=== PATIENT | male | born 1960 | race Caucasian/White ===

== ENCOUNTER 2021-08-08 09:17 | Inpatient (IN) ==
[2021-08-08] MEDS ORDERED: SODIUM CHLORIDE 0.9% 1000ML 500 ML IV ONE (09:39)
[2021-08-08] MEDS ORDERED: ALBUT/IPRATROP 3MG/0.5MG NEB 3 ML VIAL NEB ONE (09:39)
[2021-08-08] MEDS ORDERED: methylPREDNISolone 125 MG/2 ML VIAL IV STA (09:39)
[2021-08-08] MEDS ORDERED: LABETALOL HCL IV 5 MG/ML 20ML IV STA (09:39)
[2021-08-08] MEDS ORDERED: cefTRIAXone SODIUM 2,000 MG/70 ML BAG IV STA (09:44)
--- NOTE | 2021-08-08 09:51 | Emergency Department Note ---
Impression & Plan Acute respiratory distress, Hypertension, SOB (shortness of breath), Wheezing ED Provider Note NAME: QUE TINSLEY AGE: 61 SEX: M : 1960 ARRIVES VIA: Ambulance INFORMANT: [Patient] ED PROVIDER(S): [Ortiz Moore MD] CHIEF COMPLAINT: Short of breath HISTORY OF PRESENT ILLNESS: The patient is a 61-year-old male who quit smoking about 10 months ago. He feels he may have COPD although was never officially diagnosed. He has noticed shortness of breath that has worsened over the last several months. Today he was quite short of breath and presents by ambulance. He can hear himself wheeze. He has been using an [id number]-wremwqb inhaler from [employer] which helps a b it with his breathing. In route, he received a DuoNeb which helped quite a bit. Patient states that he takes no medications. He has not seen his doctor in about 5 years. The patient is not vaccinated against COVID-19. He has had no Covid exposures. He denies any fever. He is coughing and the cough is sometimes productive of white sputum. He has a tightness in his chest and some pain in the chest with coughing but no chest pain otherwise. No vomiting or diarrhea. REVIEW OF SYSTEMS: See HPI for pertinent positives and negatives. A total of ten systems were reviewed and were otherwise negative. PMHx/PSHx: See Below SOCIAL HISTORY: See Below. PHYSICAL EXAM: GENERAL: Patient is in mild respiratory distress. HEENT: No acute trauma, normocephalic atraumatic, mucous membranes moist, no nasal congestion, no scleral icterus. NECK: No stridor, no adenopathy, no meningismus, trachea is midline. LUNGS: Wheezing bilaterally, increased respiratory rate, mild respiratory di stress. Accessory muscle use noted. HEART: Mildly tachycardic, regular rhythm, no murmurs. ABDOMEN: Soft, nontender, bowel sounds positive, no hernias, no peritonitis. EXTREMITIES: No cyanosis, mild bilateral pedal edema, full range of motion of all the joints without pain or difficulty, no signs for acute trauma. NEUROLOGIC: Oriented x 3, no acute motor or sensory deficits, no focal weakness. SKIN: No rash, no jaundice, no diaphoresis. DIFFERENTIAL DIAGNOSIS: Reactive airway disease, pneumonia, pneumothorax, COPD, COVID-19, CHF, infection, cardiac ischemia, pulmonary embolism, bronchitis, musculoskeletal, gastrointestinal, as well as other pathologies. EMERGENCY DEPARTMENT COURSE/PROCEDURES: ECG: Indication was shortness of breath. The ECG shows a normal sinus rhythm with a rate of 99. There are some inverted T waves in the anterior leads. Some flattened T waves in the lateral leads. No ST elevation. No PVCs. The QTc is 487. Continuous Cardiac Monitoring: An order was placed for continuous cardiac monitoring. The monitor shows a rate of 101 with sinus tachycardia. Critical Care Note: I have personally spent 53 minutes of critical care time in the direct management of this patient. This includes bedside care, interpretation of diagnostic studies, and testing, discussion with consultants, patient, and family members, and other required patient management activities. This 53 minutes is in excess of all separately billable procedures. MEDICAL DECISION MAKING: There is no leukocytosis or worrisome anemia. There is a normal platelet count. Renal panel testing shows a mildly low potassium, no kidney failure. Lactic acid level was somewhat elevated, consistent with possible infection versus hypoxia/dehydration. Alk phos mildly elevated, the bilirubin was normal. ECG showed a sinus rhythm, no acute ischemia. Cardiac enzyme testing x1 was not consistent with acute cardiac injury. Covid testing returned negative. Chest film did not show pneumonia or CHF. On exam, the patient was obviously short of breath and in mild respiratory distress. He was wheezing. He was hypertensive. The patient was aggressively managed. He was given IV saline, IV Solu-Medrol, IV ceftriaxone. He received a 1 hour DuoNeb. He was ordered for IV labetalol however, the patient's blood pressure began to trend down on its own as per nursing staff and thus, this med was held. The patient does seem to be improving with the nebulizer treatment and Solu- Medrol treatment. He is in need of a hospital stay given his severe dyspnea. He has not been to see a physician in some time. I do suspect some underlying lung disease. He likely has an acute bronchitis which has flared his underlying lung issue. I spoke to the patient, I spoke with the case managers. The on-call hospitalist was consulted. Past Med/Surg History Medical History FOUZIA (generalized anxiety disorder) HTN (hypertension) Mood disorder Surgical History Hx of craniotomy Family History Father Iliac aneurysm Social History Smoking Status: Former smoker Tobacco Type: Cigarettes Hx Alcohol Use: Yes Alcohol type: beer Alcohol Intake Frequency: 2-4 x/Month Feels Safe at Home: Yes Allergies Allergies Allergy/AdvReac Type Severity Reaction Status Date / Time No Known Allergies Allergy Unverified 08/08/21 10:11 Home Meds Home Medications Medication Instructions Recorded Confirmed No Known Home Medications 08/08/21 08/08/21 Results & Data (ED) Vital Signs Vital Signs - 24 hr 08/08/21 09:30 08/08/21 09:50 08/08/21 10:00 Temperature 37.5 C Temperature Source Oral Pulse Rate 101 H 90 Pulse Rate [Right] Pulse Rate from SpO2 Sensor 91 H Pulse Rhythm Regular Pulse Strength Normal Respiratory Rate 24 28 H Respiratory Effort / Characteristics Spontaneous Short of Breath SOB on Exertion Spontaneous Short of Breath SOB on Exertion Respiratory Depth Normal Normal Respiratory Pattern Regular Tachypnea Tachypnea Blood Pressure 173/111 H 122/93 Blood Pressure Mean 131 102 Blood Pressure Position Semi-fowlers Pulse Oximetry 86 L 93 Oxygen Delivery Method Room Air Nasal Cannula Nasal Cannula Oxygen Flow Rate 0 2 2 Sepsis Recent Fever Within 48 Hours No Sepsis New/Unexplained Change in Mental Status No Sepsis Action Taken by Nursing Physician Notified Oxygen Flow Rate - Titration 2 Pulse Oximetry Post Tiitration 93 08/08/21 10:08 08/08/21 10:15 08/08/21 10:30 Temperature Temperature Source Pulse Rate 100 H 85 Pulse Rate [Right] 88 Pulse Rate from SpO2 Sensor 101 H 87 Pulse Rhythm Pulse Strength Respiratory Rate 24 28 H 25 H Respiratory Effort / Characteristics Spontaneous Short of Breath SOB on Exertion Spontaneous Grunting Respiratory Depth Respiratory Pattern Blood Pressure 114/88 126/84 Blood Pressure Mean 96 98 Blood Pressure Position Pulse Oximetry 93 92 93 Oxygen Delivery Method Nasal Cannula Nasal Cannula Nasal Cannula Oxygen Flow Rate 2 2 2 Sepsis Recent Fever Within 48 Hours Sepsis New/Unexplained Change in Mental Status Sepsis Action Taken by Nursing Oxygen Flow Rate - Titration Pulse Oximetry Post Tiitration 08/08/21 10:45 Temperature Temperature Source Pulse Rate 94 H Pulse Rate [Right] Pulse Rate from SpO2 Sensor 94 H Pulse Rhythm Pulse Strength Respiratory Rate 24 Respiratory Effort / Characteristics Respiratory Depth Respiratory Pattern Blood Pressure 147/106 H Blood Pressure Mean 119 Blood Pressure Position Pulse Oximetry 99 Oxygen Delivery Method Nebulizer Oxygen Flow Rate Sepsis Recent Fever Within 48 Hours Sepsis New/Unexplained Change in Mental Status Sepsis Action Taken by Nursing Oxygen Flow Rate - Titration Pulse Oximetry Post Tiitration Home Medications Current Medication List: was personally reviewed by me Laboratory Data Attestation: I reviewed the patient's lab results. Result diagrams: 08/08/21 09:40 08/08/21 09:40 Lab Results 08/08/21 08/08/21 08/08/21 Range/Units 09:30 09:30 09:40 WBC 6.18 (4.8-10.8) K/uL RBC 5.23 (4.7-6.1) M/uL Hgb 17.6 (14.0-18.0) g/dL Hct 52.8 H (42-52) % MCV 101.0 H (80-100) fL MCH 33.7 (25-34) pg MCHC 33.3 (32-36) g/dL RDW Std Deviation 53.1 H (36.4-46.3) fL RDW Coeff of Clem 14.3 (11.5-14.5) % Plt Count 329 (130-400) K/uL MPV 11.1 H (7.4-10.4) fL Immature Gran % (Auto) 1.5 % Neut % (Auto) 59.5 % Lymph % (Auto) 30.9 % Nuckolls % (Auto) 6.6 % Eos % (Auto) 1.3 % Baso % (Auto) 0.2 % Neut # (Auto) 3.68 (1.4-6.5) K/uL Lymph # (Auto) 1.91 (1.2-3.4) K/uL Nuckolls # (Auto) 0.41 (0.11-0.59) K/uL Eos # (Auto) 0.08 (0-0.5) K/uL Baso # (Auto) 0.01 (0-0.2) K/uL Immature Gran # (Auto) 0.09 H (0.00-0.02) K/uL Sodium (136-145) mmol/L Potassium (3.5-5.1) mmol/L Chloride (98-107) mmol/L Carbon Dioxide (21-32) mmol/L Anion Gap (3-11) BUN (7-18) mg/dl Creatinine (0.6-1.4) mg/dl Est Cr Clr Drug Dosing ml/min Est GFR ( Amer) ml/min Est GFR (Non-Af Amer) ml/min BUN/Creatinine Ratio (10-20) Glucose (70-99) mg/dl Lactate (0.4-2.0) mmol/L Calcium (8.5-10.1) mg/dl Magnesium (1.8-2.4) mg/dl Total Bilirubin (0.2-1) mg/dl AST (15-37) U/L ALT (12-78) U/L Alkaline Phosphatase (45-117) U/L Troponin I (0-0.045) ng/ml Total Protein (6.4-8.2) gm/dl Albumin (3.4-5.0) gm/dl Globulin (2.5-4.0) gm/dl Albumin/Globulin Ratio (0.9-2) COVID-19 Eval Order Covid19 at [facility] SARS-CoV-2 (PCR) NEGATIVE (Negative) 08/08/21 08/08/21 Range/Units 09:40 10:11 WBC (4.8-10.8) K/uL RBC (4.7-6.1) M/uL Hgb (14.0-18.0) g/dL Hct (42-52) % MCV (80-100) fL MCH (25-34) pg MCHC (32-36) g/dL RDW Std Deviation (36.4-46.3) fL RDW Coeff of Clem (11.5-14.5) % Plt Count (130-400) K/uL MPV (7.4-10.4) fL Immature Gran % (Auto) % Neut % (Auto) % Lymph % (Auto) % Nuckolls % (Auto) % Eos % (Auto) % Baso % (Auto) % Neut # (Auto) (1.4-6.5) K/uL Lymph # (Auto) (1.2-3.4) K/uL Nuckolls # (Auto) (0.11-0.59) K/uL Eos # (Auto) (0-0.5) K/uL Baso # (Auto) (0-0.2) K/uL Immature Gran # (Auto) (0.00-0.02) K/uL Sodium 138 (136-145) mmol/L Potassium 3.3 L (3.5-5.1) mmol/L Chloride 95 L (98-107) mmol/L Carbon Dioxide 34 H (21-32) mmol/L Anion Gap 9.0 (3-11) BUN 7 (7-18) mg/dl Creatinine 0.91 (0.6-1.4) mg/dl Est Cr Clr Drug Dosing 101.0 ml/min Est GFR ( Amer) 106.5 ml/min Est GFR (Non-Af Amer) 91.9 ml/min BUN/Creatinine Ratio 7.8 L (10-20) Glucose 106 H (70-99) mg/dl Lactate 2.2 H* (0.4-2.0) mmol/L Calcium 8.7 (8.5-10.1) mg/dl Magnesium 2.4 (1.8-2.4) mg/dl Total Bilirubin 0.5 (0.2-1) mg/dl AST 28 (15-37) U/L ALT 37 (12-78) U/L Alkaline Phosphatase 156 H (45-117) U/L Troponin I < 0.015 (0-0.045) ng/ml Total Protein 7.6 (6.4-8.2) gm/dl Albumin 3.2 L (3.4-5.0) gm/dl Globulin 4.4 H (2.5-4.0) gm/dl Albumin/Globulin Ratio 0.7 L (0.9-2) COVID-19 Eval Order SARS-CoV-2 (PCR) (Negative) Administered Medications Discontinued Medications Albuterol (Albut/Ipratrop 3mg/0.5mg Neb 3 Ml Vial) 12 ml NEB ONE ONE Stop: 08/08/21 09:40 Last Admin: 08/08/21 10:30 Dose: 12 ml Documented by: [id number] Sodium Chloride (Nss 1000ml) 500 mls @ 999 mls/hr IV .Q31M ONE Stop: 08/08/21 10:09 Last Admin: 08/08/21 10:42 Dose: 999 mls/hr Documented by: [id number] Ceftriaxone Sodium (Rocephin) 2,000 mg in 70 mls @ 140 mls/hr IV NOW STA Stop: 08/08/21 10:13 Last Infusion: 08/08/21 11:41 Dose: 0 mls/hr Documented by: [id number] Admin: 08/08/21 10:50 Dose: 140 mls/hr Documented by: [id number] Methylprednisolone (Methylprednisolone 125 Mg/2 Ml Vial) 125 mg IV NOW STA Stop: 08/08/21 09:40 Last Admin: 08/08/21 10:47 Dose: 125 mg Documented by: [id number] Potassium Chloride (Potassium Chloride Crtab 20 Meq Tabcr) 40 meq PO NOW STA Stop: 08/08/21 12:55 Last Admin: 08/08/21 13:34 Dose: 40 meq Documented by: [id number] Imaging Data Radiologist's Impression: Chest X-Ray 08/08/21 09:39 XR chest 1V portable HISTORY: 61 years-old Male SOB acute shortness of breath COMPARISON: None TECHNIQUE: Portable AP view of the chest FINDINGS: Cardiac silhouette is upper limits of normal in size. Calcified plaque of the thoracic aorta. No pneumothorax, large pleural effusion or overt pulmonary edema. Mild blunting of the costophrenic angles. There is a suggested small hiatal hernia. No acute fracture. IMPRESSION: 1. No acute processes of the chest. 2. Small hiatal hernia. ACT 112: Negative or not required by law. The above report was generated using voice recognition software. It may contain grammatical, syntax or spelling errors. Electronically signed by: Richardson Vazquez M.D. 08/08/2021 10:20 AM Discharge Plan Visit Data Chief Complaint: Shortness of Breath/Dyspnea Stated Complaint: SOB ED Provider: Ortiz Moore Discharge Problem: Acute respiratory distress, Hypertension, SOB (shortness of breath), Wheezing Patient Disposition: Admitted As Inpatient Condition: Fair
[2021-08-08 09:55] LABS: Basophils # (auto) 0.01 K/uL (0-0.2); Basophils % (auto) 0.2 %; Eosinophils # (auto) 0.08 K/uL (0-0.5); Eosinophils % (auto) 1.3 %; Hematocrit (blood only) 52.8 % (42-52); Hemoglobin 17.6 g/dL (14.0-18.0); Immature Granulocytes # (auto) 0.09 K/uL (0.00-0.02); Immature Granulocytes % (auto) 1.5 %; Lymphocytes # (auto) 1.91 K/uL (1.2-3.4); Lymphocytes % (auto) 30.9 %; Mean Corpuscular Hemoglobin 33.7 pg (25-34); Mean Corpuscular Hgb Conc 33.3 g/dL (32-36); Mean Platelet Volume 11.1 fL (7.4-10.4); Monocytes # (auto) 0.41 K/uL (0.11-0.59); Monocytes % (auto) 6.6 %; Neutrophils # (auto) 3.68 K/uL (1.4-6.5); Neutrophils % (auto) 59.5 %; Platelet Count 329 K/uL (130-400); RDW Coefficient of Variation 14.3 % (11.5-14.5); RDW Standard Deviation 53.1 fL (36.4-46.3); Red Blood Count 5.23 M/uL (4.7-6.1); White Blood Count 6.18 K/uL (4.8-10.8)
[2021-08-08 10:12] LABS: Alanine Aminotransferase 37 U/L (12-78); Albumin Level 3.2 gm/dl (3.4-5.0); Aspartate Aminotransferase 28 U/L (15-37); BUN Creatinine Ratio 7.8 (10-20); Blood Urea Nitrogen 7 mg/dl (7-18); Calcium 8.7 mg/dl (8.5-10.1); Carbon Dioxide 34 mmol/L (21-32); Chloride 95 mmol/L (98-107); Est GFR (African American) 106.5 ml/min; Est GFR (Non-African American) 91.9 ml/min; Glucose 106 mg/dl (70-99); Magnesium 2.4 mg/dl (1.8-2.4); Potassium 3.3 mmol/L (3.5-5.1); Sodium 138 mmol/L (136-145)
[2021-08-08 10:17] LABS: Albumin Globulin Ratio 0.7 (0.9-2); Alkaline Phosphatase 156 U/L (45-117); Bilirubin,Total 0.5 mg/dl (0.2-1); Globulin 4.4 gm/dl (2.5-4.0); Total Protein 7.6 gm/dl (6.4-8.2); Troponin I < 0.015 ng/ml (0-0.045)
--- NOTE | 2021-08-08 10:21 | XRay Report ---
XR chest 1V portable HISTORY: 61 years-old Male SOB acute shortness of breath COMPARISON: None TECHNIQUE: Portable AP view of the chest FINDINGS: Cardiac silhouette is upper limits of normal in size. Calcified plaque of the thoracic aorta. No pneu mothorax, large pleural effusion or overt pulmonary edema. Mild blunting of the costophrenic angles. There is a suggested small hiatal hernia. No acute fracture. IMPRESSION: 1. No acute processes of the chest. 2. Small hiatal hernia. ACT 112: Negative or not required by law. The above report was generated using voice recognition software. It may contain grammatical, syntax o r spelling errors. Electronically signed by: Richardson Vazquez M.D. 08/08/2021 10:20 AM
--- NOTE | 2021-08-08 11:47 | History & Physical Report ---
Date of Service August 08, 2021 Assessment & Plan (1) Acute respiratory failure with hypoxia: Plan: -Admit to [facility] with telemetry -Patient presenting from home with reports of worsening shortness of breath and cough for 8 months -In the ED, found to be hypoxic on room air at 86%, currently requiring 2 L of oxygen via nasal cannula -Former heavy tobacco use, quitting 8 months ago. Suspect underlying COPD. -S/p Solu-Medrol 125 mg, continue with Solu-Medrol 40 mg q8h -S/p IV ceftriaxone, continue with and add doxycycline -Supportive care with nebs, incentive spirometer, flutter valve -wean O2 as able -will need outpatient follow up for PFTs and pulmonary (2) Lower urinary tract symptoms (LUTS): Plan: -check UA -?? BPH -likely will need outpatient urology follow up (3) HTN (hypertension): Plan: -Previously prescribed lisinopril in the past, however self stopped medication several years ago -BP intermittently elevated, continue to monitor and add hypertensive if needed (4) Mood disorder: (5) FOUZIA (generalized anxiety disorder): Plan: -Previously on citalopram and Abilify however self stopped medication several years ago -Outpatient follow-up (6) DVT prophylaxis: Plan: -SQ Lovenox History of Present Illness Chief Complaint: Shortness of breath Primary Care Provider: Luis Miguel Edgar MD 61-year-old male with PMH HTN, mood disorder, anxiety disorder, former tobacco use (quit smoking 8 months ago), and other problems listed below who presents the ED with reports of shortness of breath. Patient reports worsening shortness of breath over the past 8 months. He reports severe shortness of breath with minimal exertion. He also describes chest tightness. He has had a cough productive for ribeiro/white sputum. No fevers or chills. Patient denies lightheadedness, dizziness, diaphoresis, syncopal events. No abdominal pain, nausea, vomiting, diarrhea. Patient reports urinary hesitancy and frequency. No dysuria. In the ED, patient was saturating 86% on room air, currently requiring 2 L of oxygen via nasal cannula. COVID-19 testing negative. CXR negative for acute cardiopulmonary findings. Patient was given IV ceftriaxone, IV Solu- Medrol 125 mg IV, IVF, hour-long nebulizer treatment. Patient reports much i mprovement after nebulizer treatment. Allergies Allergy/AdvReac Type Severity Reaction Status Date / Time No Known Allergies Allergy Unverified 08/16/21 00:08 Home Medications Medication Instructions Recorded Confirmed Type albuterol sulfate 90 mcg/actuation 1 inh INHALATION QID PRN #6.7 g 08/11/21 08/16/21 Rx aerosol inhaler umeclidinium 62.5 mcg-vilanterol 1 ea INHALATION DAILY #60 ea 08/11/21 08/16/21 Rx 25 mcg/actuation powdr for inhalation (Anoro Ellipta) pantoprazole 40 mg tablet,delayed 40 mg PO DAILY #30 tab 08/13/21 08/16/21 Rx release ibuprofen 200 mg tablet (Advil) 400 mg PO Q6H PRN 08/16/21 08/16/21 History prednisone 20 mg tablet 20 mg PO .TAPER UD 08/16/21 08/16/21 History Past Med/Surg History Medical History FOUIZA (generalized anxiety disorder) HTN (hypertension) Mood disorder Surgical History Hx of craniotomy Family History Father Iliac aneurysm Social History Smoking Status: Former smoker Tobacco Type: Cigarettes Hx Alcohol Use: Yes Alcohol type: beer, wine and hard liquor Alcohol Intake Frequency: 2-4 x/Month Hx Substance Use: No Preferred Language: Sinhala Communication Ability: Effective Wing Scorer Required: No Beliefs That Will Affect Care: None marital status: Single Current Living Situation: Other Current Living Situation Comment: Roommate Feels Safe at Home: Yes Assistive Devices: Glasses Review of Systems Review of Systems: ROS per HPI, all other systems reviewed and negative Physical Exam Constitutional: well developed, well nourished and + ill appearing; no acute distress Eyes: PERRL, conjunctivae normal, anicteric sclerae ENMT: external ear and nose normal, oropharynx normal Respiratory: no respiratory distress and + not able to speak in complete sentence Auscultation: + diminished lung sounds and + wheezes (Expiratory throughout all lung rodriguez) Shortness of breath with minimal exertion Cardiovascular: Rate/Rhythm: regular rate and regular rhythm Vessels: normal peripheral pulses Extremities: no edema Gastrointestinal (Abdomen): normal bowel sounds, soft, nontender, no hepatosplenomegaly Musculoskeletal: no cyanosis or clubbing, extremities motor strength 5/5 Skin: no rashes, warm and dry Neurologic: PERRL, EOMI, accommodation nl, no face palsy, no dysarthria Psychiatric: A+Ox3, euthymic affect Results & Data Results & Data ([facility]) Vital Signs (Past 12 Hours) Vital Signs Temp Pulse Pulse Resp BP Pulse Ox 08/08/21 11:30 88 19 160/95 H 100 08/08/21 11:00 92 H 19 152/100 H 99 08/08/21 10:45 94 H 24 147/106 H 99 08/08/21 10:30 85 88 25 H 126/84 93 08/08/21 10:15 100 H 28 H 114/88 92 08/08/21 10:08 24 93 08/08/21 10:00 90 28 H 122/93 93 08/08/21 09:30 37.5 C 101 H 24 173/111 H 86 L Laboratory Results Short CBC 08/08/21 Range/Units 09:40 WBC 6.18 (4.8-10.8) K/uL Hgb 17.6 (14.0-18.0) g/dL Hct 52.8 H (42-52) % Plt Count 329 (130-400) K/uL BMP 08/08/21 09:40 Sodium 138 Potassium 3.3 L Chloride 95 L Carbon Dioxide 34 H BUN 7 Creatinine 0.91 Glucose 106 H Calcium 8.7 Cardiac Enzymes 08/08/21 Range/Units 09:40 Troponin I < 0.015 (0-0.045) ng/ml Liver Function 08/08/21 Range/Units 09:40 Total Bilirubin 0.5 (0.2-1) mg/dl AST 28 (15-37) U/L ALT 37 (12-78) U/L Alkaline Phosphatase 156 H (45-117) U/L Albumin 3.2 L (3.4-5.0) gm/dl Diagnostic Findings Chest X-Ray 08/08/21 09:39 XR chest 1V portable HISTORY: 61 years-old Male SOB acute shortness of breath COMPARISON: None TECHNIQUE: Portable AP view of the chest FINDINGS: Cardiac silhouette is upper limits of normal in size. Calcified plaque of the thoracic aorta. No pneumothorax, large pleural effusion or overt pulmonary edema. Mild blunting of the costophrenic angles. There is a suggested small hiatal hernia. No acute fracture. IMPRESSION: 1. No acute processes of the chest. 2. Small hiatal hernia. ACT 112: Negative or not required by law. The above report was generated using voice recognition software. It may contain grammatical, syntax or spelling errors. Electronically signed by: Richardson Vazquez M.D. 08/08/2021 10:20 AM Code Status & VTE Plan Code Status Patient is a full code as per my discussion with him. VTE Prophylaxis Plan VTE Prophylaxis will be ordered: Yes Supervising Physician Co-Signing Physician Notes Patient was seen and examined. Agree with Kristan RICHARDS exam, assessment and plan. 61-year-old male with PMH of HTN, mood disorder, anxiety disorder, former tobacco used presented to the ER with worsening shortness of breath. Patient said shortness of breath has been worsening in the last few months associated with chest tightness. He said he ran out of breath minimal exertion. Denies any palpitation, dizziness, diaphoresis, lightheadedness, nausea and vomiting. In the ER he was found to be hypoxia with Oxygen level 86% and was placed on 2 L of oxygen via nasal cannula. COVID-19 testing negative. CXR on admission negative for acute cardiopulmonary findings. Received IV ceftriaxone, IV Solu- Medrol 125 mg IV, IVF, hour-long nebulizer treatment. Continue antibiotic with Rocephin and doxycycline. will add incentive spirometer, flutter valve. Continue oxygen supplement. Continue monitor closely. MD Emani
[2021-08-08 12:32] LABS: Allen Test Pos (Pos); Base Excess ABG 3.8 mEq/L (-9-1.8); HCO3 ABG 35 mmol/L (19-24); Oxygen Saturation ABG 90.4 % (90-95); PCO2 ABG 83 mmHg (35-46); PO2 ABG 66 mmHg (80-95); pH ABG 7.24 (7.35-7.45)
--- NOTE | 2021-08-08 12:34 | CT Scan Report ---
CT lung screening (low dose) CLINICAL HISTORY: hypoxia, suspected COPD, former smoker COMPARISON STUDY: No previous studies for comparison. CT DOSE: 134.12 mGy.cm TECHNIQUE: Low-dose helical CT was acquired without intravenous contrast from lung apices to bases a nd reconstructed at 2.5 mm every 2 mm. Automated exposure control was utilized for the study. A dos e lowering technique was utilized adhering to the principles of ALARA. FINDINGS: Suboptimal evaluation of the lung bases due to the mild respiratory motion artifact. No pn eumothorax. No pleural effusions. Mild diffuse bronchial wall thickening. Mild emphysema. Suboptimal evaluation of the lungs due to the low-dose technique. There is mild emphysema. Mild focal reticulono dular interstitial thickening at the lung apices. Dominant nodular density within the right lung apex measures 5 mm. This could be chronic or represent mild inflammatory/infectious change. No suspicious pulmonary nodules identified. There are a few tiny tree-in-bud nodular opacities within the lungs mo st pronounced within the right lower lobe. This may represent a mild infectious bronchiolitis. There is trace fluid within the trachea and mainstem bronchi. No mediastinal or hilar lymphadenopathy. Limi raeann views of the upper abdomen demonstrate a normal liver, spleen, and adrenal glands. There is a sma ll hiatus hernia. Normal caliber thoracic aorta. The heart is normal in size. No pericardial effusion . Multiple old bilateral rib fractures. IMPRESSION: 1. No suspicious pulmonary nodules identified. Tiny nodular densities measuring up to 5 mm at the papi g apices are low suspicion. 2. Focal reticulonodular interstitial thickening within the lung apices with diffuse bronchial wall t hickening and a few scattered tree-in-bud nodular opacities within the lungs. Findings favor a mild i nfectious bronchiolitis. This could obviously be this could also be seen in the setting of respirator y bronchiolitis interstitial lung disease given history of smoking. 3. Otherwise, no focal lung consolidations. 4. Mild emphysema. Overall Lung RADS Category: 2 - Benign appearance or behavior - Nodules with a very low likelihood o f becoming a clinically active cancer due to size or lack of growth. Continue annual screening. Modifier S: No ACT 112: Negative or not required by law. Electronically signed by: Dash Sanchez M.D. 08/08/2021 12:32 PM
[2021-08-08] MEDS ORDERED: POTASSIUM CHLORIDE CRTAB 20 MEQ TABCR PO STA (12:54)
--- NOTE | 2021-08-08 14:00 | Pulmonary Consultation ---
Date of Consultation August 08, 2021 Assessment & Plan (1) Shortness of breath: Attending: Dr. Mendez Impression: Is a 61-year-old male with no medical treatment within the last 5 years. He has a tobacco abuse history since age 17. He quit 8 months ago but does admit to smoking as recently as 3 months ago. Patient presents with hypercapnia. Presumed COPD and presumed obstructive sleep apnea. Will need full outpatient work-up including pulmonary function tests and polysomnog curtis exam. Shortness of breath is most likely secondary to presumed COPD Received Solu-Medrol 125 mg IV in the emergency department Currently scheduled to receive Solu-Medrol 40 mg IV 3 times daily Would initiate taper over 7-day. Outpatient follow-up for pulmonary function testing and polysomnography exam We will work on qualifying him for discharge with AVAPS We will need to step to rule out need for ambulatory supplemental oxygen (2) Hypoxia: Most likely secondary to presumed COPD Oxygenation improved with BiPAP/CPAP therapy We will need to step prior to discharge We will check nocturnal study tonight Continue to monitor on telemetry Check echocardiogram (3) Hypercapnia: Patient presenting PCO2 of 83 Serum CO2 34 Patient will benefit from positive pressure treatment. We will start with BiPAP. Would benefit from AVAPS on discharge (4) Obesity: Patient with BMI of 31.9 kg/m Discussed benefits of weight loss Patient should establish with outpatient PCP and talk about weight loss strategies with them (5) History of tobacco abuse: History of tobacco abuse since age 17 "Quit" 8 months ago but has smoked as recently as 3 months ago Discussed complete abstention with patient (6) Obstructive sleep apnea: Diagnosis of RYAN is presumed based on body habitus and snoring history Recommend patient get polysomnography exam as an outpatient Patient will need BiPAP/AVAPS for hypercapnia Continue with BiPAP at bedtime and as needed (7) COPD (chronic obstructive pulmonary disease): Previous tobacco abuse history since age [age] Patient states that he quit smoking 8 months ago regularly but he has smoked as recently as 3 months ago Recommend complete tobacco abstention We will treat for presumptive COPD Start Anoro Ellipta (LAMA/LABA) Agree with inpatient steroids for bronchospasms on exam Would titrate off quickly as tolerated No indication for antibiotics at this time Could check procalcitonin. No leukocytosis, no lactic acid elevation. (8) DVT prophylaxis: No plans for bronchoscopy or other invasive procedures by pulmonary Would recommend chemical prophylaxis and SCDs Ambulate as tolerated Supervising Physician Co-Signing Physician Notes Patient seen and examined. Me are reviewed. Discussed with critical care DIGNA. Patient likely has underlying obstructive lung disease of significant severity. His CO2 is elevated indicating likely chronic hypercarbic respiratory failure. He would likely benefit from home trilogy. He should have outpatient PFTs performed as well as an overnight attended polysomnogram. Agree with treatment for acute exacerbation of COPD with systemic steroids but can likely get away with a 5-day burst of prednisone. Azithromycin indicated for acute exacerbation of COPD. Do not need more broad-spectrum antibiotics. Patient will need to be assessed for supplemental oxygen prior to discharge. Would continue BiPAP overnight tonight and repeat venous blood gas in the morning to ensure CO2 is clearing. We will continue to follow with you History of Present Illness Reason for Consultation: Shortness of breath\\presumed COPD History of Present Illness Attending: Dr. Mendez This is a 61-year-old male with a past medical history of mood disorder, generalized anxiety disorder, hypertension, lower respiratory tract symptoms, past tobacco abuse history (quit 3 years ago), obesity. The patient states that he has had a progressive shortness of breath and cough for the past several months. He previously smoked and quit 8 years ago but notes that he has smoked periodically with his last cigarette being 3 years ago. He has no ethanol abuse history. He previously worked at [employer] and denies any vocational exposure. He has no prior history of pulmonary function testing or following with a manager wind. On presentation patient was found to be hypoxic and started on supplemental oxygen. Arterial blood gases were obtained which showed PH of 7.24, PCO2 83, PaO2 66, P HCO3 35 on 3 L of supplemental oxygen. Patient was started on BiPAP 10/5 with an FiO2 of 40%. He did not tolerate this well and was changed to CPAP at 10 cm of water. Patient has a generally nonproductive cough but does occasionally produce white sputum. He denies any hemoptysis. He has no history of malignancy. He thinks that his grandfather may have had lung cancer but he is unsure. He has a mother with a history of COPD as a non-smoker. The patient states that he has exertional dyspnea with no chest pain with exertion. The patient is not . He lives with a roommate. He is unvaccinated. He denies exposure to Covid positive people recently. He previously worked at [employer] and is retired. Allergies Allergy/AdvReac Type Severity Reaction Status Date / Time No Known Allergies Allergy Unverified 08/08/21 10:11 Home Medications Medication Instructions Recorded Confirmed Type No Known Home Medications 08/08/21 08/08/21 History Patient History Medical History FOUZIA (generalized anxiety disorder) HTN (hypertension) Mood disorder Surgical History Hx of craniotomy Family History Father Iliac aneurysm Social History Smoking Status: Former smoker Tobacco Type: Cigarettes Hx Alcohol Use: Yes Alcohol type: beer Alcohol Intake Frequency: 2-4 x/Month Feels Safe at Home: Yes Review of Systems Review of Systems: All systems reviewed & are unremarkable except as noted in Subjective Physical Exam Physical Exam: GENERAL : No acute distress EYES: No icterus, gaze conjugate NOSE: No evidence of epistaxis MOUTH: No lesions or candidiasis. CPAP mask in place NECK: Supple. No JVD LUNGS: Deep inspiration induces cough. Patient does have expiratory wheezes in bilateral midlung zones. HEART: Regular, rate controlled. No appreciation of ectopy ABDOMEN: Soft, NT, ND, BS Present EXTREMITIES: No LE edema, pedal pulses intact and equal bilaterally NEURO: A&OX3 Results & Data Results & Data ([facility]) Vital Signs (Past 12 Hours) Vital Signs Temp Pulse Pulse Resp BP BP Pulse Ox 08/08/21 13:15 81 22 94 08/08/21 12:56 84 20 132/73 92 08/08/21 12:06 89 L 08/08/21 11:30 88 19 160/95 H 100 08/08/21 11:00 92 H 19 152/100 H 99 08/08/21 10:45 94 H 24 147/106 H 99 08/08/21 10:30 85 88 25 H 126/84 93 08/08/21 10:15 100 H 28 H 114/88 92 08/08/21 10:08 24 93 08/08/21 10:00 90 28 H 122/93 93 08/08/21 09:30 37.5 C 101 H 24 173/111 H 86 L Laboratory Results 08/08/21 09:40 08/08/21 09:40 08/08/21 12:12 ABG pH 7.24 L ABG pCO2 83 H ABG pO2 66 L ABG HCO3 35 H ABG O2 Saturation 90.4 ABG Base Excess 3.8 H Lactic acid 1.8 Diagnostic Findings Chest X-Ray 08/08/21 09:39 XR chest 1V portable HISTORY: 61 years-old Male SOB acute shortness of breath COMPARISON: None TECHNIQUE: Portable AP view of the chest FINDINGS: Cardiac silhouette is upper limits of normal in size. Calcified plaque of the thoracic aorta. No pneumothorax, large pleural effusion or overt pulmonary edema. Mild blunting of the costophrenic angles. There is a suggested small hiatal hernia. No acute fracture. IMPRESSION: 1. No acute processes of the chest. 2. Small hiatal hernia. ACT 112: Negative or not required by law. The above report was generated using voice recognition software. It may contain grammatical, syntax or spelling errors. Electronically signed by: Richardson Vazquez M.D. 08/08/2021 10:[address] Lung 08/08/21 11:31 CT lung screening (low dose) CLINICAL HISTORY: hypoxia, suspected COPD, former smoker COMPARISON STUDY: No previous studies for comparison. CT DOSE: 134.12 mGy.cm TECHNIQUE: Low-dose helical CT was acquired without intravenous contrast from lung apices to bases and reconstructed at 2.5 mm every 2 mm. Automated exposure control was utilized for the study. A dose lowering technique was utilized adhering to the principles of ALARA. FINDINGS: Suboptimal evaluation of the lung bases due to the mild respiratory motion artifact. No pneumothorax. No pleural effusions. Mild diffuse bronchial wall thickening. Mild emphysema. Suboptimal evaluation of the lungs due to the low-dose technique. There is mild emphysema. Mild focal reticulonodular interstitial thickening at the lung apices. Dominant nodular density within the right lung apex measures 5 mm. This could be chronic or represent mild inflammatory/infectious change. No suspicious pulmonary nodules identified. There are a few tiny tree-in-bud nodular opacities within the lungs most pronounced within the right lower lobe. This may represent a mild infectious bronchiolitis. There is trace fluid within the trachea and mainstem bronchi. No mediastinal or hilar lymphadenopathy. Limited views of the upper abdomen demonstrate a normal liver, spleen, and adrenal glands. There is a small hiatus hernia. Normal caliber thoracic aorta. The heart is normal in size. No perica rdial effusion. Multiple old bilateral rib fractures. IMPRESSION: 1. No suspicious pulmonary nodules identified. Tiny nodular densities measuring up to 5 mm at the lung apices are low suspicion. 2. Focal reticulonodular interstitial thickening within the lung apices with diffuse bronchial wall thickening and a few scattered tree-in-bud nodular opacities within the lungs. Findings favor a mild infectious bronchiolitis. This could obviously be this could also be seen in the setting of respiratory bronchiolitis interstitial lung disease given history of smoking. 3. Otherwise, no focal lung consolidations. 4. Mild emphysema. Overall Lung RADS Category: 2 - Benign appearance or behavior - Nodules with a very low likelihood of becoming a clinically active cancer due to size or lack of growth. Continue annual screening. Modifier S: No ACT 112: Negative or not required by law. Electronically signed by: Dash Sanchez M.D. 08/08/2021 12:32 PM Medications Administered Current Inpatient Medications Methylprednisolone (Methylprednisolone 40 Mg/Ml Vial) 40 mg IV Q8H SADIA Stop: 09/07/21 17:59 Patient was started on ceftriaxone and doxycycline in the emergency department PG Care Time/CCT Total # of Minutes Spent Total Time Spent with Patient: Total time spent is greater than 50% in coordination of care (as documented) at patient's floor/unit and/or counseling patient: 50 minutes Coding Level of Care Code 90934 Initial Inpt Care Lvl 3 Diagnoses Shortness of breath R06.02 Hypoxia R09.02 Hypercapnia R06.89 Obesity E66.9 History of tobacco abuse Z87.891 Obstructive sleep apnea G47.33 COPD (chronic obstructive pulmonary disease) J44.9 DVT prophylaxis Z29.9 Time Spent (min) 50
--- NOTE | 2021-08-08 14:32 | Electrocardiogram Report ---
Test Reason : Blood Pressure : / mmHG Vent. Rate : 099 BPM Atrial Rate : 099 BPM P-R Int : 122 ms QRS Dur : 092 ms QT Int : 380 ms P-R-T Axes : 072 054 085 degrees QTc Int : 487 ms Poor data quality, interpretation may be adversely affected Normal sinus rhythm T wave abnormality, consider anterior ischemia Abnormal ECG No previous ECGs available Confirmed by Eric Rosa ([id number]) on 08/08/2021 2:31:30 PM Referred By: Confirmed By:Eric Rosa
[2021-08-08] MEDS ORDERED: ACETAMINOPHEN 325 MG TAB PO PRN (16:30)
[2021-08-08] MEDS ORDERED: ALBUT/IPRATROP 3MG/0.5MG NEB 3 ML VIAL NEB PRN (16:42)
[2021-08-08] MEDS: ALBUT/IPRATROP 3MG/0.5MG NEB 3 ML VIAL NEB SCH ×2 (17:46→19:03)
[2021-08-08 18:24] LABS: Base Excess ABG 4.4 mEq/L (-9-1.8); HCO3 ABG 36 mmol/L (19-24); Oxygen Saturation ABG 93.2 % (90-95); PCO2 ABG 86 mmHg (35-46); PO2 ABG 72 mmHg (80-95); pH ABG 7.24 (7.35-7.45)
[2021-08-08 18:26] LABS: Appearance Urine Clear (Clear); Bacteria Urine Automated Negative (Negative); Bilirubin Urine Negative (Negative); Blood Urine Negative (Negative); Color Urine Dark Yellow; Glucose Urine UA Negative (Negative); Ketones Urine Negative (Negative); Leukocyte Esterase Urine Negative (Negative); Nitrite Urine Negative (Negative); Protein Urine Trace (Negative); RBC Urine Automated 0-4 /hpf (0-4); Specific Gravity Urine 1.015 (1.000-1.030); Urobilinogen Urine Negative (Negative); pH Urine 5.5 (4.5-7.5)
[2021-08-08 18:27] LABS: Allen Test Pos (Pos)
[2021-08-08] MEDS ORDERED: FLUARIX QUADRIVALENT 0.5 ML SYR IM ONE (20:36)
[2021-08-08] MEDS: methylPREDNISolone 40 MG in SYRINGE 0 ML IV SCH (21:49)
[2021-08-08] MEDS: DOXYCYCLINE HYCLATE 100 MG in DEXTROSE 5% 100 ML IV SCH (21:49)
[2021-08-08] MEDS: ENOXAPARIN INJ 40 MG/0.4 ML SYR SQ SCH (21:49)
[2021-08-08] MEDS: UMECLIDINIUM/VILANTEROL 62.5/25MCG 7 PUFFS/INHALER INH SCH (21:50)
[2021-08-09] MEDS: methylPREDNISolone 40 MG in SYRINGE 0 ML IV SCH ×3 (01:45→17:28)
[2021-08-09] MEDS: DOXYCYCLINE HYCLATE 100 MG in DEXTROSE 5% 100 ML IV SCH ×2 (06:06→16:29)
[2021-08-09] MEDS: ALBUT/IPRATROP 3MG/0.5MG NEB 3 ML VIAL NEB SCH ×4 (07:09→18:47)
[2021-08-09 07:57] LABS: Hematocrit (blood only) 47.4 % (42-52); Hemoglobin 15.5 g/dL (14.0-18.0); Mean Corpuscular Hemoglobin 33.5 pg (25-34); Mean Corpuscular Hgb Conc 32.7 g/dL (32-36); Mean Corpuscular Volume 102.6 fL (80-100); RDW Coefficient of Variation 14.4 % (11.5-14.5); RDW Standard Deviation 54.1 fL (36.4-46.3); Red Blood Count 4.62 M/uL (4.7-6.1); White Blood Count 4.72 K/uL (4.8-10.8)
[2021-08-09 08:13] LABS: BUN Creatinine Ratio 12.3 (10-20); Calcium 8.9 mg/dl (8.5-10.1); Creatinine Clr Calc Pharmacy 83.6 ml/min; Est GFR (African American) 93.9 ml/min; Potassium 4.4 mmol/L (3.5-5.1)
[2021-08-09 08:16] LABS: Base Excess ABG 3.9 mEq/L (-9-1.8); HCO3 ABG 30 mmol/L (19-24); Oxygen Saturation ABG 90.2 % (90-95); PCO2 ABG 49 mmHg (35-46); PO2 ABG 55 mmHg (80-95)
[2021-08-09 08:21] LABS: Allen Test Pos (Pos)
[2021-08-09 08:25] LABS: Platelet Count 161 K/uL (130-400)
[2021-08-09] MEDS: UMECLIDINIUM/VILANTEROL 62.5/25MCG 7 PUFFS/INHALER INH SCH (08:50)
[2021-08-09] MEDS: cefTRIAXone SODIUM 2,000 MG in DEXTROSE 5% 50 ML IV SCH (09:01)
--- NOTE | 2021-08-09 10:01 | Pulmonology Progress Note ---
Date of Service August 09, 2021 Assessment & Plan (1) Shortness of breath: (2) Hypoxia: (3) Hypercapnia: (4) Obesity: (5) History of tobacco abuse: (6) Obstructive sleep apnea: (7) COPD (chronic obstructive pulmonary disease): (8) DVT prophylaxis: Plan: Attending: Dr. Mendez Impression: Is a 61-year-old male with no medical treatment within the last 5 years. He has a tobacco abuse history since age 17. He quit 8 months ago but does admit to smoking as recently as 3 months ago. Patient presents with hypercapnia. Presumed COPD and presumed obstructive sleep apnea. Will need full outpatient work-up including pulmonary function tests and cathi ysomnography exam. Recommendations: 1. Hypercapnia * ABG improved with BiPAP overnight * This is most likely a progressive disease process baseline serum CO2 and ABG findings * Patient most likely has a combination of severe COPD not previously diagnosed as well as obstructive sleep apnea * Will work on getting patient qualify for AVAPS on discharge * A follow-up in the outpatient clinic for pulmonary function testing and follow-up in the sleep clinic for polysomnography 2. Hypoxia: * Multifactorial as above. * Continue supplemental oxygen to maintain SaO2 between 88 and 92% * Doubt pneumonia as patient's procalcitonin is negative and no leukocytosis on admission * Rapid taper prednisone * Suspect the patient will need supplemental oxygen on discharge. Will need to step testing the day of discharge. 3. COPD * Presumed COPD based on history and clinical presentation * Started on Anoro Ellipta (LAMA/LABA) * Continue DuoNeb as needed * Maintain SaO2 between 88 and 92% * Outpatient follow-up for pulmonary function testing * Continue to encourage complete abstention of tobacco abuse 4. Presumed obstructive sleep apnea * Diagnosis of RYAN is presumed based on body habitus and snoring history * Recommend patient get polysomnography exam as an outpatient * Patient will need BiPAP/AVAPS for hypercapnia * Continue with BiPAP at bedtime and as needed 5. Tobacco abuse * Patient started smoking at age 17. He quit regularly smoking 8 months ago. Most recently smoked approximately 3 months ago. * Counseled on complete tobacco abstention 6. DVT prophylaxis * No plans from a pulmonary perspective for invasive procedures * Continue enoxaparin daily Thank you for including us in the care of this patient. We will continue to follow along with you at this time. Admission and Anticipated Discharge Date Admission Date: August 08, 2021 Subjective Attending: Dr. Mendez Patient seen and examined at bedside.He is sitting on the edge of the bed comfo rtably.He feels better but still has some shortness of breath. Cough. He denies fever, chills, sweats, is rigors. No nausea or vomiting. He has not been walking on the floors yet. He did well with BiPAP last night. However, he did complain about pressure across the bridge of his nose. I explained that that can be modified with the mask on outpatient trials.He has no other acute complaints at this time. Review of Systems Review of Systems: All systems reviewed & are unremarkable except as noted in Subjective Physical Exam Physical Exam: GENERAL : No acute distress EYES: No icterus, gaze conjugate NOSE: No evidence of epistaxis MOUTH: No lesions or candidiasis NECK: Supple LUNGS: Limited air movement. Diffuse bronchospasm and upper lung rodriguez. No rhonchi. No cough with deep inspiration today. HEART: Regular, rate controlled ABDOMEN: Soft, NT, ND, BS Present EXTREMITIES: No LE edema, pedal pulses intact NEURO: A&OX3 Results & Data Results & Data ([facility]) Vital Signs (Past 12 Hours) Vital Signs Temp Pulse Pulse Pulse Resp BP Pulse Ox 08/09/21 07:44 36.7 C 59 L 20 130/73 93 08/09/21 07:13 79 24 90 08/09/21 07:10 79 24 90 08/09/21 04:05 36.8 C 81 24 136/51 L 94 08/09/21 01:59 67 21 92 08/08/21 23:48 37.1 C 67 24 110/73 94 08/08/21 22:52 78 20 92 08/08/21 22:48 78 Pulse Ox 08/09/21 07:44 08/09/21 07:13 08/09/21 07:10 08/09/21 04:05 08/09/21 01:59 08/08/21 23:48 08/08/21 22:52 08/08/21 22:48 92 Laboratory Results 08/09/21 07:34 08/09/21 07:34 08/08/21 08/08/21 08/08/21 12:12 17:14 18:03 ABG pH 7.24 L Cancelled 7.24 L ABG pCO2 83 H Cancelled 86 H ABG pO2 66 L Cancelled 72 L ABG HCO3 35 H Cancelled 36 H ABG O2 Saturation 90.4 Cancelled 93.2 ABG Base Excess 3.8 H Cancelled 4.4 H 08/09/21 08/09/21 07:34 08:01 ABG pH Cancelled 7.40 ABG pCO2 Cancelled 49 H ABG pO2 Cancelled 55 L ABG HCO3 Cancelled 30 H ABG O2 Saturation Cancelled 90.2 ABG Base Excess Cancelled 3.9 H Diagnostic Findings No new diagnostics since admission PG Care Time/CCT Total # of Minutes Spent Total Time Spent with Patient: Total time spent is greater than 50% in coordination of care (as documented) at patient's floor/unit and/or counseling patient:20 minutes Coding Level of Care Code 56361 Subseq Hosp Care Lvl 2 Diagnoses Shortness of breath R06.02 Hypoxia R09.02 Hypercapnia R06.89 Obesity E66.9 History of tobacco abuse Z87.891 Obstructive sleep apnea G47.33 COPD (chronic obstructive pulmonary disease) J44.9 DVT prophylaxis Z29.9 Time Spent (min) 20
[2021-08-09] MEDS: ENOXAPARIN INJ 40 MG/0.4 ML SYR SQ SCH (17:29)
--- NOTE | 2021-08-09 23:59 | Hospitalist Progress Note ---
Date of Service August 09, 2021 Assessment & Plan (1) Acute respiratory failure with hypoxia: Plan: Present on admission with worsening SOB CT showed focal reticulonodular interstitial thickening within the lung apices with diffuse bronchial wall thickening and a few scattered tree-in-bud nodular opacities within the lungs. Findings favor a mild infectious bronchiolitis. CXR showed no acute processes of the chest. ABG showed pH 7.24 and PCO2 83 Received IV solumedrol in the ER Pt was placed in Bipap on admission Continue Solumedrol 40mg IV q8h Continue oxygen supplement Pulm on board Case management will need to be arranged to get BiPAP/AVAPS for hypercapnia on discharge Continue with BiPAP at bedtime and as need Will need outpatient formal sleep study (2) Lower urinary tract symptoms (LUTS): Plan: -check UA -?? BPH -likely will need outpatient urology follow up (3) HTN (hypertension): Plan: -Previously prescribed lisinopril in the past, however self stopped medication several years ago -BP intermittently elevated, continue to monitor and add hypertensive if needed (4) Mood disorder: (5) FOUZIA (generalized anxiety disorder): Plan: -Previously on citalopram and Abilify however self stopped medication several years ago -Outpatient follow-up (6) DVT prophylaxis: Plan: -SQ Lovenox Admission and Anticipated Discharge Date Admission Date: August 08, 2021 Subjective Pt was seen and examined for follow up of SOB Sitting at the edge of the bed with no acute distress Pt said that his breathing improves Review of Systems Review of Systems: All systems reviewed & are unremarkable except as noted in Subjective Physical Exam Physical Exam: General- No acute distress Head- atraumatic Eyes- PERRL, EOMI, ENT- oropharynx clear Neck- supple, no JVD Lungs-+mild wheezing Heart- regular rhythm; no murmur Abdomen- normal bowel sounds, soft, nontender Extremities- no calf tenderness Neuro- alert, oriented x 3; PERRL, EOMI; no facial palsy; no dysarthria Skin- warm & dry Results & Data Results & Data ([facility]) Vital Signs (Past 12 Hours) Vital Signs Temp Pulse Resp BP Pulse Ox 08/09/21 19:41 37.3 C 89 20 133/86 97 08/09/21 18:48 92 H 22 94 08/09/21 15:33 92 H 20 94
[2021-08-10] MEDS: methylPREDNISolone 40 MG in SYRINGE 0 ML IV SCH ×3 (02:20→17:30)
[2021-08-10] MEDS: DOXYCYCLINE HYCLATE 100 MG in DEXTROSE 5% 100 ML IV SCH ×2 (05:40→17:35)
[2021-08-10] MEDS: ALBUT/IPRATROP 3MG/0.5MG NEB 3 ML VIAL NEB SCH ×4 (06:06→18:05)
[2021-08-10 07:23] LABS: Hematocrit (blood only) 46.4 % (42-52); Mean Corpuscular Hemoglobin 33.1 pg (25-34); Mean Corpuscular Hgb Conc 32.3 g/dL (32-36); Mean Corpuscular Volume 102.4 fL (80-100); Mean Platelet Volume 10.9 fL (7.4-10.4); Platelet Count 272 K/uL (130-400); RDW Coefficient of Variation 14.3 % (11.5-14.5); RDW Standard Deviation 53.6 fL (36.4-46.3); Red Blood Count 4.53 M/uL (4.7-6.1); White Blood Count 6.95 K/uL (4.8-10.8)
[2021-08-10 07:39] LABS: BUN Creatinine Ratio 17.4 (10-20); Calcium 8.9 mg/dl (8.5-10.1); Est GFR (African American) 99.9 ml/min; Est GFR (Non-African American) 86.2 ml/min; Magnesium 2.4 mg/dl (1.8-2.4); Phosphorus 3.9 mg/dl (2.5-4.9); Potassium 4.1 mmol/L (3.5-5.1)
--- NOTE | 2021-08-10 07:55 | Hospitalist Progress Note ---
Date of Service August 10, 2021 Assessment & Plan (1) Acute respiratory failure with hypoxia: Plan: Present on admission with worsening SOB CT showed focal reticulonodular interstitial thickening within the lung apices with diffuse bronchial wall thickening and a few scattered tree-in-bud nodular opacities within the lungs. Findings favor a mild infectious bronchiolitis. CXR showed no acute processes of the chest. ABG showed pH 7.24 and PCO2 83 Received IV solumedrol in the ER Pt was placed in Bipap on admission Continue Solumedrol 40mg IV q8h Continue oxygen supplement Pulmonary medicine consulted Arranged to get BiPAP/AVAPS for hypercapnia on discharge Continue with BiPAP at bedtime and as need Start Anoro Ellipta (LAMA/LABA) Will need outpatient PFTs, nocturnal polysomnography 2 step study prior to DC Pauses on telemetry Overnight there were some pauses, several secs noted on telemetry Patient seemed to be asymptomatic during this process cardiology was consulted (2) Lower urinary tract symptoms (LUTS): Plan: - UA unremarkable -?? BPH -likely will need outpatient urology follow up (3) HTN (hypertension): Plan: -Previously prescribed lisinopril in the past, however self stopped medication several years ago -BP intermittently elevated, continue to monitor and add hypertensive if needed (4) Mood disorder: (5) FOUZIA (generalized anxiety disorder): Plan: -Previously on citalopram and Abilify however self stopped medication several years ago -Outpatient follow-up (6) DVT prophylaxis: Plan: -SQ Lovenox Admission and Anticipated Discharge Date Admission Date: August 08, 2021 Subjective Pt was seen and examined for follow up of shortness of breath Currently laying in bed, in no acute distress, on nasal cannula, was on BiPAP overnight Says he is feeling much better, today he was able to walk to the bathroom Overnight however there were some pauses noted on telemetry, and therefore cardiology was consulted Currently patient denies any chest pain, increased shortness of breath, abdominal pain, nausea vomiting, dizziness or lightheadedness Contacted by pulmonary, this morning, that IVAP was set up - will need 2 step prior to DC Review of Systems Review of Systems: All systems reviewed & are unremarkable except as noted in Subjective Physical Exam Physical Exam: General- No acute distress, on NC 3L Head- atraumatic Eyes- PERRL, EOMI, ENT- oropharynx clear Neck- supple, no JVD Lungs-+ expiratory wheezing, improved air movement Heart- regular rhythm; no murmur Abdomen- normal bowel sounds, soft, nontender Extremities- no calf tenderness, moves extremities Neuro- alert, oriented x 3; PERRL, EOMI; no facial palsy; no dysarthria Skin- warm & dry Results & Data Results & Data ([facility]) Vital Signs (Past 12 Hours) Vital Signs Temp Pulse Pulse Pulse Resp BP Pulse Ox 08/10/21 06:56 36.8 C 67 18 137/93 97 08/10/21 06:07 75 20 95 08/10/21 04:00 36.6 C 69 20 144/99 H 95 08/10/21 03:19 60 16 93 08/10/21 00:00 36.5 C 64 19 129/81 94 08/09/21 23:00 66 13 95 Laboratory Results 08/10/21 08/10/21 08/10/21 Range/Units 06:34 06:34 06:34 WBC (4.8-10.8) K/uL RBC (4.7-6.1) M/uL Hgb (14.0-18.0) g/dL Hct (42-52) % MCV (80-100) fL MCH (25-34) pg MCHC (32-36) g/dL RDW Std Deviation (36.4-46.3) fL RDW Coeff of Clem (11.5-14.5) % Plt Count (130-400) K/uL MPV (7.4-10.4) fL ABG pH (7.35-7.45) ABG pCO2 (35-46) mmHg ABG pO2 (80-95) mmHg ABG HCO3 (19-24) mmol/L ABG O2 Saturation (90-95) % ABG Base Excess (-9-1.8) mEq/L Richi Test (Pos) Barometric Pressure mm/Hg Oxygen Given Sodium 136 (136-145) mmol/L Potassium 4.1 (3.5-5.1) mmol/L Chloride 98 (98-107) mmol/L Carbon Dioxide 34 H (21-32) mmol/L Anion Gap 4.0 (3-11) BUN 17 (7-18) mg/dl Creatinine 0.96 (0.6-1.4) mg/dl Est Cr Clr Drug Dosing 88.0 ml/min Est GFR ( Amer) 99.9 ml/min Est GFR (Non-Af Amer) 86.2 ml/min BUN/Creatinine Ratio 17.4 (10-20) Glucose 127 H (70-99) mg/dl Calcium 8.9 (8.5-10.1) mg/dl Phosphorus 3.9 (2.5-4.9) mg/dl Magnesium 2.4 (1.8-2.4) mg/dl Troponin I < 0.015 (0-0.045) ng/ml Lyme Disease IgG Ab Pending Lyme Disease IgM Ab Pending 08/10/21 08/10/21 08/09/21 Range/Units 06:34 02:20 08:01 WBC 6.95 (4.8-10.8) K/uL RBC 4.53 L (4.7-6.1) M/uL Hgb 15.0 (14.0-18.0) g/dL Hct 46.4 (42-52) % MCV 102.4 H (80-100) fL MCH 33.1 (25-34) pg MCHC 32.3 (32-36) g/dL RDW Std Deviation 53.6 H (36.4-46.3) fL RDW Coeff of Clem 14.3 (11.5-14.5) % Plt Count 272 D (130-400) K/uL MPV 10.9 H (7.4-10.4) fL ABG pH 7.40 (7.35-7.45) ABG pCO2 49 H (35-46) mmHg ABG pO2 55 L (80-95) mmHg ABG HCO3 30 H (19-24) mmol/L ABG O2 Saturation 90.2 (90-95) % ABG Base Excess 3.9 H (-9-1.8) mEq/L Richi Test Pos (Pos) Barometric Pressure 734.7 mm/Hg Oxygen Given 5L Sodium (136-145) mmol/L Potassium (3.5-5.1) mmol/L Chloride (98-107) mmol/L Carbon Dioxide (21-32) mmol/L Anion Gap (3-11) BUN (7-18) mg/dl Creatinine (0.6-1.4) mg/dl Est Cr Clr Drug Dosing ml/min Est GFR ( Amer) ml/min Est GFR (Non-Af Amer) ml/min BUN/Creatinine Ratio (10-20) Glucose (70-99) mg/dl Calcium (8.5-10.1) mg/dl Phosphorus (2.5-4.9) mg/dl Magnesium (1.8-2.4) mg/dl Troponin I < 0.015 (0-0.045) ng/ml Lyme Disease IgG Ab Lyme Disease IgM Ab 08/09/21 08/09/21 Range/Units 07:34 07:34 WBC 4.72 L (4.8-10.8) K/uL RBC 4.62 L (4.7-6.1) M/uL Hgb 15.5 (14.0-18.0) g/dL Hct 47.4 (42-52) % MCV 102.6 H (80-100) fL MCH 33.5 (25-34) pg MCHC 32.7 (32-36) g/dL RDW Std Deviation 54.1 H (36.4-46.3) fL RDW Coeff of Clem 14.4 (11.5-14.5) % Plt Count 161 D (130-400) K/uL MPV 11.0 H (7.4-10.4) fL ABG pH (7.35-7.45) ABG pCO2 (35-46) mmHg ABG pO2 (80-95) mmHg ABG HCO3 (19-24) mmol/L ABG O2 Saturation (90-95) % ABG Base Excess (-9-1.8) mEq/L Richi Test (Pos) Barometric Pressure mm/Hg Oxygen Given Sodium 138 (136-145) mmol/L Potassium 4.4 D (3.5-5.1) mmol/L Chloride 99 (98-107) mmol/L Carbon Dioxide 31 (21-32) mmol/L Anion Gap 7.0 (3-11) BUN 12 D (7-18) mg/dl Creatinine 1.01 (0.6-1.4) mg/dl Est Cr Clr Drug Dosing 83.6 ml/min Est GFR ( Amer) 93.9 ml/min Est GFR (Non-Af Amer) 81.0 ml/min BUN/Creatinine Ratio 12.3 (10-20) Glucose 126 H (70-99) mg/dl Calcium 8.9 (8.5-10.1) mg/dl Phosphorus (2.5-4.9) mg/dl Magnesium (1.8-2.4) mg/dl Troponin I (0-0.045) ng/ml Lyme Disease IgG Ab Lyme Disease IgM Ab Medications Administered Current Inpatient Medications Acetaminophen (Acetaminophen 325 Mg Tab) 650 mg PO Q4H PRN PRN Reason: pain/fever Stop: 09/07/21 16:29 Albuterol (Albut/Ipratrop 3mg/0.5mg Neb 3 Ml Vial) 3 ml NEB QIDR SADIA Stop: 09/07/21 16:29 Last Admin: 08/10/21 06:06 Dose: 3 ml Documented by: Albuterol (Albut/Ipratrop 3mg/0.5mg Neb 3 Ml Vial) 3 ml NEB Q2H PRN PRN Reason: SOB/WHEEZING Stop: 09/07/21 16:41 Last Admin: 08/09/21 05:45 Dose: 3 ml Documented by: Enoxaparin Sodium (Enoxaparin Inj 40 Mg/0.4 Ml Syr) 40 mg SQ Q24H SADIA Stop: 09/07/21 17:59 Last Admin: 08/09/21 17:29 Dose: 40 mg Documented by: Methylprednisolone 40 mg/ (Syringe) 0.64 mls @ 1.5 mls/min IV Q8H SADIA Stop: 09/07/21 17:59 Last Admin: 08/10/21 02:20 Dose: 1.5 mls/min Documented by: Ceftriaxone Sodium 2,000 mg/ (Dextrose) 70 mls @ 140 mls/hr IV Q24H SADIA; Protocol Stop: 08/15/21 09:59 Last Infusion: 08/09/21 09:37 Dose: Infused Documented by: Doxycycline Hyclate 100 mg/ (Dextrose) 110 mls @ 50 mls/hr IV Q12H SADIA; Protocol Stop: 08/15/21 16:59 Last Admin: 08/10/21 05:40 Dose: 50 mls/hr Documented by: Umeclidinium/Vilanterol (Umeclidinium/Vilanterol 62.5/25mcg 7 Puffs/Inhaler) 1 puffs INH DAILY SADIA Stop: 09/07/21 17:14 Last Admin: 08/09/21 08:50 Dose: 1 puffs Documented by:
[2021-08-10] MEDS: UMECLIDINIUM/VILANTEROL 62.5/25MCG 7 PUFFS/INHALER INH SCH (08:19)
[2021-08-10 08:29] LABS: Lyme Ab IgG w/WB Rflx Negative (Negative); Lyme Ab IgM w/WB Rflx Negative (Negative)
[2021-08-10] MEDS: cefTRIAXone SODIUM 2,000 MG in DEXTROSE 5% 50 ML IV SCH (10:04)
--- NOTE | 2021-08-10 10:59 | Cardiology Consultation ---
Date of Consultation August 10, 2021 Assessment & Plan (1) Acute respiratory distress: (2) COPD exacerbation: (3) Abnormal EKG: (4) Diastolic dysfunction: (5) Sinus pause: 61 year old male admitted with an acute pulmonary exacerbation as noted. Continuous telemetry monitoring reveals sinus as a predominant rhythm with heart rates typically in the 70s and 80s. During presumed hours of sleep there were four pauses up to 3.9 seconds in duration, asymptomatic. No offending medications noted. Lyme negative. TSH requested. Recommend evaluation for underlying sleep apnea/hypoxemia. No overt indication for permanent pacemaker implantation. Patient notably adverse to permanent pacemaker implantation. Abnormal EKG. + Anterior T wave changes suggestive of ischemia. Patient asymptomatic. Troponin less than 0.0.15, negative x 4. Resting echocardiography revealed preserved systolic function, abnormal septal wall motion consistent with RV pressure/volume overload, otherwise, no segmental LV wall motion abnormalities. Recommend outpatient stress testing once recovered from the acute pulmonary exacerbation. Recommend aspirin 81 mg/day and statin therapy given the above, as well as coronary atherosclerosis noted on CT imaging. Recommend risk factor and life style modification. Supervising Physician Co-Signing Physician Notes Patient was seen and personally examined evaluation as above. Patient with asy mptomatic pauses observed and nocturnal hours on telemetry. Suspect hypoxia/possible sleep apnea contributing. No current indications to pacemaker and patient not willing to consider at this time. Would keep on telemetry during her current hospitalization evaluation as noted above History of Present Illness Reason for Consultation: Pauses on telemetry Requesting Physician: Chantal Attending Physician: Nery History of Present Illness 61-year-old male admitted to [facility] on August 08, 2021 with acute respiratory failure with hypoxemia. Pulmonary evaluation revealed obstructive lung disease of significant severity, chronic hypercarbic respiratory failure, and probable underlying obstructive sleep apnea/nocturnal hypoxemia. Patient notes improvement in presenting symptoms, improvement with use of nebulizer treatments. Plans are for outpatient PFTs as well as overnight polysomnogram. Continuous telemetry monitoring reveals sinus as a predominant rhythm with heart rates typically in the 70s and 80s. During presumed hours of sleep there were pauses up to 3.9 seconds in duration, asymptomatic. Lyme negative. TSH requested. EKG on presentation revealed normal sinus rhythm at 99 bpm with anterior T wave abnormality suggestive of ischemia. EKG this morning, August 10, 2021 reveals normal sinus rhythm at 66 bpm with anterior T wave changes suggestive of ischemia and a QTC of 482 ms. Resting echocardiography on August 09, 2021 revealed normal LV chamber size, with mild concentric LVH. LV systolic function was normal, EF 60 to 65%. Abnormal septal wall motion noted, consistent with RV pressure/volume overload. Otherwise, no segmental LV wall motion abnormalities. Grade 1 diastolic dysfunction. No significant valvular pathology. TR jet notably inadequate to calculate PASP. Troponin less than 0.015, negative x4 Patient denies prior cardiac history. He specifically denies history of CAD, DC, CHF, heart murmur, arrhythmia, rheumatic fever, or scarlet fever. Patient denies excessive fatigue, weakness, dizziness, lightheadedness, near syncope, syncope, chest pain, palpitations, or peripheral edema Past Medical and Surgical History: COPD. Hypertension. Generalized anxiety disorder. Family History: Mother with COPD at the age of 69. Father with what sounds like a PE in his 80s. 2 brothers without cardiac issues. Social History: Patient smoked from the age of 19 until the age of 60, quitting in September 2020. Notes prior consumption of alcohol, quitting in December 2019. No illegal drug use. 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 Complete Review of Systems is as stated above, negative, or noncontributory. Allergies Allergy/AdvReac Type Severity Reaction Status Date / Time No Known Allergies Allergy Unverified 08/08/21 10:11 Home Medications Medication Instructions Recorded Confirmed Type No Known Home Medications 08/08/21 08/08/21 History Patient History Medical History FOUZIA (generalized anxiety disorder) HTN (hypertension) Mood disorder Surgical History Hx of craniotomy Family History Father Iliac aneurysm Social History Smoking Status: Former smoker Tobacco Type: Cigarettes Hx Alcohol Use: Yes Alcohol type: beer, wine and hard liquor Alcohol Intake Frequency: 2-4 x/Month Hx Substance Use: No Preferred Language: French Communication Ability: Effective Food And Nutrition Supervisor Required: No Beliefs That Will Affect Care: None marital status: Single Current Living Situation: Other Current Living Situation Comment: Roommate Feels Safe at Home: Yes Assistive Devices: Oxygen - Continuous Physical Exam Physical Exam: General: A&Ox3. Barrel chested. NAD. HENT: Normocephalic. Atraumatic. Eyes: PER. Conjunctiva pink, sclera clear. Neck: No carotid bruits. No overt JVD. Heart: RRR. No murmur. No rub. No gallop. PMI is nondisplaced. Lungs: Decreased. Diminished. Poor air exchange. Faint expiratory wheeze. Abdomen: +BS. Soft. Nontender. No masses or organomegaly. Extremities: No clubbing, cyanosis, or edema. Limited neurological examination is without focal deficits. Pulses: radial=2/4, posterior tibial=2/4. Results & Data ([facility]) Vital Signs (Past 12 Hours) Vital Signs Temp Pulse Pulse Pulse Resp BP Pulse Ox 08/10/21 10:52 100 H 20 90 08/10/21 08:06 75 08/10/21 07:40 36.8 C 75 17 155/104 H 97 08/10/21 06:56 36.8 C 67 18 137/93 97 08/10/21 06:07 75 20 95 08/10/21 04:00 36.6 C 69 20 144/99 H 95 08/10/21 03:19 60 16 93 08/10/21 00:00 36.5 C 64 19 129/81 94 08/09/21 23:00 66 13 95 Laboratory Results Laboratory Results - last 24 hr 08/10/21 08/10/21 08/10/21 02:20 06:34 06:34 WBC 6.95 RBC 4.53 L Hgb 15.0 Hct 46.4 MCV 102.4 H MCH 33.1 MCHC 32.3 RDW Std Deviation 53.6 H RDW Coeff of Clem 14.3 Plt Count 272 D MPV 10.9 H Sodium 136 Potassium 4.1 Chloride 98 Carbon Dioxide 34 H Anion Gap 4.0 BUN 17 Creatinine 0.96 Est Cr Clr Drug Dosing 88.0 Est GFR ( Amer) 99.9 Est GFR (Non-Af Amer) 86.2 BUN/Creatinine Ratio 17.4 Glucose 127 H Calcium 8.9 Phosphorus 3.9 Magnesium 2.4 Troponin I < 0.015 TSH Lyme Disease IgG Ab Lyme Disease IgM Ab 08/10/21 08/10/21 08/10/21 06:34 06:34 06:34 WBC RBC Hgb Hct MCV MCH MCHC RDW Std Deviation RDW Coeff of Clem Plt Count MPV Sodium Potassium Chloride Carbon Dioxide Anion Gap BUN Creatinine Est Cr Clr Drug Dosing Est GFR ( Amer) Est GFR (Non-Af Amer) BUN/Creatinine Ratio Glucose Calcium Phosphorus Magnesium Troponin I < 0.015 TSH 1.440 Lyme Disease IgG Ab Negative Lyme Disease IgM Ab Negative 08/10/21 10:02 WBC RBC Hgb Hct MCV MCH MCHC RDW Std Deviation RDW Coeff of Clem Plt Count MPV Sodium Potassium Chloride Carbon Dioxide Anion Gap BUN Creatinine Est Cr Clr Drug Dosing Est GFR ( Amer) Est GFR (Non-Af Amer) BUN/Creatinine Ratio Glucose Calcium Phosphorus Magnesium Troponin I < 0.015 TSH Lyme Disease IgG Ab Lyme Disease IgM Ab
--- NOTE | 2021-08-10 12:29 | Electrocardiogram Report ---
Test Reason : Blood Pressure : / mmHG Vent. Rate : 066 BPM Atrial Rate : 066 BPM P-R Int : 112 ms QRS Dur : 106 ms QT Int : 460 ms P-R-T Axes : 055 035 052 degrees QTc Int : 482 ms Normal sinus rhythm Prolonged QT Abnormal ECG When compared with ECG of 08-AUG-2021 09:26, Vent. rate has decreased BY 33 BPM Confirmed by Eric Rosa ([id number]) on 08/10/2021 12:29:09 PM Referred By: REFERRED SELF Confirmed By:Eric Rosa
[2021-08-10] MEDS: ASPIRIN 81 MG ECTAB PO SCH (14:35)
--- NOTE | 2021-08-10 17:09 | Pulmonology Progress Note ---
Date of Service August 10, 2021 Assessment & Plan (1) Shortness of breath: (2) Hypoxia: (3) Hypercapnia: (4) Obesity: (5) History of tobacco abuse: (6) Obstructive sleep apnea: (7) COPD (chronic obstructive pulmonary disease): (8) DVT prophylaxis: Plan: Attending: Dr. Mendez Impression: Is a 61-year-old male with no medical treatment within the last 5 years. He has a tobacco abuse history since age 17. He quit 8 months ago but does admit to smoking as recently as 3 months ago. Patient presents with hypercapnia. Presumed COPD and presumed obstructive sleep apnea. Will need full outpatient work-up including pulmonary function tests and cathi ysomnography exam. Recommendations: 1. Hypercapnia * ABG improved with BiPAP overnight * This is most likely a progressive disease process baseline serum CO2 and ABG findings * Patient most likely has a combination of severe COPD not previously diagnosed as well as obstructive sleep apnea * Patient will need noninvasive ventilator on discharge. [facility] and evaluation. * A follow-up in the outpatient clinic for pulmonary function testing and follow-up in the sleep clinic for polysomnography * Due to chronic respiratory failure consequent to COPD, patient now requires a noninvasive home ventilator. Bilevel therapy with and without a rate would be ineffective as patient requires a volume targeted mode. Ventilation is required to decrease work of breathing and improve pulmonary status. Interruption of ventilator support would lead to decline of health status. NIMV settings per prescription. This should be used during sleep. 2. Hypoxia: * Multifactorial as above. * Continue supplemental oxygen to maintain SaO2 between 88 and 92% * Doubt pneumonia as patient's procalcitonin is negative and no leukocytosis on admission * Rapid taper prednisone * Suspect the patient will need supplemental oxygen on discharge. Will need two step testing the day of discharge. 3. COPD * Presumed COPD based on history and clinical presentation * Continue Anoro Ellipta (LAMA/LABA) during this hospital stay and on discharge * Continue DuoNeb as needed * Maintain SaO2 between 88 and 92% * Outpatient follow-up for pulmonary function testing. First available appointment 09/28/2021. We will keep patient on the list and try and schedule sooner as available. * Continue to encourage complete abstention of tobacco abuse 4. Presumed obstructive sleep apnea * Diagnosis of RYAN is presumed based on body habitus and snoring history * Recommend patient get polysomnography exam as an outpatient. Patient will be scheduled Dr. Mendez as an outpatient * Patient will need BiPAP/AVAPS for hypercapnia * Continue with BiPAP at bedtime and as needed 5. Tobacco abuse * Patient started smoking at age 17. He quit regularly smoking 8 months ago. Most recently smoked approximately 3 months ago. * Counseled on complete tobacco abstention 6. DVT prophylaxis * No plans from a pulmonary perspective for invasive procedures * Continue enoxaparin daily Thank you for including us in the care of this patient. We will continue to follow along with you at this time. Admission and Anticipated Discharge Date Admission Date: August 08, 2021 Supervising Physician Co-Signing Physician Notes Patient seen and examined. He he is breathing easier. He is using the oxygen and states he is less short of breath. He is not coughing or expectorating phlegm. He does feel that the positive airway pressure overnight was beneficial. There are concerns about getting this covered in the outpatient setting due to insurance payment issues. At this point time I think the patient is stabilized and can likely be dismissed from the hospital on supplemental oxygen and his current inhalers. He will need to follow-up with pulmonary with pulmonary function testing and an outpatient polysomnography. The above recommendations and plan were discussed with the patient at bedside. Questions were answered to the best of my ability. We will be happy to continue to manage him in the outpatient setting. Subjective Attending: Dr. Mendez Patient seen and examined in bed 238 bed 2. He seems to be doing better. He feels better. Tolerated BiPAP last night. No acute shortness of breath. Still requiring supplemental oxygen. Patient denies fever, chills, sweats, rigors. No acute changes or acute complaints. Review of Systems Review of Systems: All systems reviewed & are unremarkable except as noted in Subjective Physical Exam Physical Exam: GENERAL : No acute distress EYES: No icterus, gaze conjugate NOSE: No evidence of epistaxis MOUTH: No lesions or candidiasis NECK: Supple LUNGS: Patient continue with coarse breath sounds bilaterally. Posterior upper field bronchospasm appreciated. This improved somewhat with nebulizer treatments. HEART: Regular, rate controlled in the 70s. Telemetry reviewed. Patient with 5 pauses overnight of less than 3.9 seconds. These seem to be associated with hours of sleep. ABDOMEN: Soft, NT, ND, BS Present EXTREMITIES: No LE edema, pedal pulses intact NEURO: A&OX3 Results & Data Results & Data ([facility]) Vital Signs (Past 12 Hours) Vital Signs Temp Pulse Pulse Pulse Resp BP Pulse Ox 08/10/21 15:14 36.6 C 81 16 142/92 H 95 08/10/21 14:54 79 18 98 08/10/21 11:41 36.8 C 84 16 125/84 92 08/10/21 10:52 100 H 20 90 08/10/21 08:06 75 08/10/21 07:40 36.8 C 75 17 155/104 H 97 08/10/21 06:56 36.8 C 67 18 137/93 97 08/10/21 06:07 75 20 95 Laboratory Results 08/10/21 06:34 08/10/21 06:34 08/08/21 08/08/21 08/08/21 12:12 17:14 18:03 ABG pH 7.24 L Cancelled 7.24 L ABG pCO2 83 H Cancelled 86 H ABG pO2 66 L Cancelled 72 L ABG HCO3 35 H Cancelled 36 H ABG O2 Saturation 90.4 Cancelled 93.2 ABG Base Excess 3.8 H Cancelled 4.4 H 08/09/21 08/09/21 07:34 08:01 ABG pH Cancelled 7.40 ABG pCO2 Cancelled 49 H ABG pO2 Cancelled 55 L ABG HCO3 Cancelled 30 H ABG O2 Saturation Cancelled 90.2 ABG Base Excess Cancelled 3.9 H Diagnostic Findings No further diagnostic imaging PG Care Time/CCT Total # of Minutes Spent Total Time Spent with Patient: Total time spent is greater than 50% in coordination of care (as documented) at patient's floor/unit and/or counseling patient: 30 minutes Coding Level of Care Code 25197 Subseq Hosp Care Lvl 2 Diagnoses Shortness of breath R06.02 Hypoxia R09.02 Hypercapnia R06.89 Obesity E66.9 History of tobacco abuse Z87.891 Obstructive sleep apnea G47.33 COPD (chronic obstructive pulmonary disease) J44.9 DVT prophylaxis Z29.9 Time Spent (min) 30
[2021-08-10] MEDS: ENOXAPARIN INJ 40 MG/0.4 ML SYR SQ SCH (17:30)
[2021-08-11] MEDS: methylPREDNISolone 40 MG in SYRINGE 0 ML IV SCH ×3 (01:58→18:08)
[2021-08-11] MEDS: DOXYCYCLINE HYCLATE 100 MG in DEXTROSE 5% 100 ML IV SCH ×2 (05:47→18:10)
[2021-08-11 07:20] LABS: Hematocrit (blood only) 47.8 % (42-52); Hemoglobin 15.7 g/dL (14.0-18.0); Mean Corpuscular Hemoglobin 33.5 pg (25-34); Mean Corpuscular Hgb Conc 32.8 g/dL (32-36); Mean Corpuscular Volume 102.1 fL (80-100); Mean Platelet Volume 10.9 fL (7.4-10.4); Platelet Count 279 K/uL (130-400); RDW Coefficient of Variation 14.5 % (11.5-14.5); RDW Standard Deviation 54.5 fL (36.4-46.3); Red Blood Count 4.68 M/uL (4.7-6.1); White Blood Count 6.52 K/uL (4.8-10.8)
[2021-08-11] MEDS: ALBUT/IPRATROP 3MG/0.5MG NEB 3 ML VIAL NEB SCH ×4 (07:20→19:30)
[2021-08-11 07:57] LABS: BUN Creatinine Ratio 21.8 (10-20); Calcium 9.1 mg/dl (8.5-10.1); Creatinine Clr Calc Pharmacy 106.1 ml/min; Est GFR (African American) 113.3 ml/min; Est GFR (Non-African American) 97.8 ml/min; Magnesium 2.6 mg/dl (1.8-2.4); Potassium 4.6 mmol/L (3.5-5.1)
[2021-08-11 07:59] LABS: Phosphorus 4.7 mg/dl (2.5-4.9)
[2021-08-11] MEDS: UMECLIDINIUM/VILANTEROL 62.5/25MCG 7 PUFFS/INHALER INH SCH (07:59)
[2021-08-11] MEDS: ASPIRIN 81 MG ECTAB PO SCH (07:59)
--- NOTE | 2021-08-11 09:12 | Hospitalist Progress Note ---
Date of Service August 11, 2021 Assessment & Plan (1) Acute respiratory failure with hypoxia: Plan: Present on admission with worsening SOB CT showed focal reticulonodular interstitial thickening within the lung apices with diffuse bronchial wall thickening and a few scattered tree-in-bud nodular opacities within the lungs. Findings favor a mild infectious bronchiolitis. CXR showed no acute processes of the chest. ABG showed pH 7.24 and PCO2 83 Received IV solumedrol in the ER Pt was placed in Bipap on admission Continue Solumedrol 40mg IV q8h Continue oxygen supplement Pulmonary medicine consulted Plan to arranged to get BiPAP/AVAPS for hypercapnia on discharge however not able to do so right now due to lack of insurance Continue with BiPAP at bedtime and as need Start Anoro Ellipta (LAMA/LABA) Will need outpatient PFTs, nocturnal polysomnography 2 step study prior to DC Pauses on telemetry Overnight there were some pauses, several secs noted on telemetry Patient seemed to be asymptomatic during this process Cardiology was consulted -continues to have pauses on telemetry, cardiology continues to most monitor (2) Lower urinary tract symptoms (LUTS): Plan: - UA unremarkable -?? BPH -likely will need outpatient urology follow up (3) HTN (hypertension): Plan: -Previously prescribed lisinopril in the past, however self stopped medication several years ago -BP intermittently elevated, continue to monitor and add hypertensive if needed (4) Mood disorder: (5) FOUZIA (generalized anxiety disorder): Plan: -Previously on citalopram and Abilify however self stopped medication several years ago -Outpatient follow-up (6) DVT prophylaxis: Plan: -SQ Lovenox Admission and Anticipated Discharge Date Admission Date: August 08, 2021 Subjective Pt was seen and examined for follow up of shortness of breath Currently sitting up in bed, in no acute distress, on nasal cannula Says his breathing is better Overnight yesterday however there were some pauses noted on telemetry, and therefore cardiology was consulted more pauses noted on telemetry, cardiology continues to closely monitor Currently patient denies any chest pain, increased shortness of breath, abdo cesario pain, nausea vomiting, dizziness or lightheadedness Contacted by pulmonary, that IVAP can not be set up due to lack of insurance - will need 2 step prior to DC, pulmonary outpt follow up Review of Systems Review of Systems: All systems reviewed & are unremarkable except as noted in Subjective Physical Exam Physical Exam: General- No acute distress, on NC 2L Head- atraumatic Eyes- PERRL, EOMI, ENT- oropharynx clear Neck- supple, no JVD Lungs-+ mild expiratory wheezing, improved air movement Heart- regular rhythm; no murmur Abdomen- normal bowel sounds, soft, nontender Extremities- no calf tenderness, moves extremities Neuro- alert, oriented x 3; PERRL, EOMI; no facial palsy; no dysarthria Skin- warm & dry Results & Data Results & Data ([facility]) Vital Signs (Past 12 Hours) Vital Signs Temp Pulse Pulse Resp BP BP Pulse Ox 08/11/21 08:08 36.8 C 88 18 124/63 95 08/11/21 07:26 59 L 08/11/21 07:21 82 18 90 08/11/21 04:00 36.4 C L 51 L 20 143/98 H 96 08/11/21 03:32 70 16 93 08/10/21 23:41 36.4 C L 72 18 134/90 92 08/10/21 22:11 76 14 98 Laboratory Results 08/11/21 08/11/21 08/10/21 Range/Units 06:46 06:46 10:02 WBC 6.52 (4.8-10.8) K/uL RBC 4.68 L (4.7-6.1) M/uL Hgb 15.7 (14.0-18.0) g/dL Hct 47.8 (42-52) % MCV 102.1 H (80-100) fL MCH 33.5 (25-34) pg MCHC 32.8 (32-36) g/dL RDW Std Deviation 54.5 H (36.4-46.3) fL RDW Coeff of Clem 14.5 (11.5-14.5) % Plt Count 279 (130-400) K/uL MPV 10.9 H (7.4-10.4) fL Sodium 138 (136-145) mmol/L Potassium 4.6 (3.5-5.1) mmol/L Chloride 101 (98-107) mmol/L Carbon Dioxide 33 H (21-32) mmol/L Anion Gap 5.0 (3-11) BUN 18 (7-18) mg/dl Creatinine 0.80 (0.6-1.4) mg/dl Est Cr Clr Drug Dosing 106.1 ml/min Est GFR ( Amer) 113.3 ml/min Est GFR (Non-Af Amer) 97.8 ml/min BUN/Creatinine Ratio 21.8 H (10-20) Glucose 123 H (70-99) mg/dl Calcium 9.1 (8.5-10.1) mg/dl Phosphorus 4.7 (2.5-4.9) mg/dl Magnesium 2.6 H (1.8-2.4) mg/dl Troponin I < 0.015 (0-0.045) ng/ml TSH (0.300-4.500) uIu/ml 08/10/21 Range/Units 06:34 WBC (4.8-10.8) K/uL RBC (4.7-6.1) M/uL Hgb (14.0-18.0) g/dL Hct (42-52) % MCV (80-100) fL MCH (25-34) pg MCHC (32-36) g/dL RDW Std Deviation (36.4-46.3) fL RDW Coeff of Clem (11.5-14.5) % Plt Count (130-400) K/uL MPV (7.4-10.4) fL Sodium (136-145) mmol/L Potassium (3.5-5.1) mmol/L Chloride (98-107) mmol/L Carbon Dioxide (21-32) mmol/L Anion Gap (3-11) BUN (7-18) mg/dl Creatinine (0.6-1.4) mg/dl Est Cr Clr Drug Dosing ml/min Est GFR ( Amer) ml/min Est GFR (Non-Af Amer) ml/min BUN/Creatinine Ratio (10-20) Glucose (70-99) mg/dl Calcium (8.5-10.1) mg/dl Phosphorus (2.5-4.9) mg/dl Magnesium (1.8-2.4) mg/dl Troponin I (0-0.045) ng/ml TSH 1.440 (0.300-4.500) uIu/ml Medications Administered Current Inpatient Medications Acetaminophen (Acetaminophen 325 Mg Tab) 650 mg PO Q4H PRN PRN Reason: pain/fever Stop: 09/07/21 16:29 Albuterol (Albut/Ipratrop 3mg/0.5mg Neb 3 Ml Vial) 3 ml NEB QIDR SADIA Stop: 09/07/21 16:29 Last Admin: 08/11/21 07:20 Dose: 3 ml Documented by: Albuterol (Albut/Ipratrop 3mg/0.5mg Neb 3 Ml Vial) 3 ml NEB Q2H PRN PRN Reason: SOB/WHEEZING Stop: 09/07/21 16:41 Last Admin: 08/09/21 05:45 Dose: 3 ml Documented by: Aspirin (Aspirin 81 Mg Ectab) 81 mg PO QAM SADIA Stop: 09/09/21 12:29 Last Admin: 08/11/21 07:59 Dose: 81 mg Documented by: Enoxaparin Sodium (Enoxaparin Inj 40 Mg/0.4 Ml Syr) 40 mg SQ Q24H SADIA Stop: 09/07/21 17:59 Last Admin: 08/10/21 17:30 Dose: 40 mg Documented by: Methylprednisolone 40 mg/ (Syringe) 0.64 mls @ 1.5 mls/min IV Q8H SADIA Stop: 09/07/21 17:59 Last Admin: 08/11/21 01:58 Dose: 1.5 mls/min Documented by: Ceftriaxone Sodium 2,000 mg/ (Dextrose) 70 mls @ 140 mls/hr IV Q24H SADIA; Protocol Stop: 08/15/21 09:59 Last Infusion: 08/10/21 11:28 Dose: Infused Documented by: Doxycycline Hyclate 100 mg/ (Dextrose) 110 mls @ 50 mls/hr IV Q12H [facility]ADIA; Protocol Stop: 08/15/21 16:59 Last Infusion: 08/11/21 08:00 Dose: Infused Documented by: Umeclidinium/Vilanterol (Umeclidinium/Vilanterol 62.5/25mcg 7 Puffs/Inhaler) 1 puffs INH DAILY SADIA Stop: 09/07/21 17:14 Last Admin: 08/11/21 07:59 Dose: 1 puffs Documented by:
[2021-08-11] MEDS: cefTRIAXone SODIUM 2,000 MG in DEXTROSE 5% 50 ML IV SCH (10:38)
--- NOTE | 2021-08-11 11:00 | Cardiology Progress Note ---
Date of Service August 11, 2021 Assessment & Plan (1) Acute respiratory distress: (2) COPD exacerbation: (3) Abnormal EKG: (4) Diastolic dysfunction: (5) Sinus pause: Plan: 61 year old male admitted with an acute pulmonary exacerbation as noted. Continuous telemetry monitoring notable for nocturnal bradycardia and pauses, now up to 4.9 seconds in duration. Patient asymptomatic. No offending medications noted. Lyme negative. TSH within normal limits. Bradyarrhythmias appear to be secondary to underlying obstructive sleep apnea/hypoxemia though with mild progression noted over the last 24 hours. Patient remains somewhat adverse to permanent pacemaker implantation though appears more receptive than on initial evaluation/consultation if/when indicated. Recommend continued telemetry monitoring. Recommend n.p.o. status after midnight pending continuous telemetry monitoring review and further recommendations/evaluation by mail sorter. Abnormal EKG. + Anterior T wave changes suggestive of ischemia. Patient asymptomatic. Troponin less than 0.0.15, negative x 4. Resting echocardiography revealed preserved systolic function, abnormal septal wall motion consistent with RV pressure/volume overload, otherwise, no segmental LV wall motion abnor malities. Recommend outpatient stress testing once recovered from the acute pulmonary exacerbation. Recommend initiation and utilization of aspirin 81 mg/day and statin therapy given the above, as well as coronary atherosclerosis noted on CT imaging. Recommend risk factor and life style modification. Admission and Anticipated Discharge Date Admission Date: August 08, 2021 Supervising Physician Co-Signing Physician Notes Patient seen and examined. Assessment and plan as outlined above. Patient has had 2 nights notable for intermittent pauses nocturnally. Asymptomatic and likely represent obstructive sleep apnea findings. If patient remain in hospital would keep on telemetry. N.p.o. after midnight to allow more aggressive management of profound pauses observed Subjective Patient seen and examined. Chart, medications, and telemetry reviewed. Telemetry continues to reveal pauses up to 4.9 seconds in duration between midnight and 6:23 AM. There is also a brief run of atrial tachycardia. No bradycardia arrhythmias or pauses noted throughout the day. Patient asymptomatic. BiPAP utilized last night. No new or worsening fatigue, dizziness, lightheadedness, near-syncope, or syncope. No chest pain. No palpitations. Stable dyspnea and cough as well as chest congestion. Review of Systems Review of Systems: Complete review of systems is otherwise as stated above, negative, or noncontributory. Physical Exam Physical Exam: General: A&Ox3. Barrel chested. NAD. HENT: Normocephalic. Atraumatic. Eyes: PER. Conjunctiva pink, sclera clear. Neck: No carotid bruits. No overt JVD. Heart: RRR, 86 bpm. No murmur. No rub. No gallop. PMI is nondisplaced. Lungs: Decreased. Diminished. Scattered rhonchi. No wheeze appreciated. Abdomen: +BS. Soft. Nontender. No masses or organomegaly. Extremities: No clubbing, cyanosis, or edema. Limited neurological examination is without focal deficits. Pulses: radial=2/4, posterior tibial=2/4. Results & Data ([facility]) Vital Signs (Past 12 Hours) Vital Signs Temp Pulse Pulse Resp BP BP Pulse Ox 08/11/21 08:08 36.8 C 88 18 124/63 95 08/11/21 07:26 59 L 08/11/21 07:21 82 18 90 08/11/21 04:00 36.4 C L 51 L 20 143/98 H 96 08/11/21 03:32 70 16 93 08/10/21 23:41 36.4 C L 72 18 134/90 92 Laboratory Results Laboratory Results - last 24 hr 08/11/21 08/11/21 06:46 06:46 WBC 6.52 RBC 4.68 L Hgb 15.7 Hct 47.8 MCV 102.1 H MCH 33.5 MCHC 32.8 RDW Std Deviation 54.5 H RDW Coeff of Clem 14.5 Plt Count 279 MPV 10.9 H Sodium 138 Potassium 4.6 Chloride 101 Carbon Dioxide 33 H Anion Gap 5.0 BUN 18 Creatinine 0.80 Est Cr Clr Drug Dosing 106.1 Est GFR ( Amer) 113.3 Est GFR (Non-Af Amer) 97.8 BUN/Creatinine Ratio 21.8 H Glucose 123 H Calcium 9.1 Phosphorus 4.7 Magnesium 2.6 H
[2021-08-11] MEDS: ENOXAPARIN INJ 40 MG/0.4 ML SYR SQ SCH (18:07)
[2021-08-12] MEDS: methylPREDNISolone 40 MG in SYRINGE 0 ML IV SCH ×3 (03:30→19:50)
[2021-08-12] MEDS: DOXYCYCLINE HYCLATE 100 MG in DEXTROSE 5% 100 ML IV SCH ×2 (06:21→17:47)
[2021-08-12] MEDS: ALBUT/IPRATROP 3MG/0.5MG NEB 3 ML VIAL NEB SCH ×2 (07:29→11:08)
[2021-08-12 07:59] LABS: BUN Creatinine Ratio 19.4 (10-20); Calcium 9.2 mg/dl (8.5-10.1); Est GFR (African American) 106.5 ml/min; Est GFR (Non-African American) 91.9 ml/min; Magnesium 2.7 mg/dl (1.8-2.4); Phosphorus 4.6 mg/dl (2.5-4.9); Potassium 5.8 mmol/L (3.5-5.1)
[2021-08-12] MEDS: UMECLIDINIUM/VILANTEROL 62.5/25MCG 7 PUFFS/INHALER INH SCH (08:57)
[2021-08-12] MEDS: ASPIRIN 81 MG ECTAB PO SCH (08:57)
[2021-08-12] MEDS: cefTRIAXone SODIUM 2,000 MG in DEXTROSE 5% 50 ML IV SCH (10:37)
--- NOTE | 2021-08-12 13:29 | Cardiology Progress Note ---
Date of Service August 12, 2021 Assessment & Plan (1) Acute respiratory distress: (2) COPD exacerbation: (3) Abnormal EKG: (4) Diastolic dysfunction: (5) Sinus pause: Plan: 61 year old male admitted with an acute pulmonary exacerbation as noted. Continuous telemetry monitoring notable for nocturnal bradycardia and pauses, up to 4.9 seconds in duration earlier in admission now improved. Patient asymptomatic. No offending medications noted. Lyme negative. TSH within normal limits. Bradyarrhythmias appear to be secondary to underlying obstructive sleep apnea/hypoxemia though with mild progression noted over the last 24 hours. Patient remains somewhat adverse to permanent pacemaker implantation though appears more receptive than on initial evaluation/consultation if/when indicated. Recommend continued telemetry monitoring. Sinus pauses and bradycardia nocturnally improved with the use of CPAP. One brief run of nonsustained VT asymptomatic. Patient with risk factors for ischemic heart disease but preserved LV systolic function Recommendations: Treat underlying pulmonary disease but discontinue nebulizer. Will order ischemic work-up post discharge or more expedited evaluation if further arrhythmias Patient currently asymptomatic ambulatory in room, wearing oxygen. Admission and Anticipated Discharge Date Admission Date: August 08, 2021 Subjective Patient seen and examined, chart, medications, telemetry reviewed. No profound bradycardia arrhythmias on telemetry overnight. Overall has been feeling well wearing CPAP at night. This morning after nebulizer 1 8 beat run of nonsustained VT., Asymptomatic. No chest pain or worsening dyspnea, no productive cough Review of Systems Review of Systems: All systems reviewed & are unremarkable except as noted in Subjective Physical Exam Constitutional: no acute distress Eyes: PERRL, conjunctivae normal, anicteric sclerae ENMT: external ear and nose normal, oropharynx normal Neck: trachea midline, no thyromegaly Respiratory: Auscultation: + diminished lung sounds and + wheezes (With forced cough) Cardiovascular: Rate/Rhythm: regular rate and regular rhythm Heart Sounds: normal S1 and normal S2 Vessels: no JVD Extremities: no edema Chest (Breasts): normal inspection/palpation of breasts Gastrointestinal (Abdomen): normal bowel sounds, soft, nontender, no hepatosplenomegaly Musculoskeletal: no cyanosis or clubbing, extremities motor strength 5/5 Neurologic: PERRL, EOMI, accommodation nl, no face palsy, no dysarthria Results & Data ([facility]) Vital Signs (Past 12 Hours) Vital Signs Temp Pulse Pulse Resp BP Pulse Ox 10/15/21 11:57 36.9 C 74 18 124/69 95 08/12/21 11:08 90 18 93 08/12/21 08:39 36.8 C 81 16 130/59 L 94 08/12/21 08:00 60 08/12/21 07:30 71 18 98 08/12/21 04:37 36.5 C 64 18 140/102 H 96 08/12/21 03:35 71 13 96 Laboratory Results Laboratory Results - last 24 hr 08/12/21 07:12 Sodium 139 Potassium 5.8 H D Chloride 102 Carbon Dioxide 36 H Anion Gap 2.0 L BUN 18 Creatinine 0.91 Est Cr Clr Drug Dosing 94.0 Est GFR ( Amer) 106.5 Est GFR (Non-Af Amer) 91.9 BUN/Creatinine Ratio 19.4 Glucose 116 H Calcium 9.2 Phosphorus 4.6 Magnesium 2.7 H
--- NOTE | 2021-08-12 16:22 | Electrocardiogram Report ---
Test Reason : Blood Pressure : / mmHG Vent. Rate : 074 BPM Atrial Rate : 074 BPM P-R Int : 118 ms QRS Dur : 090 ms QT Int : 398 ms P-R-T Axes : 046 022 034 degrees QTc Int : 441 ms Normal sinus rhythm T wave abnormality, consider anterior ischemia Abnormal ECG When compared with ECG of 10-AUG-2021 02:04, QRS duration has decreased Confirmed by Eric Rosa ([id number]) on 08/12/2021 4:21:50 PM Referred By: REFERRED SELF Confirmed By:Eric Rosa
--- NOTE | 2021-08-12 16:24 | Hospitalist Progress Note ---
Date of Service August 12, 2021 Assessment & Plan (1) Acute respiratory failure with hypoxia: Plan: Present on admission with worsening SOB CT showed focal reticulonodular interstitial thickening within the lung apices with diffuse bronchial wall thickening and a few scattered tree-in-bud nodular opacities within the lungs. Findings favor a mild infectious bronchiolitis. CXR showed no acute processes of the chest. ABG showed pH 7.24 and PCO2 83 Received IV solumedrol in the ER Pt was placed in Bipap on admission Continue Solumedrol 40mg IV q8h -> now q12h Continue oxygen supplement Pulmonary medicine consulted Plan to arranged to get BiPAP/AVAPS for hypercapnia on discharge Continue with BiPAP at bedtime and as need Start Anoro Ellipta (LAMA/LABA) Will need outpatient PFTs, nocturnal polysomnography 2 step study prior to DC Pauses on telemetry Overnight there were some pauses, several secs noted on telemetry Patient seemed to be asymptomatic during these episodes Cardiology was consulted NSVT -Asymptomatic, cardiology following (2) Lower urinary tract symptoms (LUTS): Plan: - UA unremarkable -?? BPH -likely will need outpatient urology follow up (3) HTN (hypertension): Plan: -Previously prescribed lisinopril in the past, however self stopped medication several years ago -BP intermittently elevated, continue to monitor and add anti-hypertensive if needed (4) Mood disorder: (5) FOUZIA (generalized anxiety disorder): Plan: -Previously on citalopram and Abilify however self stopped medication several years ago -Outpatient follow-up (6) DVT prophylaxis: Plan: -SQ Lovenox Admission and Anticipated Discharge Date Admission Date: August 08, 2021 Subjective Pt was seen and examined for follow up of shortness of breath Currently sitting up in bed, in no acute distress, on nasal cannula Says his breathing is much better Currently patient denies any chest pain, increased shortness of breath, abdominal pain, nausea vomiting, dizziness or lightheadedness IVAP to be set up next week, will need 2 step prior to DC, pulmonary outpt follow up Had NSVT today, remained asymptomatic, cardiology following Review of Systems Review of Systems: All systems reviewed & are unremarkable except as noted in Subjective Physical Exam Physical Exam: General- No acute distress, on NC 2L Head- atraumatic Eyes- PERRL, EOMI, ENT- oropharynx clear Neck- supple, no JVD Lungs-+ mild expiratory wheezing, improved air movement Heart- regular rhythm; no murmur Abdomen- normal bowel sounds, soft, nontender Extremities- no calf tenderness, moves extremities Neuro- alert, oriented x 3; PERRL, EOMI; no facial palsy; no dysarthria Skin- warm & dry Results & Data Results & Data ([facility]) Vital Signs (Past 12 Hours) Vital Signs Temp Pulse Pulse Pulse Resp BP Pulse Ox 08/12/21 15:19 36.6 C 72 20 150/93 H 93 08/12/21 11:57 36.9 C 74 18 124/69 95 08/12/21 11:08 90 18 93 08/12/21 08:39 36.8 C 81 16 130/59 L 94 08/12/21 08:00 60 08/12/21 07:30 71 18 98 08/12/21 04:37 36.5 C 64 18 140/102 H 96 Laboratory Results 08/12/21 Range/Units 07:12 Sodium 139 (136-145) mmol/L Potassium 5.8 H D (3.5-5.1) mmol/L Chloride 102 (98-107) mmol/L Carbon Dioxide 36 H (21-32) mmol/L Anion Gap 2.0 L (3-11) BUN 18 (7-18) mg/dl Creatinine 0.91 (0.6-1.4) mg/dl Est Cr Clr Drug Dosing 94.0 ml/min Est GFR ( Amer) 106.5 ml/min Est GFR (Non-Af Amer) 91.9 ml/min BUN/Creatinine Ratio 19.4 (10-20) Glucose 116 H (70-99) mg/dl Calcium 9.2 (8.5-10.1) mg/dl Phosphorus 4.6 (2.5-4.9) mg/dl Magnesium 2.7 H (1.8-2.4) mg/dl
[2021-08-12 17:10] LABS: BUN Creatinine Ratio 20.1 (10-20); Calcium 9.2 mg/dl (8.5-10.1); Creatinine Clr Calc Pharmacy 90.1 ml/min; Est GFR (African American) 101.1 ml/min; Est GFR (Non-African American) 87.3 ml/min; Potassium 5.1 mmol/L (3.5-5.1)
[2021-08-12] MEDS: ENOXAPARIN INJ 40 MG/0.4 ML SYR SQ SCH (17:47)
[2021-08-13] MEDS: DOXYCYCLINE HYCLATE 100 MG in DEXTROSE 5% 100 ML IV SCH ×2 (04:52→17:08)
[2021-08-13 07:56] LABS: BUN Creatinine Ratio 24.4 (10-20); Calcium 8.5 mg/dl (8.5-10.1); Creatinine Clr Calc Pharmacy 111.1 ml/min; Est GFR (African American) 115.1 ml/min; Est GFR (Non-African American) 99.3 ml/min; Magnesium 2.7 mg/dl (1.8-2.4); Potassium 4.7 mmol/L (3.5-5.1)
[2021-08-13 07:57] LABS: Phosphorus 4.3 mg/dl (2.5-4.9)
[2021-08-13] MEDS: methylPREDNISolone 40 MG in SYRINGE 0 ML IV SCH ×2 (08:05→19:28)
[2021-08-13] MEDS: ASPIRIN 81 MG ECTAB PO SCH (08:05)
[2021-08-13] MEDS: UMECLIDINIUM/VILANTEROL 62.5/25MCG 7 PUFFS/INHALER INH SCH (08:05)
[2021-08-13] MEDS: cefTRIAXone SODIUM 2,000 MG in DEXTROSE 5% 50 ML IV SCH (10:13)
--- NOTE | 2021-08-13 11:57 | Cardiology Progress Note ---
Date of Service August 13, 2021 Assessment & Plan (1) Acute respiratory distress: (2) COPD exacerbation: (3) Abnormal EKG: (4) Diastolic dysfunction: (5) Sinus pause: Plan: The patient's heart rhythm has been stable for the past 24 hours. No additional heart pauses and no runs of ventricular tachycardia. Currently he is maintaining sinus rhythm. Have no further recommendations at this time. Admission and Anticipated Discharge Date Admission Date: August 08, 2021 Subjective The patient had an uneventful night. No additional complaints today. Review of Systems Review of Systems: Review of Systems: See HPI for pertinent positives. All other 10 point review of systems are negative. Physical Exam Physical Exam: General: no acute distress and stated age Head: normocephalic, no masses, lesions, tenderness or abnormalities Eyes: conjunctiva are pink and non-injected, sclera clear Neck: supple, no adenopathy, no bruits, normal jugular venous pulse, no hepatojugular reflux Chest: normal shape and normal respiratory effort Lungs: clear to auscultation and percussion Cardiac Exam: - regular rate & rhythm, no murmurs gallops or rubs - normal S1, normal S2 Pulses: 2(+) throughout Abdomen: abdomen soft, non-tender, no abnormal masses and no hepatosplenomegaly Musculoskeletal: no gait disturbance, no joint inflammation, no deforming arthritis Extremities: no edema and no cyanosis Neuro: grossly normal exam Results & Data ([facility]) Vital Signs (Past 12 Hours) Vital Signs Temp Pulse Pulse Pulse Resp BP Pulse Ox 08/13/21 08:00 37.0 C 54 L 78 18 158/74 H 98 08/13/21 03:57 36.7 C 66 20 162/101 H 95 08/13/21 00:11 36.6 C 60 20 132/93 95 Laboratory Results Laboratory Results - last 24 hr 08/12/21 08/13/21 16:30 07:11 Sodium 137 138 Potassium 5.1 4.7 Chloride 100 100 Carbon Dioxide 34 H 35 H Anion Gap 4.0 3.0 BUN 19 H 19 H Creatinine 0.95 0.77 Est Cr Clr Drug Dosing 90.1 111.1 Est GFR ( Amer) 101.1 115.1 Est GFR (Non-Af Amer) 87.3 99.3 BUN/Creatinine Ratio 20.1 H 24.4 H Glucose 107 H 92 Calcium 9.2 8.5 Phosphorus 4.3 Magnesium 2.7 H Medications Administered Current Inpatient Medications Acetaminophen (Acetaminophen 325 Mg Tab) 650 mg PO Q4H PRN PRN Reason: pain/fever Stop: 09/07/21 16:29 Albuterol (Albut/Ipratrop 3mg/0.5mg Neb 3 Ml Vial) 3 ml NEB QIDR SADIA Stop: 09/07/21 16:29 Last Admin: 08/12/21 11:08 Dose: 3 ml Documented by: Albuterol (Albut/Ipratrop 3mg/0.5mg Neb 3 Ml Vial) 3 ml NEB Q2H PRN PRN Reason: SOB/WHEEZING Stop: 09/07/21 16:41 Last Admin: 08/09/21 05:45 Dose: 3 ml Documented by: Aspirin (Aspirin 81 Mg Ectab) 81 mg PO QAM SADIA Stop: 09/09/21 12:29 Last Admin: 08/13/21 08:05 Dose: 81 mg Documented by: Enoxaparin Sodium (Enoxaparin Inj 40 Mg/0.4 Ml Syr) 40 mg SQ Q24H SADIA Stop: 09/07/21 17:59 Last Admin: 08/12/21 17:47 Dose: 40 mg Documented by: Ceftriaxone Sodium 2,000 mg/ (Dextrose) 70 mls @ 140 mls/hr IV Q24H SADIA; Protocol Stop: 08/15/21 09:59 Last Infusion: 08/13/21 10:43 Dose: Infused Documented by: Doxycycline Hyclate 100 mg/ (Dextrose) 110 mls @ 50 mls/hr IV Q12H [facility]; Protocol Stop: 08/15/21 16:59 Last Infusion: 08/13/21 07:06 Dose: Infused Documented by: Methylprednisolone 40 mg/ (Syringe) 0.64 mls @ 1.5 mls/min IV Q12 [facility]ADIA Stop: 09/11/21 20:59 Last Admin: 08/13/21 08:05 Dose: 1.5 mls/min Documented by: Umeclidinium/Vilanterol (Umeclidinium/Vilanterol 62.5/25mcg 7 Puffs/Inhaler) 1 puffs INH DAILY SADIA Stop: 09/07/21 17:14 Last Admin: 08/13/21 08:05 Dose: 1 puffs Documented by:
--- NOTE | 2021-08-13 16:39 | Hospitalist Progress Note ---
Date of Service August 13, 2021 Assessment & Plan (1) Acute respiratory failure with hypoxia: Plan: Present on admission with worsening SOB CT showed focal reticulonodular interstitial thickening within the lung apices with diffuse bronchial wall thickening and a few scattered tree-in-bud nodular opacities within the lungs. Findings favor a mild infectious bronchiolitis. CXR showed no acute processes of the chest. ABG showed pH 7.24 and PCO2 83 Received IV solumedrol in the ER Pt was placed in Bipap on admission Continue Solumedrol 40mg IV q8h -> now q12h Continue oxygen supplement Pulmonary medicine consulted Plan to arranged to get BiPAP/AVAPS for hypercapnia on discharge Continue with BiPAP at bedtime and as need Start Anoro Ellipta (LAMA/LABA) Will need outpatient PFTs, nocturnal polysomnography 2 step study done today - will need 2L w/ ambulation Pauses on telemetry Overnight there were some pauses, several secs noted on telemetry Patient seemed to be asymptomatic during these episodes Cardiology was consulted NSVT -Asymptomatic, cardiology following (2) Lower urinary tract symptoms (LUTS): Plan: - UA unremarkable -?? BPH -likely will need outpatient urology follow up (3) HTN (hypertension): Plan: -Previously prescribed lisinopril in the past, however self stopped medication several years ago -BP intermittently elevated -will DC on small dose 2.5 mg lisinopril (4) Mood disorder: (5) FOUZIA (generalized anxiety disorder): Plan: -Previously on citalopram and Abilify however self stopped medication several years ago -Outpatient follow-up (6) DVT prophylaxis: Plan: -SQ Lovenox Admission and Anticipated Discharge Date Admission Date: August 08, 2021 Subjective Pt was seen and examined for follow up of shortness of breath Currently sitting up in bed, in no acute distress, on nasal cannula Says his breathing is much better Currently patient denies any chest pain, increased shortness of breath, abdominal pain, nausea vomiting, dizziness or lightheadedness IVAP to be set up next week, 2 step obtained today will need pulmonary outpt follow up Review of Systems Review of Systems: All systems reviewed & are unremarkable except as noted in Subjective Physical Exam Physical Exam: General- No acute distress, on NC 2L Head- atraumatic Eyes- PERRL, EOMI, ENT- oropharynx clear Neck- supple, no JVD Lungs- no expiratory wheezing (improved), improved air movement Heart- regular rhythm; no murmur Abdomen- normal bowel sounds, soft, nontender Extremities- no calf tenderness, moves extremities Neuro- alert, oriented x 3; PERRL, EOMI; no facial palsy; no dysarthria Skin- warm & dry Results & Data Results & Data ([facility]) Vital Signs (Past 12 Hours) Vital Signs Temp Pulse Pulse Pulse Pulse Pulse Pulse 08/13/21 16:00 62 08/13/21 11:55 36.9 C 66 08/13/21 10:52 84 80 87 82 08/13/21 08:00 37.0 C 54 L 78 Pulse Resp Resp Resp Resp Resp Resp 08/13/21 16:00 08/13/21 11:55 20 08/13/21 10:52 85 22 20 22 18 18 08/13/21 08:00 18 BP Pulse Ox Pulse Ox Pulse Ox Pulse Ox Pulse Ox Pulse Ox 08/13/21 16:00 08/13/21 11:55 143/70 H 96 08/13/21 10:52 87 L 92 86 L 92 92 08/13/21 08:00 158/74 H 98 Laboratory Results 08/13/21 08/12/21 Range/Units 07:11 16:30 Sodium 138 137 (136-145) mmol/L Potassium 4.7 5.1 (3.5-5.1) mmol/L Chloride 100 100 (98-107) mmol/L Carbon Dioxide 35 H 34 H (21-32) mmol/L Anion Gap 3.0 4.0 (3-11) BUN 19 H 19 H (7-18) mg/dl Creatinine 0.77 0.95 (0.6-1.4) mg/dl Est Cr Clr Drug Dosing 111.1 90.1 ml/min Est GFR ( Amer) 115.1 101.1 ml/min Est GFR (Non-Af Amer) 99.3 87.3 ml/min BUN/Creatinine Ratio 24.4 H 20.1 H (10-20) Glucose 92 107 H (70-99) mg/dl Calcium 8.5 9.2 (8.5-10.1) mg/dl Phosphorus 4.3 (2.5-4.9) mg/dl Magnesium 2.7 H (1.8-2.4) mg/dl Medications Administered Current Inpatient Medications Acetaminophen (Acetaminophen 325 Mg Tab) 650 mg PO Q4H PRN PRN Reason: pain/fever Stop: 09/07/21 16:29 Albuterol (Albut/Ipratrop 3mg/0.5mg Neb 3 Ml Vial) 3 ml NEB QIDR [facility]ADIA Stop: 09/07/21 16:29 Last Admin: 08/12/21 11:08 Dose: 3 ml Documented by: Albuterol (Albut/Ipratrop 3mg/0.5mg Neb 3 Ml Vial) 3 ml NEB Q2H PRN PRN Reason: SOB/WHEEZING Stop: 09/07/21 16:41 Last Admin: 08/09/21 05:45 Dose: 3 ml Documented by: Aspirin (Aspirin 81 Mg Ectab) 81 mg PO QAM [facility]AD[facility] Stop: 09/09/21 12:29 Last Admin: 08/13/21 08:05 Dose: 81 mg Documented by: Enoxaparin Sodium (Enoxaparin Inj 40 Mg/0.4 Ml Syr) 40 mg SQ Q24H [facility] Stop: 09/07/21 17:59 Last Admin: 08/12/21 17:47 Dose: 40 mg Documented by: Ceftriaxone Sodium 2,000 mg/ (Dextrose) 70 mls @ 140 mls/hr IV Q24H [facility]; Protocol Stop: 08/15/21 09:59 Last Infusion: 08/13/21 10:43 Dose: Infused Documented by: Doxycycline Hyclate 100 mg/ (Dextrose) 110 mls @ 50 mls/hr IV Q12H [facility]; Protocol Stop: 08/15/21 16:59 Last Infusion: 08/13/21 07:06 Dose: Infused Documented by: Methylprednisolone 40 mg/ (Syringe) 0.64 mls @ 1.5 mls/min IV Q12 [facility] Stop: 09/11/21 20:59 Last Admin: 08/13/21 08:05 Dose: 1.5 mls/min Documented by: Umeclidinium/Vilanterol (Umeclidinium/Vilanterol 62.5/25mcg 7 Puffs/Inhaler) 1 puffs INH DAILY [facility] Stop: 09/07/21 17:14 Last Admin: 08/13/21 08:05 Dose: 1 puffs Documented by:
[2021-08-13] MEDS: ENOXAPARIN INJ 40 MG/0.4 ML SYR SQ SCH (17:10)
[2021-08-13] MEDS: PANTOprazole 40 MG TAB PO SCH (17:48)
[2021-08-14] MEDS: DOXYCYCLINE HYCLATE 100 MG in DEXTROSE 5% 100 ML IV SCH (05:39)
[2021-08-14] MEDS: UMECLIDINIUM/VILANTEROL 62.5/25MCG 7 PUFFS/INHALER INH SCH (08:08)
[2021-08-14] MEDS: PANTOprazole 40 MG TAB PO SCH (08:09)
[2021-08-14] MEDS: methylPREDNISolone 40 MG in SYRINGE 0 ML IV SCH (08:09)
[2021-08-14] MEDS: ASPIRIN 81 MG ECTAB PO SCH (08:09)
--- NOTE | 2021-08-14 08:33 | Hospitalist Progress Note ---
Date of Service August 14, 2021 Assessment & Plan (1) Acute respiratory failure with hypoxia: Plan: Present on admission with worsening SOB CT showed focal reticulonodular interstitial thickening within the lung apices with diffuse bronchial wall thickening and a few scattered tree-in-bud nodular opacities within the lungs. Findings favor a mild infectious bronchiolitis. CXR showed no acute processes of the chest. ABG showed pH 7.24 and PCO2 83 Received IV solumedrol in the ER Pt was placed in Bipap on admission Continue Solumedrol 40mg IV q8h -> now q12h Continue oxygen supplement Pulmonary medicine consulted Plan to arranged to get BiPAP/AVAPS for hypercapnia on discharge Continue with BiPAP at bedtime and as need Startd Anoro Ellipta (LAMA/LABA) Will need outpatient PFTs, nocturnal polysomnography 2 step study done - pt will need 2L w/ ambulation Pauses on telemetry Overnight there were some pauses, several secs noted on telemetry Patient seemed to be asymptomatic during these episodes Cardiology was consulted No recent pauses or arrhythmias noted NSVT -Asymptomatic, cardiology following -No recent pauses arrhythmias noted (2) Lower urinary tract symptoms (LUTS): Plan: - UA unremarkable -?? BPH -likely will need outpatient urology follow up (3) HTN (hypertension): Plan: -Previously prescribed lisinopril in the past, however self stopped medication several years ago -BP intermittently elevated -will DC on small dose 2.5 mg lisinopril -Follow-up as outpatient (4) Mood disorder: (5) FOUZIA (generalized anxiety disorder): Plan: -Previously on citalopram and Abilify however self stopped medication several years ago -Outpatient follow-up (6) DVT prophylaxis: Plan: -SQ Lovenox Admission and Anticipated Discharge Date Admission Date: August 08, 2021 Subjective Pt was seen and examined for follow up of shortness of breath Currently sitting up in bed, in no acute distress, on nasal cannula Says his breathing is much better Currently patient denies any chest pain, increased shortness of breath, abdominal pain, nausea vomiting, dizziness or lightheadedness IVAP to be set up next week, 2 step obtained yesterday will need pulmonary outpt follow up Review of Systems Review of Systems: All systems reviewed & are unremarkable except as noted in Subjective Physical Exam Physical Exam: General- No acute distress, on NC 2L Head- atraumatic Eyes- PERRL, EOMI, ENT- oropharynx clear Neck- supple, no JVD Lungs- no expiratory wheezing (improved), improved air movement Heart- regular rhythm; no murmur Abdomen- normal bowel sounds, soft, nontender Extremities- no calf tenderness, moves extremities Neuro- alert, oriented x 3; PERRL, EOMI; no facial palsy; no dysarthria Skin- warm & dry Results & Data Results & Data ([facility]) Vital Signs (Past 12 Hours) Vital Signs Temp Pulse Pulse Pulse Resp BP Pulse Ox 08/14/21 04:52 37.1 C 66 16 158/99 H 97 08/13/21 23:42 74 22 95 08/13/21 23:20 37.2 C 74 22 165/101 H 95 Medications Administered Current Inpatient Medications Acetaminophen (Acetaminophen 325 Mg Tab) 650 mg PO Q4H PRN PRN Reason: pain/fever Stop: 09/07/21 16:29 Albuterol (Albut/Ipratrop 3mg/0.5mg Neb 3 Ml Vial) 3 ml NEB QIDR SADIA Stop: 09/07/21 16:29 Last Admin: 08/12/21 11:08 Dose: 3 ml Documented by: Albuterol (Albut/Ipratrop 3mg/0.5mg Neb 3 Ml Vial) 3 ml NEB Q2H PRN PRN Reason: SOB/WHEEZING Stop: 09/07/21 16:41 Last Admin: 08/09/21 05:45 Dose: 3 ml Documented by: Aspirin (Aspirin 81 Mg Ectab) 81 mg PO QAM [facility] Stop: 09/09/21 12:29 Last Admin: 08/14/21 08:09 Dose: 81 mg Documented by: Enoxaparin Sodium (Enoxaparin Inj 40 Mg/0.4 Ml Syr) 40 mg SQ Q24H [facility] Stop: 09/07/21 17:59 Last Admin: 08/13/21 17:10 Dose: 40 mg Documented by: Ceftriaxone Sodium 2,000 mg/ (Dextrose) 70 mls @ 140 mls/hr IV Q24H [facility]; Protocol Stop: 08/15/21 09:59 Last Infusion: 08/13/21 10:43 Dose: Infused Documented by: Doxycycline Hyclate 100 mg/ (Dextrose) 110 mls @ 50 mls/hr IV Q12H [facility]; Protocol Stop: 08/15/21 16:59 Last Infusion: 08/14/21 08:20 Dose: Infused Documented by: Methylprednisolone 40 mg/ (Syringe) 0.64 mls @ 1.5 mls/min IV Q12 [facility] Stop: 09/11/21 20:59 Last Admin: 08/14/21 08:09 Dose: 1.5 mls/min Documented by: Lisinopril (Lisinopril 2.5 Mg Tab) 2.5 mg PO QAM [facility] Stop: 09/13/21 08:59 Last Admin: 08/14/21 08:08 Dose: 2.5 mg Documented by: Pantoprazole Sodium (Pantoprazole 40 Mg Tab) 40 mg PO QAM [facility] Stop: 09/12/21 17:14 Last Admin: 08/14/21 08:09 Dose: 40 mg Documented by: Umeclidinium/Vilanterol (Umeclidinium/Vilanterol 62.5/25mcg 7 Puffs/Inhaler) 1 puffs INH DAILY [facility] Stop: 09/07/21 17:14 Last Admin: 08/14/21 08:08 Dose: 1 puffs Documented by:
[2021-08-14] MEDS ORDERED: lisinopril 2.5 MG TAB PO SCH (09:00)
--- NOTE | 2021-08-14 09:06 | Discharge Summary ---
Date of Service August 14, 2021 Admission HPI Per Admitting Provider 61-year-old male with PMH HTN, mood disorder, anxiety disorder, former tobacco use (quit smoking 8 months ago), and other problems listed below who presents the ED with reports of shortness of breath. Patient reports worsening shortness of breath over the past 8 months. He reports severe shortness of breath with minimal exertion. He also describes chest tightness. He has had a cough productive for ribeiro/white sputum. No fevers or chills. Patient denies lightheadedness, dizziness, diaphoresis, syncopal events. No abdominal pain, nausea, vomiting, diarrhea. Patient reports urinary hesitancy and frequency. No dysuria. In the ED, patient was saturating 86% on room air, currently requiring 2 L of oxygen via nasal cannula. COVID-19 testing negative. CXR negative for acute cardiopulmonary findings. Patient was given IV ceftriaxone, IV Solu- Medrol 125 mg IV, IVF, hour-long nebulizer treatment. Patient reports much improvement after nebulizer treatment. Admission Exam Per Admitting Provider Constitutional: well developed, well nourished and + ill appearing; no acute distress Eyes: PERRL, conjunctivae normal, anicteric sclerae ENMT: external ear and nose normal, oropharynx normal Respiratory: no respiratory distress and + not able to speak in complete sentence Auscultation: + diminished lung sounds and + wheezes (Expiratory throughout all lung rodriguez) Shortness of breath with minimal exertion Cardiovascular: Rate/Rhythm: regular rate and regular rhythm Vessels: normal peripheral pulses Extremities: no edema Gastrointestinal (Abdomen): normal bowel sounds, soft, nontender, no hepatosplenomegaly Musculoskeletal: no cyanosis or clubbing, extremities motor strength 5/5 Skin: no rashes, warm and dry Neurologic: PERRL, EOMI, accommodation nl, no face palsy, no dysarthria Psychiatric: A+Ox3, euthymic affect Principal Diagnosis Acute respiratory failure with hypoxia COPD exacerbation Sinus pauses Nocturnal hypoxia Discharge Exam General- No acute distress, on NC 2L Head- atraumatic Eyes- PERRL, EOMI, ENT- oropharynx clear Neck- supple, no JVD Lungs- no expiratory wheezing (improved), improved air movement Heart- regular rhythm; no murmur Abdomen- normal bowel sounds, soft, nontender Extremities- no calf tenderness, moves extremities Neuro- alert, oriented x 3; PERRL, EOMI; no facial palsy; no dysarthria Skin- warm & dry Discharge Data Allergies Allergy/AdvReac Type Severity Reaction Status Date / Time No Known Allergies Allergy Unverified 08/08/21 10:11 Consultations 08/08/21 10:37 ED Decision to Admit Stat 08/08/21 12:51 Consult Pulmonology Routine 08/10/21 08:00 Consult Cardiology Routine Ordered Studies 08/08/21 11:31 CT lung screening (low dose) Stat IMPRESSION: 1. No suspicious pulmonary nodules identified. Tiny nodular densities measuring up to 5 mm at the lung apices are low suspicion. 2. Focal reticulonodular interstitial thickening within the lung apices with diffuse bronchial wall thickening and a few scattered tree-in-bud nodular opacities within the lungs. Findings favor a mild infectious bronchiolitis. This could obviously be this could also be seen in the setting of respiratory bronchiolitis interstitial lung disease given history of smoking. 3. Otherwise, no focal lung consolidations. 4. Mild emphysema. Hospital Course (1) Acute respiratory failure with hypoxia: Present on admission with worsening SOB CT showed focal reticulonodular interstitial thickening within the lung apices with diffuse bronchial wall thickening and a few scattered tree-in-bud nodular opacities within the lungs. Findings favor a mild infectious bronchiolitis. CXR showed no acute processes of the chest. ABG showed pH 7.24 and PCO2 83 Received IV solumedrol in the ER Pt was placed in Bipap on admission Continue Solumedrol 40mg IV q8h -> now q12h Continue oxygen supplement Pulmonary medicine consulted Plan to arranged to get BiPAP/AVAPS for hypercapnia on discharge Continue with BiPAP at bedtime and as need Startd Anoro Ellipta (LAMA/LABA) Will need outpatient PFTs, nocturnal polysomnography 2 step study done - pt will need 2L w/ ambulation Sinus Pauses (on telemetry) Overnight there were some pauses, several secs noted on telemetry Patient seemed to be asymptomatic during these episodes Cardiology was consulted No recent pauses or arrhythmias noted NSVT -Asymptomatic, cardiology following -No recent pauses arrhythmias noted (2) Lower urinary tract symptoms (LUTS): - UA unremarkable -?? BPH -likely will need outpatient urology follow up (3) HTN (hypertension): -Previously prescribed lisinopril in the past, however self stopped medication several years ago -BP intermittently elevated -will DC on small dose 2.5 mg lisinopril -Follow-up as outpatient (4) Mood disorder: (5) FOUZIA (generalized anxiety disorder): -Previously on citalopram and Abilify however self stopped medication several years ago -Outpatient follow-up (6) DVT prophylaxis: -SQ Lovenox Total Time Total Time Spent Total Time Spent (In Minutes): 45 Discharge Plan Discharge Items Patient Disposition: Home - Self-Care Reason For Visit: HYPOXIA, COPD Discharge Diagnosis: Acute respiratory failure with hypoxia COPD exacerbation Sinus pauses Nocturnal hypoxia Condition on Discharge: Fair Activity: Per Instructions section Non-emergency contact: Primary Care Provider and Statement Processor Call non-emergency contact if: you have any medication questions and your symptoms worsen Follow-up/Referrals: Luis Miguel Edgar MD [Primary Care Provider] - (Date & Time 08/17/2021 10:00 AM Provider Luis Miguel Edgar MD Department [facility] ) Diet: Regular Addtl Attending Provider Instructions: Follow-up with your primary care doctor, the appointment was scheduled for you for August 17. You will also need to follow-up with pulmonology, have pulmonary studies done and polysomnography, to evaluate for COPD and sleep apnea respectively. Trilogy/breathing machine is supposed to be set up for you early next week. Use supplemental oxygen at 2 L, continuously with ambulation. If you can, check your oxygen level, you should be between 88 and 92%. Use inhaler Anoro/Ellipta, daily as prescribed. Use albuterol inhaler as needed as prescribed. Take prednisone taper, take 2 tablets (40 mg) daily for next 2 days, then take 1 tablet (20 mg) for next 3 days. Pending Studies at Discharge: No Stand-Alone Forms: My [employer], Smoking Cessation Medications and DC Order Prescriptions: New Anoro Ellipta 62.5-25 mcg/actuation Blister With Device 1 ea inhalation DAILY Qty: 60 RF: 0 albuterol sulfate 90 mcg/actuation HFA aerosol inhaler 1 inh inhalation QID PRN (Reason: shortness of breath or wheezing) Qty: 6.7 RF: 1 prednisone 20 mg tablet 20 mg PO UD Qty: 7 RF: 0 pantoprazole 40 mg tablet,delayed release (DR/EC) 40 mg PO DAILY Qty: 30 RF: 0 Discharge Orders: Discharge Order (Routine); Ordered 08/14/21 Ordered By: Bo Gabriel Admission Data Admit Date/Time: 08/08/21 10:49 Attending Provider: Bo Gabriel Admit Provider: Timmy Joaquin Primary Care Provider: Luis Miguel Edgar Other Providers: Timmy Joaquin ; Chase Mendez ; Cole Armenta
[2021-08-14] MEDS: cefTRIAXone SODIUM 2,000 MG in DEXTROSE 5% 50 ML IV SCH (10:00)
== END 2021-08-14 13:23 | disposition home or self-care (01) | DRG 190 ==
LOC: ED 09:17 → SUATTDRO 10:49 → EDINP 10:49 → 2S 20:10

== ENCOUNTER 2024-03-28 11:30 | Observation (INO) ==
--- NOTE | 2024-03-28 13:28 | XRay Report ---
XR hip ANNA 2v w pelvis CLINICAL HISTORY: Hip trauma, fracture suspected, no prior imaging TECHNIQUE: 2 views of the bilateral hips and single frontal view of the pelvis were obtained. Comparison: None available at the time of this dictation. FINDINGS: There is flattening of the left femoral head compatible with old avascular necrosis. Prominent degene rative changes are seen in the bilateral hip joints. No soft tissue abnormality is seen. IMPRESSION: Degenerative changes are seen in the bilateral hip joints with likely chronic collapse of the left fe moral head likely reflecting prior avascular necrosis. ACT 112: Negative or not required by law. Electronically signed by: Mike Medina M.D. 03/28/2024 1:27 PM
--- NOTE | 2024-03-28 14:49 | Electrocardiogram Report ---
Test Reason : Blood Pressure : / mmHG Vent. Rate : 090 BPM Atrial Rate : 090 BPM P-R Int : 140 ms QRS Dur : 074 ms QT Int : 376 ms P-R-T Axes : 070 055 050 degrees QTc Int : 459 ms Poor data quality, interpretation may be adversely affected Normal sinus rhythm Left atrial enlargement Abnormal ECG When compared with ECG of 15-AUG-2021 23:17, Nonspecific T wave abnormality Anteroseptal leads no longer present Confirmed by John Zarate ([id number]) on 03/28/2024 2:48:47 PM Referred By: Confirmed By:John Zarate
[2024-03-28 14:59] LABS: Basophils # (auto) 0.03 K/uL (0.00-0.20); Basophils % (auto) 0.6 %; Eosinophils # (auto) 0.02 K/uL (0.00-0.50); Eosinophils % (auto) 0.4 %; Hematocrit (blood only) 47.6 % (42.0-52.0); Hemoglobin 15.5 g/dl (14.0-18.0); Immature Granulocytes # (auto) 0.04 K/uL (0.01-0.20); Immature Granulocytes % (auto) 0.8 %; Lymphocytes # (auto) 1.51 K/uL (1.20-3.40); Lymphocytes % (auto) 29.4 %; Mean Corpuscular Hemoglobin 30.2 pg (25.0-34.0); Mean Corpuscular Hgb Conc 32.6 g/dL (32.0-36.0); Mean Corpuscular Volume 92.6 fL (80.0-100.0); Mean Platelet Volume 9.1 fL (9.4-12.4); Monocytes % (auto) 7.8 %; Neutrophils # (auto) 3.14 K/uL (1.40-6.50); Platelet Count 282 K/uL (130-400); RDW Coefficient of Variation 16.8 % (11.5-14.5); RDW Standard Deviation 56.8 fL (36.4-46.3); Red Blood Count 5.14 M/uL (4.70-6.10); White Blood Count 5.14 K/ul (4.8-10.8)
--- NOTE | 2024-03-28 15:17 | Emergency Department Note ---
Impression & Plan Osteonecrosis of hip with collapse of femoral head present on x-ray ED Provider Note NAME: QUE TINSLEY AGE: 63 SEX: M : 1960 ARRIVES VIA: Ambulance INFORMANT: Patient, ED PROVIDER(S): Marcos Graff MD CHIEF COMPLAINT: Hip pain x 5 months HPI: This is a 63-year-old male presenting for left hip pain. Patient states that he has had increasing left hip pain for the past 5 months. He was initially felt like a muscle sprain which was well-controlled with Tylenol and [id number] creams. He notes that over the past 5 months he has had increasing pain to this left hip to the point where she actually favoring his right hip now this is began hurting as well. He notes that he is unable to walk. He walks up an 18 steps to get to his house and is been unable to do this for some time. He was upon arrival here he actually required multiple assistance to help get him into the bed and even walk. He is unable to move his leg due to pain on the left side more than the right. ROS: See above HPI for pertinent positives & negatives. A total of 10 systems reviewed and were otherwise negative. PHYSICAL EXAMINATION: General: Chronically ill-appearing Head: Normocephalic and atraumatic Eyes: Normal inspection, extraocular muscles intact Ear, nose, throat: Normal external exam Neck: Normal range of motion Respiratory: lungs clear to auscultation bilaterally Cardiovascular: Regular rate/rhythm, no murmur GI: soft, nontender, no guarding or rebound Extremities: nontender, moves all extremities, Neuro: The patient awake and alert, appropriately conversive, no focal deficits, symmetric faces Skin: Warm, dry, and intact MEDICAL DECISION MAKING: This is a 63-year-old male plantar left hip pain. X-ray done at triage reveals a likely chronic avascular necrosis causing chronic collapse of the left femoral head. -Blood review showed no significant leukocytosis. Electrolytes are slightly out of range. -Chest Xray independently interpreted by me showing no pneumothorax, focal opacity, or pleural effusions. -Patient did not ambulate due to his current pain. He states he has a couple flight of stairs at his residence and cannot do this currently. Will admit the patient for this left femoral head collapse/avascular necrosis. -Discussed with Dr. Rothman, orthopedic surgery, who recommends patient receive steroid injection in the outpatient setting at their orthopedic clinic. Unfortunately as the pt is unable to walk, he will require admission due to unsafe discharge plan. Differential diagnosis: Hip fracture, hip dislocation, avascular necrosis, ER treatment provided: See below Diagnostics interpreted by me: ECG: None Cardiac Monitoring: An order was placed for continuous cardiac monitoring. The monitor shows a rate of 89 with sinus rhythm. Laboratory studies: As stated above and show below. Imaging studies: See below. Past Med/Surg History Problem List (Updated 03/28/24 @ 19:18 by Marcos Graff MD) Osteonecrosis of hip with collapse of femoral head present on x-ray (Acute) COPD (chronic obstructive pulmonary disease) Chronic hypoxemic respiratory failure Sinus pause Diastolic dysfunction Abnormal EKG COPD exacerbation Acute respiratory distress (Acute) Hypertension (Acute) SOB (shortness of breath) (Acute) Wheezing (Acute) Obstructive sleep apnea History of tobacco abuse Obesity Hypercapnia Hypoxia Shortness of breath DVT prophylaxis Mood disorder FOUZIA (generalized anxiety disorder) HTN (hypertension) Lower urinary tract symptoms (LUTS) Acute respiratory failure with hypoxia Surgical History Hx of craniotomy Family History Father Iliac aneurysm Social History Smoking Status: Never smoker Tobacco Type: Cigarettes Hx Alcohol Use: Yes Alcohol type: beer, wine and hard liquor Alcohol Intake Frequency: 2-4 x/Month Hx Substance Use: No Preferred Language: Setswana Communication Ability: Effective Blood Bank Laboratory Technician Required: No Beliefs That Will Affect Care: None marital status: Single Current Living Situation: Other Current Living Situation Comment: Roommate Feels Safe at Home: Yes Assistive Devices: Glasses Allergies Allergies Allergy/AdvReac Type Severity Reaction Status Date / Time bupropion [From Wellbutrin] Allergy Intermediate Hives Verified 03/28/24 16:46 Penicillins Allergy Unknown HAPPENED Verified 03/28/24 16:46 A SMALL CHILD trazodone AdvReac Intermediate RLS Verified 03/28/24 16:46 Home Meds Home Medications Medication Instructions Recorded Confirmed Portable Oxygen 02/10/22 02/10/22 albuterol sulfate 90 mcg/actuation 2 puff inhalation Q6H PRN Cough 02/10/22 03/28/24 aerosol inhaler chlorthalidone 25 mg tablet 25 mg PO DAILY 02/10/22 03/28/24 umeclidinium 62.5 mcg-vilanterol 1 inh inhalation DAILY 02/10/22 03/28/24 25 mcg/actuation powdr for inhalation (Anoro Ellipta) Results & Data (ED) Vital Signs Vital Signs - 24 hr 03/28/24 11:42 03/28/24 14:24 03/28/24 14:27 Temperature 36.5 C Temperature Source Temporal Artery Scan Pulse Rate 65 92 H Pulse Rate [Apical] Pulse Rate from SpO2 Sensor 92 H Pulse Rhythm Pulse Rhythm [Apical] Pulse Strength [Apical] Respiratory Rate 16 18 Respiratory Effort / Characteristics Non-Labored Respiratory Depth Normal Respiratory Pattern Blood Pressure 159/87 H Blood Pressure [Left Arm] Blood Pressure Mean 111 Blood Pressure Mean [Left Arm] Blood Pressure Position [Left Arm] Pulse Oximetry 95 100 97 Oxygen Delivery Method Nasal Cannula Oxygen Flow Rate 2 Sepsis Recent Fever Within 48 Hours No Sepsis New/Unexplained Change in Mental Status No Sepsis Action Taken by Nursing No Action Required 03/28/24 14:27 03/28/24 14:45 03/28/24 14:54 Temperature Temperature Source Pulse Rate 88 90 90 Pulse Rate [Apical] Pulse Rate from SpO2 Sensor 90 91 H Pulse Rhythm Regular Pulse Rhythm [Apical] Pulse Strength [Apical] Respiratory Rate 22 23 23 Respiratory Effort / Characteristics Respiratory Depth Respiratory Pattern Blood Pressure Blood Pressure [Left Arm] Blood Pressure Mean Blood Pressure Mean [Left Arm] Blood Pressure Position [Left Arm] Pulse Oximetry 97 99 100 Oxygen Delivery Method Nasal Cannula Oxygen Flow Rate 2 Sepsis Recent Fever Within 48 Hours Sepsis New/Unexplained Change in Mental Status Sepsis Action Taken by Nursing 03/28/24 15:06 03/28/24 15:15 03/28/24 15:33 Temperature Temperature Source Pulse Rate 92 H 87 Pulse Rate [Apical] Pulse Rate from SpO2 Sensor 92 H Pulse Rhythm Pulse Rhythm [Apical] Pulse Strength [Apical] Respiratory Rate 20 Respiratory Effort / Characteristics Respiratory Depth Respiratory Pattern Blood Pressure 200/120 H 181/127 H Blood Pressure [Left Arm] Blood Pressure Mean 152 145 Blood Pressure Mean [Left Arm] Blood Pressure Position [Left Arm] Pulse Oximetry 100 Oxygen Delivery Method Oxygen Flow Rate Sepsis Recent Fever Within 48 Hours Sepsis New/Unexplained Change in Mental Status Sepsis Action Taken by Nursing 03/28/24 15:36 03/28/24 15:42 03/28/24 15:42 Temperature Temperature Source Pulse Rate 91 H 94 H Pulse Rate [Apical] 92 H Pulse Rate from SpO2 Sensor 90 93 H Pulse Rhythm Pulse Rhythm [Apical] Regular Pulse Strength [Apical] Normal Respiratory Rate 19 24 20 Respiratory Effort / Characteristics Non-Labored Respiratory Depth Normal Respiratory Pattern Regular Blood Pressure Blood Pressure [Left Arm] 187/123 H Blood Pressure Mean Blood Pressure Mean [Left Arm] 144 Blood Pressure Position [Left Arm] Lying Pulse Oximetry 100 100 100 Oxygen Delivery Method Nasal Cannula Oxygen Flow Rate 3 Sepsis Recent Fever Within 48 Hours Sepsis New/Unexplained Change in Mental Status Sepsis Action Taken by Nursing 03/28/24 15:43 03/28/24 16:03 03/28/24 16:42 Temperature Temperature Source Pulse Rate 93 H 85 Pulse Rate [Apical] Pulse Rate from SpO2 Sensor 92 H 85 Pulse Rhythm Pulse Rhythm [Apical] Pulse Strength [Apical] Respiratory Rate 28 H 18 Respiratory Effort / Characteristics Respiratory Depth Respiratory Pattern Blood Pressure 187/123 H Blood Pressure [Left Arm] Blood Pressure Mean 159 Blood Pressure Mean [Left Arm] Blood Pressure Position [Left Arm] Pulse Oximetry 100 100 Oxygen Delivery Method Oxygen Flow Rate Sepsis Recent Fever Within 48 Hours Sepsis New/Unexplained Change in Mental Status Sepsis Action Taken by Nursing 03/28/24 17:00 03/28/24 17:36 03/28/24 17:50 Temperature Temperature Source Pulse Rate 90 87 Pulse Rate [Apical] 90 Pulse Rate from SpO2 Sensor 96 H 87 Pulse Rhythm Pulse Rhythm [Apical] Pulse Strength [Apical] Respiratory Rate 18 17 16 Respiratory Effort / Characteristics Respiratory Depth Respiratory Pattern Blood Pressure 188/133 H Blood Pressure [Left Arm] 181/117 H Blood Pressure Mean 151 Blood Pressure Mean [Left Arm] 138 Blood Pressure Position [Left Arm] Pulse Oximetry 100 100 98 Oxygen Delivery Method Room Air Oxygen Flow Rate Sepsis Recent Fever Within 48 Hours Sepsis New/Unexplained Change in Mental Status Sepsis Action Taken by Nursing 03/28/24 18:03 03/28/24 18:30 Temperature Temperature Source Pulse Rate 90 89 Pulse Rate [Apical] Pulse Rate from SpO2 Sensor 91 H 90 Pulse Rhythm Pulse Rhythm [Apical] Pulse Strength [Apical] Respiratory Rate 23 21 Respiratory Effort / Characteristics Respiratory Depth Respiratory Pattern Blood Pressure 177/106 H Blood Pressure [Left Arm] Blood Pressure Mean 129 Blood Pressure Mean [Left Arm] Blood Pressure Position [Left Arm] Pulse Oximetry 100 100 Oxygen Delivery Method Oxygen Flow Rate Sepsis Recent Fever Within 48 Hours Sepsis New/Unexplained Change in Mental Status Sepsis Action Taken by Nursing Laboratory Data 03/28/24 14:29 03/28/24 14:29 Lab Results 03/28/24 Range/Units 14:29 WBC 5.14 (4.8-10.8) K/ul RBC 5.14 (4.70-6.10) M/uL Hgb 15.5 (14.0-18.0) g/dl Hct 47.6 (42.0-52.0) % MCV 92.6 (80.0-100.0) fL MCH 30.2 (25.0-34.0) pg MCHC 32.6 (32.0-36.0) g/dL RDW Std Deviation 56.8 H (36.4-46.3) fL RDW Coeff of Clem 16.8 H (11.5-14.5) % Plt Count 282 (130-400) K/uL MPV 9.1 L (9.4-12.4) fL Immature Gran % (Auto) 0.8 % Neut % (Auto) 61.0 % Lymph % (Auto) 29.4 % Rosebud % (Auto) 7.8 % Eos % (Auto) 0.4 % Baso % (Auto) 0.6 % Neut # (Auto) 3.14 (1.40-6.50) K/uL Lymph # (Auto) 1.51 (1.20-3.40) K/uL Rosebud # (Auto) 0.40 (0.11-0.59) K/uL Eos # (Auto) 0.02 (0.00-0.50) K/uL Baso # (Auto) 0.03 (0.00-0.20) K/uL Immature Gran # (Auto) 0.04 (0.01-0.20) K/uL PT 10.7 (9.0-12.0) Seconds INR 1.0 (0.9-1.1) APTT 27 (21-31) Seconds PTT Ratio 1.0 Sodium 138 (136-145) mmol/L Potassium 2.9 L (3.5-5.1) mmol/L Chloride 92 L (98-107) mmol/L Carbon Dioxide 35 H (21-32) mmol/L Anion Gap 11 (3-11) BUN 4 L (6-23) mg/dl Creatinine 0.64 (0.6-1.4) mg/dl Est Cr Clr Drug Dosing Not Reportable Est GFR ( Amer) 122.5 ml/min Est GFR (Non-Af Amer) 105.7 ml/min BUN/Creatinine Ratio 6.3 L (10-20) Glucose 91 (70-99(Fasting)) mg/dl Calcium 8.9 (8.6-10.3) mg/dl Magnesium 1.9 (1.7-2.4) mg/dl Total Bilirubin 0.5 (0.2-1.0) mg/dl AST 21 (13-39) U/L ALT 13 (7-52) U/L Alkaline Phosphatase 155 H (34-104) U/L Troponin I High Sens 9.0 (0-20) pg/ml Total Protein 7.6 (6.0-8.3) gm/dl Albumin 4.2 (3.4-5.0) gm/dl Globulin 3.4 (2.5-4.0) gm/dl Albumin/Globulin Ratio 1.2 (0.9-2) Administered Medications Acetaminophen (Acetaminophen 500 Mg Tab) 1,000 mg PO Q8H [facility] Stop: 04/27/24 16:59 Last Admin: 03/28/24 16:58 Dose: 1,000 mg Documented By: NAHUM Hydralazine HCl (Hydralazine Hcl 20 Mg/Ml Vial) 5 mg IV Q6H PRN PRN Reason: systolic bp > 160 Stop: 04/27/24 16:31 Last Admin: 03/28/24 17:48 Dose: 5 mg Documented By: DARIAN Oxycodone HCl (Oxycodone Hcl Ir 5 Mg Tab (Immediate Release)) 5 mg PO Q6H PRN PRN Reason: Severe Pain (Scale 7, 8, 9,10) Stop: 04/11/24 16:26 Last Admin: 03/28/24 16:58 Dose: 5 mg Documented By: NAHUM Discontinued Medications Potassium Chloride (Potassium Chloride Crtab 20 Meq Tabcr) 40 meq PO NOW STA Stop: 03/28/24 16:28 Last Admin: 03/28/24 16:51 Dose: 40 meq Documented By: [facility] Imaging Data Radiologist's Impression: Hip/Pelvis X-Ray 03/28/24 11:46 XR hip ANNA 2v w pelvis CLINICAL HISTORY: Hip trauma, fracture suspected, no prior imaging TECHNIQUE: 2 views of the bilateral hips and single frontal view of the pelvis were obtained. Comparison: None available at the time of this dictation. FINDINGS: There is flattening of the left femoral head compatible with old avascular necrosis. Prominent degenerative changes are seen in the bilateral hip joints. No soft tissue abnormality is seen. IMPRESSION: Degenerative changes are seen in the bilateral hip joints with likely chronic collapse of the left femoral head likely reflecting prior avascular necrosis. ACT 112: Negative or not required by law. Electronically signed by: Mike Medina M.D. 03/28/2024 1:27 PM Chest X-Ray 03/28/24 14:27 XR chest 1V portable CLINICAL HISTORY: Chest pain, nonspecific COMPARISON STUDY: Chest radiograph and lung screening CT August 08, 2021 FINDINGS: No pneumothorax or pleural effusion is present. There is no consolidation to suggest pneumonia and there is no evidence for pulmonary edema. Old right-sided rib fractures are present. IMPRESSION: No acute cardiopulmonary findings. ACT 112: Negative or not required by law. Electronically signed by: Remy Mancia M.D. 03/28/2024 3:21 PM Discharge Plan Visit Data Chief Complaint: Hip Pain Stated Complaint: HIP PAIN ED Provider: Marcos Graff Discharge Problem: Osteonecrosis of hip with collapse of femoral head present on x-ray Forms Stand Alone Forms: My [facility] Prescriptions Prescriptions: No Action (DME) Portable Oxygen Misc See Rx Instructions .ROUTE Rx Instructions: 2LPM at rest, with activity, and at bedtime Anoro Ellipta 62.5-25 mcg/actuation blister with device 1 inh inhalation DAILY Rx Instructions: PER PT "USED FOR 1 MONTH, THEN STOPPED, TOO EXPENSIVE". albuterol sulfate 90 mcg/actuation HFA aerosol inhaler 2 puff inhalation Q6H PRN (Reason: Cough) chlorthalidone 25 mg tablet 25 mg PO DAILY Rx Instructions: PER PT "NEVER PICKED UP FROM PHARMACY Referrals Referrals: Luis Miguel Edgar MD [Primary Care Provider] -
[2024-03-28 15:19] LABS: Alanine Aminotransferase 13 U/L (7-52); Albumin Globulin Ratio 1.2 (0.9-2); Albumin Level 4.2 gm/dl (3.4-5.0); Alkaline Phosphatase 155 U/L (34-104); Anion Gap 11 (3-11); Aspartate Aminotransferase 21 U/L (13-39); BUN Creatinine Ratio 6.3 (10-20); Bilirubin,Total 0.5 mg/dl (0.2-1.0); Blood Urea Nitrogen 4 mg/dl (6-23); Calcium 8.9 mg/dl (8.6-10.3); Carbon Dioxide 35 mmol/L (21-32); Chloride 92 mmol/L (98-107); Est GFR (African American) 122.5 ml/min; Est GFR (Non-African American) 105.7 ml/min; Globulin 3.4 gm/dl (2.5-4.0); Glucose 91 mg/dl (70-99(Fasting)); Potassium 2.9 mmol/L (3.5-5.1); Sodium 138 mmol/L (136-145); Total Protein 7.6 gm/dl (6.0-8.3)
[2024-03-28 15:23] LABS: Partial Thromboplastin Time 27 Seconds (21-31); Prothrombin Time 10.7 Seconds (9.0-12.0)
--- NOTE | 2024-03-28 15:23 | XRay Report ---
XR chest 1V portable CLINICAL HISTORY: Chest pain, nonspecific COMPARISON STUDY: Chest radiograph and lung screening CT August 08, 2021 FINDINGS: No pneumothorax or pleural effusion is present. There is no consolidation to suggest pneumo benitez and there is no evidence for pulmonary edema. Old right-sided rib fractures are present. IMPRESSION: No acute cardiopulmonary findings. ACT 112: Negative or not required by law. Electronically signed by: Remy Mancia M.D. 03/28/2024 3:21 PM
[2024-03-28] MEDS ORDERED: PROMETHAZINE HCL 12.5 MG in SODIUM CHLORIDE 0.9% 50 ML IV PRN (16:27)
[2024-03-28] MEDS: POTASSIUM CHLORIDE CRTAB 20 MEQ TABCR PO STA (16:51)
[2024-03-28] MEDS: oxyCODONE HCL IR 5 MG TAB (IMMEDIATE RELEASE) PO PRN (16:58)
[2024-03-28] MEDS: ACETAMINOPHEN 500 MG TAB PO SCH (16:58)
[2024-03-28 17:01] LABS: Magnesium 1.9 mg/dl (1.7-2.4)
[2024-03-28] MEDS: hydrALAZINE HCL 20 MG/ML VIAL IV PRN (17:48)
[2024-03-28] MEDS ORDERED: ALBUTEROL HFA 8 GM INHALER INH PRN (20:39)
--- NOTE | 2024-03-28 21:43 | History & Physical Report ---
Date of Service March 28, 2024 Assessment & Plan (1) Avascular necrosis of femoral head: Plan: 63-year-old male with history of COPD, chronic hypoxic respite failure, hypertension, mood disorder, presenting with progressive left hip pain times few months. Left hip pain, ambulatory dysfunction Chronic avascular necrosis, left humeral head collapse Pain control with as needed tramadol, oxycodone Ortho consulted-plan for possible steroid injection PT OT evaluation Hypokalemia Replace with oral potassium Monitor closely Hypertension BP elevated, likely secondary to pain On chlorthalidone As needed hydralazine COPD Not in exacerbation Continue inhaler DVT prophylaxis SCDs for now in light of elevated BP Disposition PT OT eval Will likely need acute rehab History of Present Illness Primary Care Provider: Luis Miguel Edgar MD 63-year-old male with history of COPD, chronic hypoxic respite failure, hypertension, mood disorder, presenting with progressive left hip pain times few months. Patient reports that for the past few months, he has been having progressive left hip pain, sharp. He has been progressively worsening, to the point that he has been having difficulty with walking around the house. At the ER, patient presented with elevated blood pressure. Potassium of 2.9. Left hip x-ray showing collapsed left femoral head, chronic avascular necrosis. On exam, patient seen resting in bed, not in distress. Still having some pain over the left hip area despite having pain medication earlier. Denies leg weakness, numbness,. No chest pain, palpitation, dizziness, nausea vomiting Allergies Allergy/AdvReac Type Severity Reaction Status Date / Time bupropion [From Wellbutrin] Allergy Intermediate Hives Verified 03/28/24 16:46 Penicillins Allergy Unknown HAPPENED Verified 03/28/24 16:46 A SMALL CHILD trazodone AdvReac Intermediate RLS Verified 03/28/24 16:46 Home Medications Medication Instructions Recorded Confirmed Type Portable Oxygen 02/10/22 02/10/22 History albuterol sulfate 90 mcg/actuation 2 puff inhalation Q6H PRN Cough 02/10/22 03/28/24 History aerosol inhaler chlorthalidone 25 mg tablet 25 mg PO DAILY 02/10/22 03/28/24 History umeclidinium 62.5 mcg-vilanterol 1 inh inhalation DAILY 02/10/22 03/28/24 History 25 mcg/actuation powdr for inhalation (Anoro Ellipta) Past Med/Surg History Problem List (Updated 03/28/24 @ 21:39 by Tima Laguerre MD) Avascular necrosis of femoral head Osteonecrosis of hip with collapse of femoral head present on x-ray (Acute) COPD (chronic obstructive pulmonary disease) Chronic hypoxemic respiratory failure Sinus pause Diastolic dysfunction Abnormal EKG COPD exacerbation Acute respiratory distress (Acute) Hypertension (Acute) SOB (shortness of breath) (Acute) Wheezing (Acute) Obstructive sleep apnea History of tobacco abuse Obesity Hypercapnia Hypoxia Shortness of breath DVT prophylaxis Mood disorder FOUZIA (generalized anxiety disorder) HTN (hypertension) Lower urinary tract symptoms (LUTS) Acute respiratory failure with hypoxia Surgical History Hx of craniotomy Family History Father Iliac aneurysm Social History Smoking Status: Never smoker Tobacco Type: Cigarettes Hx Alcohol Use: Yes Alcohol type: beer, wine and hard liquor Alcohol Intake Frequency: 2-4 x/Month Hx Substance Use: No Preferred Language: [place] Islander Communication Ability: Effective Fryer Line Helper Required: No Beliefs That Will Affect Care: None marital status: Single Current Living Situation: Other Current Living Situation Comment: Roommate Feels Safe at Home: Yes Assistive Devices: Glasses Review of Systems Review of Systems: all noted and negative except for above Physical Exam Physical Exam: General- oriented x 3, not in distress, speaks in sentences with no effort or accessory muscle use Eyes- anicteric Neck- no JVD Lungs- clear breath sounds bilaterally, no rales/wheezes Heart- normal rate, regular rhythm; no murmurs Abdomen- normal bowel sounds, nondistended, soft, nontender Extremities- no pretibial edema, no calf tenderness Left hip-mild tenderness, no edema/warmth//erythema Neuro- alert, oriented x 3; no gross focal neurologic deficits Skin- warm & dry Results & Data Results & Data Vital Signs (Past 12 Hours) Vital Signs Temp Pulse Pulse Resp BP BP Pulse Ox 03/28/24 15:42 92 H 24 187/123 H 100 03/28/24 15:33 87 03/28/24 14:45 90 23 99 03/28/24 14:27 88 22 97 03/28/24 14:27 97 03/28/24 14:24 92 H 18 100 03/28/24 11:42 36.5 C 65 16 159/87 H 95 O2 Del Method O2 Flow Rate 03/28/24 15:42 Nasal Cannula 3 03/28/24 15:33 03/28/24 14:45 03/28/24 14:27 Nasal Cannula 2 03/28/24 14:27 Nasal Cannula 2 03/28/24 14:24 03/28/24 11:42 all noted and reviewed including below
[2024-03-28] MEDS: UMECLIDINIUM/VILANTEROL 62.5/25MCG 7 PUFFS/INHALER INH SCH (22:29)
[2024-03-28] MEDS: POTASSIUM CHLORIDE CRTAB 20 MEQ TABCR PO SCH (22:29)
[2024-03-29] MEDS: CHLORTHALIDONE 25 MG TAB PO SCH (07:57)
[2024-03-29 07:59] LABS: BUN Creatinine Ratio 12.7 (10-20); Blood Urea Nitrogen 10 mg/dl (6-23); Calcium 8.6 mg/dl (8.6-10.3); Carbon Dioxide 40 mmol/L (21-32); Chloride 95 mmol/L (98-107); Creatinine Clr Calc Pharmacy 94.7 ml/min; Est GFR (African American) 112.3 ml/min; Est GFR (Non-African American) 96.9 ml/min; Glucose 84 mg/dl (70-99(Fasting))
--- NOTE | 2024-03-29 09:27 | Orthopedic Consultation ---
Date of Consultation March 29, 2024 Assessment & Plan (1) Avascular necrosis of femoral head: He has obvious chronic bilateral hip osteonecrosis, left greater than right, likely from heavy alcohol abuse in the past. He has never been evaluated for this so far. This is an obvious chronic issue, and is therefore most appropriately managed in the outpatient clinic setting. I would recommend discharge, and follow-up in orthopedics clinic with one of our hip surgeons (Dr. Townsend, Dr. Motley). They can discuss treatment options with him, such as a trial of intra-articular steroid injections, but he will likely ultimately require a total hip arthroplasty at some point in the future. No acute or thopedic surgical intervention is required. Please call [facility] at [phone] to make an appointment after discharge. Orthopedics will sign off. History of Present Illness Reason for Consultation: "L hip pain, avascular necrosis" Requesting Physician: Dr. Laguerre Attending Physician: Zohaib Zabala MD History of Present Illness Mr. Islas is a 63-year-old male with chronic bilateral hip pain, left greater than right, for at least the past 6 months with gradual progressive worsening. He has never sought evaluation of this hip pain. It progressively worsened to the point where he is now having difficulty walking and getting up the steps in his house, and therefore presented to the emergency room. He does admit to a history of heavy alcohol abuse in his 40s. He states that he was "drunk all day". He states he no longer heavily drinks. He also has a history of COPD with chronic respiratory failure, requiring oxygen supplementation. He did denies any blood disorders such as sickle cell anemia, or chronic oral steroid use. Allergies Allergy/AdvReac Type Severity Reaction Status Date / Time bupropion [From Wellbutrin] Allergy Intermediate Hives Verified 03/28/24 16:46 Penicillins Allergy Unknown HAPPENED Verified 03/28/24 16:46 A SMALL CHILD trazodone AdvReac Intermediate RLS Verified 03/28/24 16:46 Home Medications Medication Instructions Recorded Confirmed Type Portable Oxygen 02/10/22 02/10/22 History albuterol sulfate 90 mcg/actuation 2 puff inhalation Q6H PRN Cough 02/10/22 03/28/24 History aerosol inhaler chlorthalidone 25 mg tablet 25 mg PO DAILY 02/10/22 03/28/24 History umeclidinium 62.5 mcg-vilanterol 1 inh inhalation DAILY 02/10/22 03/28/24 History 25 mcg/actuation powdr for inhalation (Anoro Ellipta) Patient History Surgical History Hx of craniotomy Family History Father Iliac aneurysm Social History Smoking Status: Former smoker Tobacco Type: Cigarettes Second Hand Exposure: No; Do You Dip or Chew Tobacco: No; Tobacco Cessation Education Requested by Patient: No Hx Alcohol Use: Yes Alcohol type: beer, wine and hard liquor Alcohol Intake Frequency: 2-4 x/Month Hx Substance Use: No Preferred Language: Nauruan Communication Ability: Effective Shovel Mechanic Required: No Beliefs That Will Affect Care: None marital status: Single Current Living Situation: Alone Current Living Situation Comment: Roommate Other Information That Helps Us Care for You: No Feels Safe at Home: Yes Safety Concerns: Feels Safe At This Time Assistive Devices: Walker Physical Exam Physical Exam: Examination bilateral lower extremities reveals no gross deformity. Intact toe and ankle dorsiflexion and plantarflexion. Sensation is intact to light touch. Results & Data Vital Signs (Past 12 Hours) Vital Signs Temp Pulse Pulse Pulse Resp BP Pulse Ox 03/29/24 08:45 59 L 03/29/24 08:03 36.7 C 78 16 164/96 H 97 03/29/24 07:58 03/29/24 03:26 36.8 C 84 18 162/106 H 98 03/28/24 23:55 03/28/24 23:55 79 03/28/24 23:55 36.9 C 79 19 160/102 H 97 O2 Del Method O2 Flow Rate 03/29/24 08:45 03/29/24 08:03 Nasal Cannula 3 03/29/24 07:58 Nasal Cannula 3 03/29/24 03:26 Nasal Cannula 3 03/28/24 23:55 Nasal Cannula 3 03/28/24 23:55 03/28/24 23:55 Nasal Cannula 3 Diagnostic Findings Bilateral hip and pelvis x-rays were independently interpreted by me. They show evidence of bilateral femoral head osteonecrosis with collapse. Collapse is certainly more severe on his left hip than the right, with secondary arthritic degeneration. (1) Avascular necrosis of femoral head Laterality: unspecified laterality Qualified Code(s): 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
[2024-03-29] MEDS: amLODIPine BESYLATE 5 MG TAB PO ONE (11:21)
[2024-03-29 12:10] LABS: Potassium 3.8 mmol/L (3.5-5.1)
--- NOTE | 2024-03-29 16:01 | Hospitalist Progress Note ---
Date of Service March 29, 2024 Assessment & Plan (1) Avascular necrosis of femoral head: Plan: 63-year-old male with history of COPD, chronic hypoxic respite failure, hypertension, mood disorder, presenting with progressive left hip pain times few months. 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 Fall precautions PT OT as able Appreciate orthopedics input Needs follow-up with orthopedics on discharge for possible steroid injection versus arthroplasty Pain control Hypokalemia Replace and monitor Hypertension Continue chlorthalidone Added amlodipine Monitor BP Hydralazine as needed COPD Chronic respiratory failure with hypoxia No signs of exacerbation Continue home inhaler DVT Px: Lovenox SQ Disposition PT OT prior to discharge Admission and Anticipated Discharge Date Admission Date: March 28, 2024 Subjective Patient is seen and examined at bedside Reports bilateral hip pain which has been gradually worsening over many months Reports ambulatory dysfunction secondary to hip pain Otherwise feels well today Denies any chest pain, dyspnea, nausea, vomiting, abdominal pain No other complaints Review of Systems Review of Systems: All systems reviewed & are unremarkable except as noted in Subjective Physical Exam Physical Exam: Physical Exam: Vitals signs as noted above General Appearance:Moderately built and nourished, no apparent distress Head: normocephalic, Atraumatic Eyes: normal inspection, EOMI Neck: supple, Trachea midline Respiratory/Chest: Decreased breath sounds, CTA, No accessory muscle use Cardiovascular: S1, S2, No murmur Abdomen/GI:Soft, Non tender, Bowel sounds present Extremities/Musculoskeletal:normal inspection, no edema Neurologic/Psych:AAOX3, grossly no focal neurological deficits Skin: normal color, warm Results & Data Results & Data Vital Signs (Past 12 Hours) Vital Signs Temp Pulse Pulse Resp BP Pulse Ox O2 Del Method 03/29/24 11:34 36.8 C 68 16 177/92 H 96 Room Air 03/29/24 08:45 59 L 03/29/24 08:03 36.7 C 78 16 164/96 H 97 Nasal Cannula 03/29/24 07:58 Nasal Cannula O2 Flow Rate 03/29/24 11:34 03/29/24 08:45 03/29/24 08:03 3 06/01/24 07:58 3 Laboratory Results [facility] 03/29/24 03/29/24 05:32 08:08 Sodium TNP 139 Potassium TNP 3.8 D Chloride 95 L Carbon Dioxide 40 H BUN 10 Creatinine 0.79 Glucose 84 Calcium 8.6 (1) Avascular necrosis of femoral head Laterality: unspecified laterality Qualified Code(s): 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
[2024-03-29] MEDS: traMADol HCL 50 MG TABLET PO PRN (16:03)
[2024-03-29] MEDS: ENOXAPARIN INJ 40 MG/0.4 ML SYR SQ SCH (17:33)
[2024-03-30 06:24] LABS: Hematocrit (blood only) 39.9 % (42.0-52.0); Hemoglobin 13.2 g/dl (14.0-18.0); Mean Corpuscular Hgb Conc 33.1 g/dL (32.0-36.0); Mean Corpuscular Volume 93.7 fL (80.0-100.0); Mean Platelet Volume 9.5 fL (9.4-12.4); Platelet Count 200 K/uL (130-400); RDW Coefficient of Variation 16.8 % (11.5-14.5); RDW Standard Deviation 57.1 fL (36.4-46.3); Red Blood Count 4.26 M/uL (4.70-6.10); White Blood Count 4.27 K/ul (4.8-10.8)
[2024-03-30 07:07] LABS: BUN Creatinine Ratio 15.3 (10-20); Calcium 8.9 mg/dl (8.6-10.3); Creatinine Clr Calc Pharmacy 103.9 ml/min; Est GFR (African American) 116.7 ml/min; Est GFR (Non-African American) 100.7 ml/min; Potassium 3.8 mmol/L (3.5-5.1)
[2024-03-30] MEDS: amLODIPine BESYLATE 5 MG TAB PO SCH (07:33)
[2024-03-30] MEDS: LOSARTAN POTASSIUM 25 MG TAB PO SCH (09:55)
--- NOTE | 2024-03-30 16:07 | Hospitalist Progress Note ---
Date of Service March 30, 2024 Assessment & Plan (1) Avascular necrosis of femoral head: Plan: 63-year-old male with history of COPD, chronic hypoxic respite failure, hypertension, mood disorder, presenting with progressive left hip pain times few months. 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 Fall precautions Appreciate orthopedics input Needs follow-up with orthopedics on discharge for possible steroid injection versus arthroplasty Pain control Needs PT OT eval prior to discharge Hypokalemia Replace and monitor Hypertension Continue chlorthalidone Added amlodipine, losartan Monitor BP Hydralazine as needed COPD Chronic respiratory failure with hypoxia No signs of exacerbation Continue home inhaler DVT Px: Lovenox SQ Disposition PT OT prior to discharge Admission and Anticipated Discharge Date Admission Date: March 28, 2024 Subjective Patient is seen and examined at bedside Continues to have left greater than right hip pain Also reports feeling anxious today PT eval pending Blood pressure elevated today Denies any chest pain, dyspnea, nausea, vomiting, abdominal pain Review of Systems Review of Systems: All systems reviewed & are unremarkable except as noted in Subjective Physical Exam Physical Exam: Physical Exam: Vitals signs as noted above General Appearance:Moderately built and nourished, no apparent distress Head: normocephalic, Atraumatic Eyes: normal inspection, EOMI Neck: supple, Trachea midline Respiratory/Chest: Decreased breath sounds, CTA, No accessory muscle use Cardiovascular: S1, S2, No murmur Abdomen/GI:Soft, Non tender, Bowel sounds present Extremities/Musculoskeletal:normal inspection, no edema Neurologic/Psych:AAOX3, grossly no focal neurological deficits Skin: normal color, warm Results & Data Results & Data Vital Signs (Past 12 Hours) Vital Signs Temp Pulse Pulse Resp BP Pulse Ox O2 Del Method 03/30/24 16:04 36.9 C 71 16 144/97 H 99 Nasal Cannula 03/30/24 14:56 69 03/30/24 12:26 36.8 C 40 L 20 169/104 H 99 Nasal Cannula 03/30/24 10:22 55 L 03/30/24 08:33 36.6 C 47 L 16 171/99 H 97 Nasal Cannula 03/30/24 07:37 Nasal Cannula O2 Flow Rate 03/30/24 16:04 3 03/30/24 14:56 03/30/24 12:26 3 03/30/24 10:22 03/30/24 08:33 3 03/30/24 07:37 3 Laboratory Results Short CBC 03/30/24 Range/Units 05:33 WBC 4.27 L (4.8-10.8) K/ul Hgb 13.2 L (14.0-18.0) g/dl Hct 39.9 L (42.0-52.0) % Plt Count 200 (130-400) K/uL BMP 03/30/24 05:33 Sodium 135 L Potassium 3.8 Chloride 94 L Carbon Dioxide 36 H BUN 11 Creatinine 0.72 Glucose 88 Calcium 8.9 (1) Avascular necrosis of femoral head Laterality: unspecified laterality Qualified Code(s): 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
[2024-03-30] MEDS: LOSARTAN POTASSIUM 25 MG TAB PO ONE (16:39)
[2024-03-31 06:45] LABS: Calcium 8.8 mg/dl (8.6-10.3); Creatinine Clr Calc Pharmacy 92.4 ml/min; Est GFR (African American) 111.2 ml/min; Est GFR (Non-African American) 95.9 ml/min; Magnesium 2.1 mg/dl (1.7-2.4); Potassium 3.7 mmol/L (3.5-5.1)
[2024-03-31] MEDS: POTASSIUM CHLORIDE CRTAB 20 MEQ TABCR PO SCH (07:48)
[2024-03-31] MEDS: LOSARTAN POTASSIUM 50 MG TAB PO SCH (07:48)
--- NOTE | 2024-03-31 17:45 | Hospitalist Progress Note ---
Date of Service March 31, 2024 Assessment & Plan (1) Avascular necrosis of femoral head: Plan: 63-year-old male with history of COPD, chronic hypoxic respite failure, hypertension, mood disorder, presenting with progressive left hip pain times few months. 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 Fall precautions Appreciate orthopedics input Needs follow-up with orthopedics on discharge for possible steroid injection versus arthroplasty Pain control PT OT recommends rehab Case management to help with discharge planning Hypokalemia Replace and monitor Hypertension Continue chlorthalidone Added amlodipine, losartan Monitor BP Hydralazine as needed BP variable COPD Chronic respiratory failure with hypoxia No signs of exacerbation Continue home inhaler DVT Px: Lovenox SQ Disposition Rehab when accepted Admission and Anticipated Discharge Date Admission Date: March 28, 2024 Subjective Patient is seen and examined at bedside No new complaints Waiting for rehab placement Reports having hip pain after having PT evaluation today Denies any chest pain, dyspnea, nausea, vomiting, abdominal pain Review of Systems Review of Systems: All systems reviewed & are unremarkable except as noted in Subjective Physical Exam Physical Exam: Physical Exam: Vitals signs as noted above General Appearance:Moderately built and nourished, no apparent distress Head: normocephalic, Atraumatic Eyes: normal inspection, EOMI Neck: supple, Trachea midline Respiratory/Chest: Decreased breath sounds, CTA, No accessory muscle use Cardiovascular: S1, S2, No murmur Abdomen/GI:Soft, Non tender, Bowel sounds present Extremities/Musculoskeletal:normal inspection, no edema Neurologic/Psych:AAOX3, grossly no focal neurological deficits Skin: normal color, warm Results & Data Results & Data Vital Signs (Past 12 Hours) Vital Signs Temp Pulse Pulse Pulse Resp BP Pulse Ox 03/31/24 16:47 78 03/31/24 16:09 37.0 C 74 18 139/92 98 03/31/24 08:00 36.5 C 56 L 18 174/108 H 99 03/31/24 07:54 03/31/24 07:44 62 O2 Del Method O2 Flow Rate 03/31/24 16:47 03/31/24 16:09 Nasal Cannula 3 03/31/24 08:00 Nasal Cannula 03/31/24 07:54 Nasal Cannula 3 03/31/24 07:44 Laboratory Results BMP 03/31/24 05:41 Sodium 136 Potassium 3.7 Chloride 94 L Carbon Dioxide 36 H BUN 13 Creatinine 0.81 Glucose 90 Calcium 8.8 (1) Avascular necrosis of femoral head Laterality: unspecified laterality Qualified Code(s): 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
[2024-04-01 06:37] LABS: BUN Creatinine Ratio 20.3 (10-20); Calcium 8.9 mg/dl (8.6-10.3); Creatinine Clr Calc Pharmacy 101.1 ml/min; Est GFR (African American) 115.4 ml/min; Est GFR (Non-African American) 99.6 ml/min; Potassium 3.7 mmol/L (3.5-5.1)
--- NOTE | 2024-04-01 16:23 | Hospitalist Progress Note ---
Date of Service April 01, 2024 Assessment & Plan (1) Avascular necrosis of femoral head: Plan: 63-year-old male with history of COPD, chronic hypoxic respite failure, hypertension, mood disorder, presenting with progressive left hip pain times few months. 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 Fall precautions Appreciate orthopedics input Needs follow-up with orthopedics on discharge for possible steroid injection versus arthroplasty Pain control PT OT recommends rehab Case management to help with discharge planning Stable for discharge, waiting for placement Hypokalemia Replace and monitor Hypertension Continue chlorthalidone Added amlodipine, losartan Monitor BP Hydralazine as needed BP much improved COPD Chronic respiratory failure with hypoxia No signs of exacerbation Continue home inhaler DVT Px: Lovenox SQ Disposition Rehab when accepted Admission and Anticipated Discharge Date Admission Date: March 28, 2024 Subjective Patient is seen and examined at bedside Persistent hip pain with any exertion Waiting for rehab placement Denies any chest pain, dyspnea, nausea, vomiting, abdominal pain No other complaints Review of Systems Review of Systems: All systems reviewed & are unremarkable except as noted in Subjective Physical Exam Physical Exam: Physical Exam: Vitals signs as noted above General Appearance:Moderately built and nourished, no apparent distress Head: normocephalic, Atraumatic Eyes: normal inspection, EOMI Neck: supple, Trachea midline Respiratory/Chest: Decreased breath sounds, CTA, No accessory muscle use Cardiovascular: S1, S2, No murmur Abdomen/GI:Soft, Non tender, Bowel sounds present Extremities/Musculoskeletal:normal inspection, no edema Neurologic/Psych:AAOX3, grossly no focal neurological deficits Skin: normal color, warm Results & Data Results & Data Vital Signs (Past 12 Hours) Vital Signs Temp Pulse Pulse Resp BP Pulse Ox O2 Del Method 04/01/24 15:20 37.0 C 67 18 106/69 97 Nasal Cannula 04/01/24 15:11 74 04/01/24 11:36 36.7 C 71 16 114/79 98 Nasal Cannula 04/01/24 08:59 Nasal Cannula 04/01/24 07:39 36.8 C 56 L 16 122/77 100 Nasal Cannula 04/01/24 07:03 61 O2 Flow Rate 04/01/24 15:20 3 04/01/24 15:11 04/01/24 11:36 3 04/01/24 08:59 3 04/01/24 07:39 3 04/01/24 07:03 Laboratory Results [facility] 04/01/24 05:44 Sodium 134 L Potassium 3.7 Chloride 94 L Carbon Dioxide 33 H BUN 15 Creatinine 0.74 Glucose 91 Calcium 8.9 (1) Avascular necrosis of femoral head Laterality: unspecified laterality Qualified Code(s): 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
[2024-04-02] MEDS: LOSARTAN POTASSIUM 25 MG TAB PO SCH (08:12)
[2024-04-02] MEDS: amLODIPine BESYLATE 5 MG TAB PO SCH (08:12)
[2024-04-02 09:04] LABS: Calcium 9.1 mg/dl (8.6-10.3); Creatinine Clr Calc Pharmacy 74.8 ml/min; Est GFR (African American) 93.7 ml/min; Est GFR (Non-African American) 80.9 ml/min; Potassium 4.1 mmol/L (3.5-5.1)
--- NOTE | 2024-04-02 14:13 | Hospitalist Progress Note ---
Date of Service April 02, 2024 Assessment & Plan (1) Avascular necrosis of femoral head: Plan: 63 yo M with history of COPD, chronic hypoxic respite failure, hypertension, mood disorder, presenting with progressive left hip pain times few months. 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 Fall precautions Appreciate orthopedics input Needs follow-up with orthopedics on discharge for possible steroid injection versus arthroplasty Pain control PT OT recommends rehab Case management to help with discharge planning Stable for discharge, waiting for placement Hypokalemia Replace and monitor Hypertension Continue chlorthalidone Added amlodipine, losartan Monitor BP Hydralazine as needed BP much improved COPD Chronic respiratory failure with hypoxia No signs of exacerbation Continue home inhaler DVT Px: Lovenox SQ Disposition Rehab when accepted Admission and Anticipated Discharge Date Admission Date: March 28, 2024 Subjective Patient seen in follow up of hip pain Persistent hip pain with any exertion Waiting for rehab placement Denies any chest pain, dyspnea, nausea, vomiting, abdominal pain No other complaints Review of Systems Review of Systems: All systems reviewed & are unremarkable except as noted in Subjective Physical Exam Physical Exam: General Appearance: Moderately built and nourished M in NAD, on suppl. O2 (at baseline) Head: NC/AT Eyes: normal inspection, EOMI Neck: supple Respiratory/Chest: Decreased breath sounds, CTA, No accessory muscle use Cardiovascular: S1, S2, No murmur Abdomen/GI:Soft, Non tender, Bowel sounds present Extremities/Musculoskeletal:normal inspection, no edema Neurologic/Psych:AAOX3, answers appropriately, no facial asymmetry, moves extremities Skin: normal color, warm Results & Data Results & Data Vital Signs (Past 12 Hours) Vital Signs Temp Pulse Pulse Resp BP Pulse Ox O2 Del Method 04/02/24 11:24 36.8 C 64 18 107/68 98 Nasal Cannula 04/02/24 08:00 Room Air 04/02/24 07:31 36.7 C 57 L 16 119/79 94 Nasal Cannula 04/02/24 07:00 59 L 04/02/24 04:08 36.5 C 54 L 18 125/85 98 Nasal Cannula O2 Flow Rate 04/02/24 11:24 3 04/02/24 08:00 04/02/24 07:31 3 04/02/24 07:00 04/02/24 04:08 3 Laboratory Results 04/02/24 Range/Units 08:16 Sodium 133 L (136-145) mmol/L Potassium 4.1 (3.5-5.1) mmol/L Chloride 92 L (98-107) mmol/L Carbon Dioxide 35 H (21-32) mmol/L Anion Gap 6 (3-11) BUN 21 (6-23) mg/dl Creatinine 1.00 (0.6-1.4) mg/dl Est Cr Clr Drug Dosing 74.8 ml/min Est GFR ( Amer) 93.7 ml/min Est GFR (Non-Af Amer) 80.9 ml/min BUN/Creatinine Ratio 21.0 H (10-20) Glucose 94 (70-99(Fasting)) mg/dl Calcium 9.1 (8.6-10.3) mg/dl Medications Administered Current Inpatient Medications Acetaminophen (Acetaminophen 500 Mg Tab) 1,000 mg PO Q8H [facility] Stop: 04/27/24 16:59 Last Admin: 04/02/24 08:15 Dose: 1,000 mg Albuterol (Albuterol Hfa 8 Gm Inhaler) 2 puffs INH Q6H PRN PRN Reason: sob/wheezing Stop: 04/27/24 20:38 Amlodipine Besylate (Amlodipine Besylate 5 Mg Tab) 2.5 mg PO QAM [facility] Stop: 05/02/24 08:59 Last Admin: 04/02/24 08:12 Dose: 2.5 mg Chlorthalidone (Chlorthalidone 25 Mg Tab) 25 mg PO DAILY [facility] Stop: 04/28/24 08:59 Last Admin: 04/02/24 08:12 Dose: 25 mg Enoxaparin Sodium (Enoxaparin Inj 40 Mg/0.4 Ml Syr) 40 mg SQ Q24H [facility] Stop: 04/28/24 15:59 Last Admin: 04/01/24 16:38 Dose: 40 mg Hydralazine HCl (Hydralazine Hcl 20 Mg/Ml Vial) 5 mg IV Q6H PRN PRN Reason: systolic bp > 160 Stop: 04/27/24 16:31 Last Admin: 03/28/24 17:48 Dose: 5 mg Promethazine HCl 12.5 mg/ (Sodium Chloride) 50.5 mls @ 204 mls/hr IV Q6H PRN PRN Reason: Nausea And Vomiting Stop: 04/27/24 16:26 Losartan Potassium (Losartan Potassium 25 Mg Tab) 25 mg PO QAM [facility] Stop: 05/02/24 08:59 Last Admin: 04/02/24 08:12 Dose: 25 mg Oxycodone HCl (Oxycodone Hcl Ir 5 Mg Tab (Immediate Release)) 5 mg PO Q6H PRN PRN Reason: Severe Pain (Scale 7, 8, 9,10) Stop: 04/11/24 16:26 Last Admin: 04/02/24 08:11 Dose: 5 mg Potassium Chloride (Potassium Chloride Crtab 20 Meq Tabcr) 20 meq PO DAILY [facility] Stop: 04/30/24 08:59 Last Admin: 04/02/24 08:12 Dose: 20 meq Tramadol HCl (Tramadol Hcl 50 Mg Tablet) 50 mg PO Q6H PRN PRN Reason: MODERATE Pain (4,5,6) & Pre PT Stop: 04/27/24 16:26 Last Admin: 04/01/24 21:20 Dose: 50 mg Umeclidinium/Vilanterol (Umeclidinium/Vilanterol 62.5/25mcg 7 Puffs/Inhaler) 1 puffs INH DAILY [facility] Stop: 04/27/24 20:59 Last Admin: 04/02/24 08:12 Dose: 1 puffs (1) Avascular necrosis of femoral head Laterality: unspecified laterality Qualified Code(s): 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
[2024-04-03 06:29] LABS: BUN Creatinine Ratio 22.7 (10-20); Calcium 9.3 mg/dl (8.6-10.3); Creatinine Clr Calc Pharmacy 77.1 ml/min; Est GFR (African American) 97.3 ml/min; Est GFR (Non-African American) 83.9 ml/min; Magnesium 2.6 mg/dl (1.7-2.4); Phosphorus 4.4 mg/dl (2.5-4.9); Potassium 4.5 mmol/L (3.5-5.1)
[2024-04-03] MEDS: LOSARTAN POTASSIUM 25 MG TAB PO SCH (08:00)
--- NOTE | 2024-04-03 17:39 | Hospitalist Progress Note ---
Date of Service April 03, 2024 Assessment & Plan (1) Avascular necrosis of femoral head: Plan: 63 yo M with history of COPD, chronic hypoxic respite failure, hypertension, mood disorder, presenting with progressive left hip pain times few months. 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 Fall precautions Appreciate orthopedics input Needs follow-up with orthopedics on discharge for possible steroid injection versus arthroplasty Pain control PT OT recommends rehab Case management to help with discharge planning Stable for discharge, waiting for placement Hypokalemia Replace and monitor Hypertension Continue chlorthalidone Added amlodipine, losartan Monitor BP Hydralazine as needed BP much improved COPD Chronic respiratory failure with hypoxia No signs of exacerbation Continue home inhaler DVT Px: Lovenox SQ Disposition Rehab when accepted Admission and Anticipated Discharge Date Admission Date: March 28, 2024 Subjective Patient seen in follow up of hip pain Persistent hip pain with any exertion Waiting for rehab placement Denies any chest pain, dyspnea, nausea, vomiting, abdominal pain No other complaints Discussed w/ CM - plan for [facility] Physical Exam Physical Exam: General Appearance: Moderately built and nourished M in NAD, on suppl. O2 (at baseline) Head: NC/AT Eyes: normal inspection, EOMI Neck: supple Respiratory/Chest: Decreased breath sounds, CTA, No accessory muscle use Cardiovascular: S1, S2, No murmur Abdomen/GI:Soft, Non tender, Bowel sounds present Extremities/Musculoskeletal:normal inspection, no edema Neurologic/Psych:AAOX3, answers appropriately, no facial asymmetry, moves extremities Skin: normal color, warm Results & Data Results & Data Vital Signs (Past 12 Hours) Vital Signs Temp Pulse Pulse Resp BP Pulse Ox O2 Del Method 04/03/24 15:31 36.8 C 81 18 126/86 97 Nasal Cannula 04/03/24 15:00 84 04/03/24 12:23 36.6 C 65 18 126/76 99 Nasal Cannula 04/03/24 08:10 36.5 C 63 18 125/79 98 Nasal Cannula 04/03/24 08:00 Room Air 04/03/24 07:00 51 L O2 Flow Rate 04/03/24 15:31 3 04/03/24 15:00 04/03/24 12:23 3 04/03/24 08:10 3 04/03/24 08:00 04/03/24 07:00 Laboratory Results 04/03/24 Range/Units 05:22 Sodium 132 L (136-145) mmol/L Potassium 4.5 (3.5-5.1) mmol/L Chloride 92 L (98-107) mmol/L Carbon Dioxide 35 H (21-32) mmol/L Anion Gap 5 (3-11) BUN 22 (6-23) mg/dl Creatinine 0.97 (0.6-1.4) mg/dl Est Cr Clr Drug Dosing 77.1 ml/min Est GFR ( Amer) 97.3 ml/min Est GFR (Non-Af Amer) 83.9 ml/min BUN/Creatinine Ratio 22.7 H (10-20) Glucose 94 (70-99(Fasting)) mg/dl Calcium 9.3 (8.6-10.3) mg/dl Phosphorus 4.4 (2.5-4.9) mg/dl Magnesium 2.6 H (1.7-2.4) mg/dl Medications Administered Current Inpatient Medications Acetaminophen (Acetaminophen 500 Mg Tab) 1,000 mg PO Q8H [facility] Stop: 04/27/24 16:59 Last Admin: 04/03/24 15:58 Dose: 1,000 mg Albuterol (Albuterol Hfa 8 Gm Inhaler) 2 puffs INH Q6H PRN PRN Reason: sob/wheezing Stop: 04/27/24 20:38 Amlodipine Besylate (Amlodipine Besylate 5 Mg Tab) 2.5 mg PO QAM [facility] Stop: 05/02/24 08:59 Last Admin: 04/03/24 08:00 Dose: 2.5 mg Chlorthalidone (Chlorthalidone 25 Mg Tab) 25 mg PO DAILY [facility] Stop: 04/28/24 08:59 Last Admin: 04/03/24 08:00 Dose: 25 mg Enoxaparin Sodium (Enoxaparin Inj 40 Mg/0.4 Ml Syr) 40 mg SQ Q24H [facility] Stop: 04/28/24 15:59 Last Admin: 04/03/24 15:58 Dose: 40 mg Hydralazine HCl (Hydralazine Hcl 20 Mg/Ml Vial) 5 mg IV Q6H PRN PRN Reason: systolic bp > 160 Stop: 04/27/24 16:31 Last Admin: 03/28/24 17:48 Dose: 5 mg Promethazine HCl 12.5 mg/ (Sodium Chloride) 50.5 mls @ 204 mls/hr IV Q6H PRN PRN Reason: Nausea And Vomiting Stop: 04/27/24 16:26 Losartan Potassium (Losartan Potassium 25 Mg Tab) 12.5 mg PO QAM [facility] Stop: 05/03/24 08:59 Last Admin: 04/03/24 08:00 Dose: 12.5 mg Oxycodone HCl (Oxycodone Hcl Ir 5 Mg Tab (Immediate Release)) 5 mg PO Q6H PRN PRN Reason: Severe Pain (Scale 7, 8, 9,10) Stop: 04/11/24 16:26 Last Admin: 04/03/24 13:41 Dose: 5 mg Potassium Chloride (Potassium Chloride Crtab 20 Meq Tabcr) 20 meq PO DAILY [facility] Stop: 04/30/24 08:59 Last Admin: 04/03/24 08:01 Dose: 20 meq Tramadol HCl (Tramadol Hcl 50 Mg Tablet) 50 mg PO Q6H PRN PRN Reason: MODERATE Pain (4,5,6) & Pre PT Stop: 04/27/24 16:26 Last Admin: 04/03/24 15:59 Dose: 50 mg Umeclidinium/Vilanterol (Umeclidinium/Vilanterol 62.5/25mcg 7 Puffs/Inhaler) 1 puffs INH DAILY [facility] Stop: 04/27/24 20:59 Last Admin: 04/03/24 07:59 Dose: 1 puffs (1) Avascular necrosis of femoral head Laterality: unspecified laterality Qualified Code(s): 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
[2024-04-04] MEDS: hydrOXYzine HCl 10 MG TAB PO ONE (11:50)
--- NOTE | 2024-04-04 15:06 | Hospitalist Progress Note ---
Date of Service April 04, 2024 Assessment & Plan (1) Avascular necrosis of femoral head: Plan: 63 yo M with history of COPD, chronic hypoxic respite failure, hypertension, mood disorder, presenting with progressive left hip pain times few months. 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 Fall precautions Appreciate orthopedics input Needs follow-up with orthopedics on discharge for possible steroid injection versus arthroplasty Pain control PT OT recommends rehab Case management to help with discharge planning Stable for discharge, waiting for placement Hypokalemia Replace and monitor Hypertension Continue chlorthalidone Added amlodipine, losartan Monitor BP Hydralazine as needed BP much improved COPD Chronic respiratory failure with hypoxia No signs of exacerbation Continue home inhaler DVT Px: Lovenox SQ Disposition Rehab when accepted Admission and Anticipated Discharge Date Admission Date: March 28, 2024 Subjective Patient seen in follow up of hip pain Persistent hip pain with any exertion Waiting for rehab placement Denies any chest pain, dyspnea, nausea, vomiting, abdominal pain No other complaints Discussed w/ CM - plan for [facility] Review of Systems Review of Systems: All systems reviewed & are unremarkable except as noted in Subjective Physical Exam Physical Exam: General Appearance: Moderately built and nourished M in NAD, on suppl. O2 (at baseline) Head: NC/AT Eyes: normal inspection, EOMI Neck: supple Respiratory/Chest: Decreased breath sounds, CTA, No accessory muscle use Cardiovascular: S1, S2, No murmur Abdomen/GI:Soft, Non tender, Bowel sounds present Extremities/Musculoskeletal:normal inspection, no edema Neurologic/Psych:AAOX3, answers appropriately, no facial asymmetry, moves extremities Skin: normal color, warm Results & Data Results & Data Vital Signs (Past 12 Hours) Vital Signs Temp Pulse Pulse Resp BP Pulse Ox O2 Del Method 04/04/24 11:24 36.6 C 64 18 123/81 98 Nasal Cannula 04/04/24 08:03 36.8 C 60 16 123/81 99 Nasal Cannula 04/04/24 07:47 Nasal Cannula 04/04/24 07:17 56 L O2 Flow Rate 04/04/24 11:24 3 04/04/24 08:03 3 04/04/24 07:47 3 04/04/24 07:17 Medications Administered Current Inpatient Medications Acetaminophen (Acetaminophen 500 Mg Tab) 1,000 mg PO Q8H [facility] Stop: 04/27/24 16:59 Last Admin: 04/04/24 08:07 Dose: 1,000 mg Albuterol (Albuterol Hfa 8 Gm Inhaler) 2 puffs INH Q6H PRN PRN Reason: sob/wheezing Stop: 04/27/24 20:38 Amlodipine Besylate (Amlodipine Besylate 5 Mg Tab) 2.5 mg PO QAM [facility] Stop: 05/02/24 08:59 Last Admin: 04/04/24 08:05 Dose: 2.5 mg Chlorthalidone (Chlorthalidone 25 Mg Tab) 25 mg PO DAILY [facility] Stop: 04/28/24 08:59 Last Admin: 04/04/24 08:05 Dose: 25 mg Enoxaparin Sodium (Enoxaparin Inj 40 Mg/0.4 Ml Syr) 40 mg SQ Q24H [facility] Stop: 04/28/24 15:59 Last Admin: 04/03/24 15:58 Dose: 40 mg Hydralazine HCl (Hydralazine Hcl 20 Mg/Ml Vial) 5 mg IV Q6H PRN PRN Reason: systolic bp > 160 Stop: 04/27/24 16:31 Last Admin: 03/28/24 17:48 Dose: 5 mg Promethazine HCl 12.5 mg/ (Sodium Chloride) 50.5 mls @ 204 mls/hr IV Q6H PRN PRN Reason: Nausea And Vomiting Stop: 04/27/24 16:26 Losartan Potassium (Losartan Potassium 25 Mg Tab) 12.5 mg PO QAM [facility] Stop: 05/03/24 08:59 Last Admin: 04/04/24 08:05 Dose: 12.5 mg Oxycodone HCl (Oxycodone Hcl Ir 5 Mg Tab (Immediate Release)) 5 mg PO Q6H PRN PRN Reason: Severe Pain (Scale 7, 8, 9,10) Stop: 04/11/24 16:26 Last Admin: 04/04/24 09:35 Dose: 5 mg Potassium Chloride (Potassium Chloride Crtab 20 Meq Tabcr) 20 meq PO DAILY [facility] Stop: 04/30/24 08:59 Last Admin: 04/04/24 08:05 Dose: 20 meq Tramadol HCl (Tramadol Hcl 50 Mg Tablet) 50 mg PO Q6H PRN PRN Reason: MODERATE Pain (4,5,6) & Pre PT Stop: 04/27/24 16:26 Last Admin: 04/03/24 15:59 Dose: 50 mg Umeclidinium/Vilanterol (Umeclidinium/Vilanterol 62.5/25mcg 7 Puffs/Inhaler) 1 puffs INH DAILY [facility] Stop: 04/27/24 20:59 Last Admin: 04/04/24 09:33 Dose: 1 puffs (1) Avascular necrosis of femoral head Laterality: unspecified laterality Qualified Code(s): 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
--- NOTE | 2024-04-04 21:57 | Electrocardiogram Report ---
Test Reason : Blood Pressure : / mmHG Vent. Rate : 067 BPM Atrial Rate : 067 BPM P-R Int : 130 ms QRS Dur : 094 ms QT Int : 412 ms P-R-T Axes : 056 044 058 degrees QTc Int : 435 ms Normal sinus rhythm Normal ECG When compared with ECG of 28-MAR-2024 14:18, No significant change Confirmed by Gavino Ramirez ([id number]) on 04/04/2024 9:57:05 PM Referred By: REFERRED SELF Confirmed By:Gavino Ramirez
[2024-04-05 08:24] LABS: BUN Creatinine Ratio 24.4 (10-20); Calcium 9.7 mg/dl (8.6-10.3); Est GFR (African American) 110.6 ml/min; Est GFR (Non-African American) 95.4 ml/min; Magnesium 2.4 mg/dl (1.7-2.4); Phosphorus 3.9 mg/dl (2.5-4.9)
--- NOTE | 2024-04-05 16:10 | Hospitalist Progress Note ---
Date of Service April 05, 2024 Assessment & Plan (1) Avascular necrosis of femoral head: Plan: 63 yo M with history of COPD, chronic hypoxic respite failure, hypertension, mood disorder, presenting with progressive left hip pain times few months. 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 Fall precautions Appreciate orthopedics input Needs follow-up with orthopedics on discharge for possible steroid injection versus arthroplasty Pain control PT OT recommends rehab Case management to help with discharge planning Stable for discharge, waiting for placement Hypokalemia Replace and monitor Hypertension Continue chlorthalidone Added amlodipine, losartan Monitor BP Hydralazine as needed BP much improved COPD Chronic respiratory failure with hypoxia No signs of exacerbation Continue home inhaler DVT Px: Lovenox SQ Disposition Rehab when accepted Admission and Anticipated Discharge Date Admission Date: March 28, 2024 Subjective Patient seen in follow up of hip pain Persistent hip pain with any exertion Waiting for rehab placement Denies any chest pain, dyspnea, nausea, vomiting, abdominal pain No other complaints Discussed w/ CM - plan for [facility]- but unable to accept over the weekend Review of Systems Review of Systems: All systems reviewed & are unremarkable except as noted in Subjective Physical Exam Physical Exam: General Appearance: Moderately built and nourished M in NAD, on suppl. O2 (at baseline) Head: NC/AT Eyes: normal inspection, EOMI Neck: supple Respiratory/Chest: Decreased breath sounds, CTA, No accessory muscle use Cardiovascular: S1, S2, No murmur Abdomen/GI:Soft, Non tender, Bowel sounds present Extremities/Musculoskeletal:normal inspection, no edema Neurologic/Psych:AAOX3, answers appropriately, no facial asymmetry, moves extremities Skin: normal color, warm Results & Data Results & Data Vital Signs (Past 12 Hours) Vital Signs Temp Pulse Pulse Resp BP Pulse Ox O2 Del Method 04/05/24 15:44 36.6 C 62 20 113/71 94 Nasal Cannula 04/05/24 15:24 71 04/05/24 11:48 36.7 C 68 20 112/75 97 Room Air 04/05/24 09:44 Nasal Cannula 04/05/24 08:30 36.8 C 57 L 20 133/82 98 Nasal Cannula 04/05/24 07:13 58 L O2 Flow Rate 04/05/24 15:44 3 04/05/24 15:24 04/05/24 11:48 04/05/24 09:44 3 04/05/24 08:30 3 04/05/24 07:13 Laboratory Results 04/05/24 Range/Units 06:48 Sodium 132 L (136-145) mmol/L Potassium 4.0 (3.5-5.1) mmol/L Chloride 92 L (98-107) mmol/L Carbon Dioxide 32 (21-32) mmol/L Anion Gap 8 (3-11) BUN 20 (6-23) mg/dl Creatinine 0.82 (0.6-1.4) mg/dl Est Cr Clr Drug Dosing 91.0 ml/min Est GFR ( Amer) 110.6 ml/min Est GFR (Non-Af Amer) 95.4 ml/min BUN/Creatinine Ratio 24.4 H (10-20) Glucose 89 (70-99(Fasting)) mg/dl Calcium 9.7 (8.6-10.3) mg/dl Phosphorus 3.9 (2.5-4.9) mg/dl Magnesium 2.4 (1.7-2.4) mg/dl Medications Administered Current Inpatient Medications Acetaminophen (Acetaminophen 500 Mg Tab) 1,000 mg PO Q8H [facility] Stop: 04/27/24 16:59 Last Admin: 04/05/24 09:12 Dose: 1,000 mg Albuterol (Albuterol Hfa 8 Gm Inhaler) 2 puffs INH Q6H PRN PRN Reason: sob/wheezing Stop: 04/27/24 20:38 Amlodipine Besylate (Amlodipine Besylate 5 Mg Tab) 2.5 mg PO QAM [facility] Stop: 05/02/24 08:59 Last Admin: 04/05/24 09:12 Dose: 2.5 mg Chlorthalidone (Chlorthalidone 25 Mg Tab) 25 mg PO DAILY [facility] Stop: 04/28/24 08:59 Last Admin: 04/05/24 08:40 Dose: 25 mg Enoxaparin Sodium (Enoxaparin Inj 40 Mg/0.4 Ml Syr) 40 mg SQ Q24H [facility] Stop: 04/28/24 15:59 Last Admin: 04/04/24 15:35 Dose: 40 mg Hydralazine HCl (Hydralazine Hcl 20 Mg/Ml Vial) 5 mg IV Q6H PRN PRN Reason: systolic bp > 160 Stop: 04/27/24 16:31 Last Admin: 03/28/24 17:48 Dose: 5 mg Promethazine HCl 12.5 mg/ (Sodium Chloride) 50.5 mls @ 204 mls/hr IV Q6H PRN PRN Reason: Nausea And Vomiting Stop: 04/27/24 16:26 Losartan Potassium (Losartan Potassium 25 Mg Tab) 12.5 mg PO QAM [facility] Stop: 05/03/24 08:59 Last Admin: 04/05/24 08:40 Dose: 12.5 mg Oxycodone HCl (Oxycodone Hcl Ir 5 Mg Tab (Immediate Release)) 5 mg PO Q6H PRN PRN Reason: Severe Pain (Scale 7, 8, 9,10) Stop: 04/11/24 16:26 Last Admin: 04/04/24 09:35 Dose: 5 mg Potassium Chloride (Potassium Chloride Crtab 20 Meq Tabcr) 20 meq PO DAILY [facility] Stop: 04/30/24 08:59 Last Admin: 04/05/24 08:40 Dose: 20 meq Tramadol HCl (Tramadol Hcl 50 Mg Tablet) 50 mg PO Q6H PRN PRN Reason: MODERATE Pain (4,5,6) & Pre PT Stop: 04/27/24 16:26 Last Admin: 04/05/24 09:14 Dose: 50 mg Umeclidinium/Vilanterol (Umeclidinium/Vilanterol 62.5/25mcg 7 Puffs/Inhaler) 1 puffs INH DAILY [facility] Stop: 04/27/24 20:59 Last Admin: 04/05/24 08:39 Dose: 1 puffs (1) Avascular necrosis of femoral head Laterality: unspecified laterality Qualified Code(s): 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
[2024-04-06] MEDS: LORazepam 0.5 MG TAB PO PRN (03:02)
--- NOTE | 2024-04-06 10:09 | Hospitalist Progress Note ---
Date of Service April 06, 2024 Assessment & Plan (1) Avascular necrosis of femoral head: Plan: 63 yo M with history of COPD, chronic hypoxic respite failure, hypertension, mood disorder, presenting with progressive left hip pain times few months. 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 Fall precautions Appreciate orthopedics input Needs follow-up with orthopedics on discharge for possible steroid injection versus arthroplasty Pain control PT OT recommends rehab Case management to help with discharge planning Stable for discharge, waiting for placement Hypokalemia Replace and monitor Hypertension Continue chlorthalidone Added amlodipine, losartan Monitor BP Hydralazine as needed BP much improved COPD Chronic respiratory failure with hypoxia No signs of exacerbation Continue home inhaler DVT Px: Lovenox SQ Disposition Rehab when accepted Admission and Anticipated Discharge Date Admission Date: March 28, 2024 Subjective Patient seen in follow up of hip pain Persistent hip pain with any exertion Waiting for rehab placement Denies any chest pain, dyspnea, nausea, vomiting, abdominal pain No other complaints Discussed w/ CM - plan for [facility]- but unable to accept over the weekend Review of Systems Review of Systems: All systems reviewed & are unremarkable except as noted in Subjective Physical Exam Physical Exam: General Appearance: Moderately built and nourished M in NAD, on suppl. O2 (at baseline) Head: NC/AT Eyes: normal inspection, EOMI Neck: supple Respiratory/Chest: Decreased breath sounds, CTA, No accessory muscle use Cardiovascular: S1, S2, No murmur Abdomen/GI:Soft, Non tender, Bowel sounds present Extremities/Musculoskeletal:normal inspection, no edema Neurologic/Psych:AAOX3, answers appropriately, no facial asymmetry, moves extremities Skin: normal color, warm Results & Data Results & Data Vital Signs (Past 12 Hours) Vital Signs Temp Pulse Pulse Resp BP Pulse Ox O2 Del Method 04/06/24 08:05 Nasal Cannula 04/06/24 07:21 36.5 C 64 20 136/88 93 Room Air 04/06/24 07:13 55 L 04/06/24 03:06 36.9 C 16 142/88 H 97 Nasal Cannula 04/05/24 23:01 36.7 C 61 18 131/86 97 Nasal Cannula 04/05/24 22:09 72 O2 Flow Rate 04/06/24 08:05 3 04/06/24 07:21 04/06/24 07:13 04/06/24 03:06 3 04/05/24 23:01 3 04/05/24 22:09 Medications Administered Current Inpatient Medications Acetaminophen (Acetaminophen 500 Mg Tab) 1,000 mg PO Q8H [facility] Stop: 04/27/24 16:59 Last Admin: 04/06/24 08:02 Dose: 1,000 mg Albuterol (Albuterol Hfa 8 Gm Inhaler) 2 puffs INH Q6H PRN PRN Reason: sob/wheezing Stop: 04/27/24 20:38 Amlodipine Besylate (Amlodipine Besylate 5 Mg Tab) 2.5 mg PO QAM [facility] Stop: 05/02/24 08:59 Last Admin: 04/06/24 08:03 Dose: 2.5 mg Chlorthalidone (Chlorthalidone 25 Mg Tab) 25 mg PO DAILY [facility] Stop: 04/28/24 08:59 Last Admin: 04/06/24 08:03 Dose: 25 mg Enoxaparin Sodium (Enoxaparin Inj 40 Mg/0.4 Ml Syr) 40 mg SQ Q24H [facility] Stop: 04/28/24 15:59 Last Admin: 04/05/24 17:02 Dose: 40 mg Hydralazine HCl (Hydralazine Hcl 20 Mg/Ml Vial) 5 mg IV Q6H PRN PRN Reason: systolic bp > 160 Stop: 04/27/24 16:31 Last Admin: 03/28/24 17:48 Dose: 5 mg Promethazine HCl 12.5 mg/ (Sodium Chloride) 50.5 mls @ 204 mls/hr IV Q6H PRN PRN Reason: Nausea And Vomiting Stop: 04/27/24 16:26 Lorazepam (Lorazepam 0.5 Mg Tab) 0.5 mg PO HS PRN PRN Reason: Anxiety Stop: 05/06/24 02:43 Last Admin: 04/06/24 03:02 Dose: 0.5 mg Losartan Potassium (Losartan Potassium 25 Mg Tab) 12.5 mg PO QAM [facility] Stop: 05/03/24 08:59 Last Admin: 04/06/24 08:03 Dose: 12.5 mg Oxycodone HCl (Oxycodone Hcl Ir 5 Mg Tab (Immediate Release)) 5 mg PO Q6H PRN PRN Reason: Severe Pain (Scale 7, 8, 9,10) Stop: 04/11/24 16:26 Last Admin: 04/05/24 21:40 Dose: 5 mg Potassium Chloride (Potassium Chloride Crtab 20 Meq Tabcr) 20 meq PO DAILY [facility] Stop: 04/30/24 08:59 Last Admin: 04/06/24 08:03 Dose: 20 meq Tramadol HCl (Tramadol Hcl 50 Mg Tablet) 50 mg PO Q6H PRN PRN Reason: MODERATE Pain (4,5,6) & Pre PT Stop: 04/27/24 16:26 Last Admin: 04/05/24 09:14 Dose: 50 mg Umeclidinium/Vilanterol (Umeclidinium/Vilanterol 62.5/25mcg 7 Puffs/Inhaler) 1 puffs INH DAILY [facility] Stop: 04/27/24 20:59 Last Admin: 04/06/24 08:02 Dose: 1 puffs (1) Avascular necrosis of femoral head Laterality: unspecified laterality Qualified Code(s): 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
[2024-04-07 07:42] VITALS: BP 127/83; RESP 20; TEMP 97.9; O2SAT 100
--- NOTE | 2024-04-07 09:52 | Discharge Summary ---
Date of Service April 07, 2024 Admission HPI Per Admitting Provider 63-year-old male with history of COPD, chronic hypoxic respite failure, hypertension, mood disorder, presenting with progressive left hip pain times few months. Patient reports that for the past few months, he has been having progressive left hip pain, sharp. He has been progressively worsening, to the point that he has been having difficulty with walking around the house. At the ER, patient presented with elevated blood pressure. Potassium of 2.9. Left hip x-ray showing collapsed left femoral head, chronic avascular necrosis. On exam, patient seen resting in bed, not in distress. Still having some pain over the left hip area despite having pain medication earlier. Denies leg weakness, numbness,. No chest pain, palpitation, dizziness, nausea vomiting Admission Exam Per Admitting Provider General- oriented x 3, not in distress, speaks in sentences with no effort or accessory muscle use Eyes- anicteric Neck- no JVD Lungs- clear breath sounds bilaterally, no rales/wheezes Heart- normal rate, regular rhythm; no murmurs Abdomen- normal bowel sounds, nondistended, soft, nontender Extremities- no pretibial edema, no calf tenderness Left hip-mild tenderness, no edema/warmth//erythema Neuro- alert, oriented x 3; no gross focal neurologic deficits Skin- warm & dry Principal Diagnosis Avascular necrosis of femoral head 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 O2 (at baseline) Head: NC/AT Eyes: normal inspection, EOMI Neck: supple Respiratory/Chest: Decreased breath sounds, CTA, No accessory muscle use Cardiovascular: S1, S2, No murmur Abdomen/GI:Soft, Non tender, Bowel sounds present Extremities/Musculoskeletal:normal inspection, no edema Neurologic/Psych:AAOX3, answers appropriately, no facial asymmetry, moves extremities Skin: normal color, warm Discharge Data Allergies Allergy/AdvReac Type Severity Reaction Status Date / Time bupropion [From Wellbutrin] Allergy Intermediate Hives Verified 03/28/24 16:46 Penicillins Allergy Unknown HAPPENED Verified 03/28/24 16:46 A SMALL CHILD trazodone AdvReac Intermediate RLS Verified 03/28/24 16:46 Consultations 03/28/24 16:21 ED Decision to Admit Stat 03/28/24 16:27 Consult Orthopedic Surgery Routine Hospital Course (1) Avascular necrosis of femoral head: 63 yo M with history of COPD, chronic hypoxic respite failure, hypertension, mood disorder, presenting with progressive left hip pain times few months. 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 Fall precautions Appreciate orthopedics input Needs follow-up with orthopedics on discharge for possible steroid injection versus arthroplasty Pain control PT OT recommends rehab - plan to Dc to [facility] Hypokalemia Replace and monitor Hypertension Continue chlorthalidone Added amlodipine BP much improved , Monitor BP COPD Chronic respiratory failure with hypoxia No signs of exacerbation Continue home inhaler Total Time Total Time Spent Total Time Spent (In Minutes): 40 Discharge Plan Discharge Items Patient Disposition: Transfer [facility] Reason For Visit: HIP PAIN Discharge Diagnosis: Avascular necrosis of femoral head 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 Take tramadol and oxycodone for pain as needed as prescribed. You may need to take stool softeners to make sure you have regular bowel movements while taking opiates. In addition, take amlodipine 2.5 mg daily to help with your blood pressure. Monitor your blood pressure, you medications may need further adjustment. Pending Studies at Discharge: No Stand-Alone Forms: My [facility] Skilled Items Patient informed of condition?: Yes DNR: No Discharge Level of Care: Skilled Communicable Disease: No Discharge Prognosis: Stable Lines: None Urinary Catheter: No Medications and DC Order Prescriptions: New amlodipine [Norvasc] 5 mg Tablet 2.5 mg PO QAM Qty: 30 0RF acetaminophen [Tylenol Extra Strength] 500 mg Tablet 1,000 mg PO Q8H Qty: 20 0RF oxycodone 5 mg Tablet 5 mg PO Q6H PRN (Reason: pain) Qty: 14 0RF tramadol 50 mg Tablet 50 mg PO Q6H PRN (Reason: pain) Qty: 14 0RF Continued (DME) Portable Oxygen Misc See Rx Instructions .ROUTE Rx Instructions: 2LPM at rest, with activity, and at bedtime Anoro Ellipta 62.5-25 mcg/actuation blister with device 1 inh inhalation DAILY Rx Instructions: PER PT "USED FOR 1 MONTH, THEN STOPPED, TOO EXPENSIVE". albuterol sulfate 90 mcg/actuation HFA aerosol inhaler 2 puff inhalation Q6H PRN (Reason: Cough) chlorthalidone 25 mg tablet 25 mg PO DAILY Rx Instructions: PER PT "NEVER PICKED UP FROM PHARMACY Discharge Orders: Discharge Order (Routine); Ordered 04/07/24 Ordered By: Bo Gabriel Admission Data Admit Date/Time: 03/28/24 16:27 Attending Provider: Bo Gabriel Admit Provider: Tima Laguerre Primary Care Provider: Luis Miguel Edgar Other Providers: Tima Laguerre; Chase Andre; Santosh Collier; Doug Richards; Carolyn Giron; Arnold Ludwig; Laura Dennis; Phani Sandoval; You Greer; Cande Almendarez Andrew J.; You Motley; Clark Escalera; Huy Austin; Prieto Gonsales; Michael Bass; Laura Pradhan; Erlin Toribio Adam M.; Elver Rothman; Maria Del Rosario Douglass; Camden Bosch; Kuldip Atkinson; Kristan Reyez; Richardson Townsend; Merle Ch; [facility]; Zohaib Zabala
[2024-04-07 11:07] VITALS: PULSE 54
== END 2024-04-07 11:48 | DRG 554 ==
LOC: ED 11:30 → EDINP 16:27 → SUATTDRO 16:27 → INTOOBSV 16:27 → 2W 20:39